=== PATIENT | female | born 1955 | race Caucasian/White ===

== ENCOUNTER → 2020-04-24 11:39 | Outpatient (BNVA) | payer OTHER, SELFPAY | PROVIDERS: PCP Internal Medicine; Referring Provider Internal Medicine; Visit Provider Nurse Practitioner Family | DX: I25.84 Coronary atherosclerosis due to calcified coronary lesion (principal); I73.9 Peripheral vascular disease, unspecified; I10 Essential (primary) hypertension; F17.210 Nicotine dependence, cigarettes, uncomplicated; Z79.899 Other long term (current) drug therapy | CPT/HCPCS: 99213 ==

== ENCOUNTER → 2020-10-09 13:04 | Outpatient (BNVA) | payer OTHER, SELFPAY | PROVIDERS: PCP Internal Medicine; Visit Provider Internal Medicine Cardiovascular Disease | DX: I20.8 Other forms of angina pectoris (principal); I10 Essential (primary) hypertension; Z79.899 Other long term (current) drug therapy | CPT/HCPCS: 93005; 99212 ==

== ENCOUNTER 2020-12-05 10:35 | Outpatient (REF) | payer OTHER, SELFPAY ==
[2020-12-05 11:24] LABS: Glucose Urine UA NEG (NEG); Leukocyte Esterase Urine NEG (NEG); Nitrite Urine NEG (NEG); PH 5.5 (5.0-8.0); Specific Gravity - Urine 1.025 (1.005-1.025); Urine Blood 1+ (NEG); Urine Ketones NEG (NEG); Urine Protein NEG (NEG-TRACE)
[2020-12-05 11:29] LABS: Appearance Urine CLEAR; Color Urine YELLOW
[2020-12-05 11:50] LABS: MANUAL DIFF FLAG NO
[2020-12-05 12:06] LABS: Basophils Absolute Auto 0.1 X10*3/uL (0.0-0.2); Basophils Percent Auto 1.2 % (0-2); Eosinophils Absolute Auto 0.1 X10*3/uL (0.0-0.4); Eosinophils Percent Auto 2.2 % (0-4); Hematocrit 47.3 % (37-47); Hemoglobin 15.6 g/dl (12.0-16.0); Imm Gran Abs Auto 0.03 X10*3/uL (0.00-0.03); Imm Gran Pct Auto 0.5 % (0.0-0.4); Lymphocytes Absolute Auto 1.3 X10*3/uL (1.2-4.9); Lymphocytes Percent Auto 21.6 % (20-40); Mean Corpuscular Hemoglobin 29.7 pg (27.0-33.0); Mean Corpuscular Volume 90.1 fL (80-98); Mean Platelet Volume 9.8 fL (9.4-12.3); Monocytes Absolute Auto 0.4 X10*3/uL (0.1-1.2); Monocytes Percent Auto 6.7 % (2-11); Neutrophils Absolute Auto 3.9 X10*3/uL (2.0-8.3); Neutrophils Percent Auto 67.8 % (45-73); Platelet Count 213 X10*3/uL (160-400); Red Blood Count 5.25 X10*6/uL (4.20-5.50); Red Cell Distribution Width 14.9 % (11.0-16.0); White Blood Count 5.8 X10*3/uL (4.8-10.8)
[2020-12-05 12:10] LABS: C Reactive Protein 0.82 mg/dL (< or = 0.50)
[2020-12-05 12:21] LABS: Estimated Average Glucose 114 mg/dL; Hemoglobin A1C 153.1221 umol/L; Hemoglobin A1c % 5.6 %
[2020-12-05 12:36] LABS: Bacteria Urine 3+ /LPF; Squamous Epithelial Cell Urine 4+ /LPF
[2020-12-05 12:40] LABS: Free T4 (Free Thyroxine) 0.96 ng/dL (0.71-1.85); Thyroid Stimulating Hormone 1.66 uIU/mL (0.32-4.0); Vitamin D 25-OH Total 13.5 ng/mL (>30)
[2020-12-05 12:42] LABS: B Type Natriuretic Peptide 12 pg/mL (<100); Folate 11.6 ng/mL (> or = 4.0); Vitamin B12 291 pg/mL (200-900)
[2020-12-05 12:45] LABS: Rheumatoid Factor < 15.0 IU/mL (<15.0)
[2020-12-05 12:49] LABS: Alanine Aminotransferase 64 U/L (0-31); Albumin Level 4.2 g/dL (3.5-5.0); Alkaline Phosphatase 77 U/L (39-117); Anion Gap 13 (12-20); Aspartate Amino Transferase 46 U/L (5-31); Bilirubin Total 0.6 mg/dL (0.0-1.0); Blood Urea Nitrogen 10 mg/dL (9-16); Calcium 9.3 mg/dL (8.4-10.2); Carbon Dioxide 26 mmol/L (22-29); Chloride 106 mmol/L (96-108); Cholesterol 198 mg/dL; Estimated Glomerular Filt Rate > 60; Glucose Random 98 mg/dL (60-115); HDL Cholesterol 48 mg/dL; LDL Cholesterol Calculated 91 mg/dl; Potassium 3.9 mmol/L (3.3-5.1); Sodium 141 mmol/L (135-145); Total Protein 6.6 g/dL (6.5-8.0); Triglycerides 296 mg/dL
[2020-12-05 13:32] LABS: Erythrocyte Sedimentation Rate 14 MM/HR (0-20)
[2020-12-06 06:47] LABS: Lyme Abs Screen <0.90 index
[2020-12-10 11:57] LABS: Cyclic Citrullinated Peptide <16 UNITS
== END 2020-12-05 10:36 | disposition home or self-care (01) ==
LOC: HO.LAB 10:35
PROVIDERS: Absent Provider Student in an Organized Health Care Education/Training Program; PCP Internal Medicine; Visit Provider Internal Medicine
DX: M25.50 Pain in unspecified joint (principal); I25.10 Atherosclerotic heart disease of native coronary artery without angina pectoris; I25.84 Coronary atherosclerosis due to calcified coronary lesion; E78.00 Pure hypercholesterolemia, unspecified
CPT/HCPCS: 36415; 80053; 80061; 81001; 82306; 82607; 82746; 83036; 83880; 84439; 84443; 85025; 85652; 86140; 86200; 86431; 86617; 86618

== ENCOUNTER 2020-12-30 08:16 | Outpatient (REF) | payer OTHER, SELFPAY ==
--- NOTE | ~2020-12-30 | US_ITS ---
EXAMINATION: US ABDOMEN COMPLETE CLINICAL INFORMATION: Elevated LFTs. COMPARISON: X-ray abdomen KUB 08/24/2016. Ultrasound abdomen 02/03/2016. CT abdomen and pelvis 07/05/2009. TECHNIQUE: Real-time imaging of the abdominal viscera. FINDINGS: PANCREAS: Normal. ABDOMINAL AORTA: The proximal, mid, and distal segments are normal in caliber. INFERIOR VENA CAVA: Visualized portions are normal. LIVER: The liver is normal in size. The liver contour is normal. Liver echotexture is increased. No focal hepatic lesion. There is no intrahepatic biliary duct dilatation seen. GALLBLADDER: Normal. The gallbladder is physiologically distended without evidence of stones, sludge, polyps, wall thickening or pericholecystic fluid. COMMON BILE DUCT: Normal in caliber measuring 0.5 cm in diameter. RIGHT KIDNEY: Normal. No hydronephrosis. No renal calculi or focal parenchymal lesions. The kidney measures 11.4 cm in maximum dimension. LEFT KIDNEY: There is a 1 x 0.7 x 0.7 cm cyst No hydronephrosis or renal calculi. The kidney measures 11.0 cm in maximum dimension. SPLEEN: Normal. The spleen measures 9.1 cm in maximum dimension. FREE FLUID: None. US/US abdomen complete IMPRESSION: Echogenic liver probably probably representing fatty infiltration. Small left renal cyst.
== END 2020-12-30 08:17 | disposition home or self-care (01) ==
LOC: HO.US 08:16
PROVIDERS: Visit Provider Internal Medicine
DX: R79.89 Other specified abnormal findings of blood chemistry (principal)
CPT/HCPCS: 76700

== ENCOUNTER 2021-01-03 12:30 | Outpatient (REF) | payer OTHER, SELFPAY ==
--- NOTE | ~2021-01-03 | MM_ITS ---
EXAMINATION: BONE DENSITOMETRY CLINICAL INDICATION: Other specified disorders of bone density and structure. COMPARISON: Baseline BD dated 02/18/2016. TECHNIQUE: Using a Estimize DXA System (software version: 13.1) manufactured by [employer], dual-energy x-ray absorptiometry was performed of the lumbar spine and left hip. The images are of good technical quality. Summary results are attached. FINDINGS: AP SPINE L1-L4: Current: BMD 1.394 g/cm2, Z-score 2.2, T-score 1.8, normal, 0.6% increase from baseline (<5% change is not significant). Baseline: BMD 1.385 g/cm2. LEFT FEMUR, NECK: Current: BMD 0.728 g/cm2, Z-score -1.5, T-score -2.2, osteopenia. Baseline: BMD 0.954 g/cm2. LEFT FEMUR, TOTAL: Current: BMD 0.949 g/cm2, Z-score -0.1, T-score -0.5, normal, 12.1% decrease from baseline (<5% change is not significant). Baseline: BMD 1.080 g/cm2. IDENTIFIED RISK FACTORS: Osteoporosis, tobacco use (current smoker), low calcium intake, history of fracture (adult), menopause. HISTORY OF FRACTURE: Other. Pelvis. MEDICATIONS: None listed. MM/XR DEXA axial skeleton IMPRESSION: 1. DIAGNOSIS: Osteopenia based on the lowest T-score value of -2.2 in the femoral neck applying World Health Organization criteria. 2. 10-YEAR FRACTURE RISK PREDICTION, FRAX: Major osteoporotic fracture (clinical spine, forearm, hip or shoulder) 17.3%. Hip fracture 4.4%. 3. Treatment Recommendations: NOF guidelines recommend consideration for treatment in postmenopausal women and men age 50 and older presenting with the following: -A hip or vertebral (clinical or morphometric) fracture. -T-score less than or equal to -2.5 at the femoral neck or spine after appropriate evaluation to exclude secondary causes. -Low bone mass at the hip or spine and a 10-year fracture probability by FRAX of greater than or equal to 3% for hip fracture or greater than or equal to 20% for major osteoporotic fracture based on the [place] adapted WHO algorithm. 4. Other Recommendations: All treatment decisions require clinical judgment and consideration of individual patient factors, including patient preferences, comorbidities, previous drug use, risk factors not captured in the FRAX model (e.g. frailty, falls, vitamin D deficiency, increased bone turnover, interval significant decline in bone density) and possible under or overestimation of fracture risk by FRAX. Additional medical evaluation for secondary cause of low bone mineral density may be appropriate. FUTURE SCAN RECOMMENDATION: People with diagnosed cases of osteoporosis or at high risk for fracture should have regular bone mineral density tests. For patients eligible for Medicare, routine testing is allowed once every 2 years. The testing frequency can be increased to one year for patients who have rapidly progressing disease, those who are receiving or discontinuing medical therapy to restore bone mass, or have additional risk factors.
--- NOTE | ~2021-01-03 | MM_ITS ---
EXAMINATION: MM SCREENING DIGITAL BREAST TOMOSYNTHESIS, BILATERAL CLINICAL INFORMATION: Screening. Asymptomatic. History LCIS left breast, stereotactic biopsy 2010. No additional LCIS at excision. The lifetime risk of breast cancer based on the Tyrer-Cuzick Model is 43%. COMPARISON: Mammography: 04/19/2019, and prior exams dating back to 11/11/2009. TECHNIQUE: Digital breast tomosynthesis is performed in both the craniocaudal and mediolateral oblique views along with computer-aided detection (CAD). Synthesized 2D images are generated from the tomosynthesis. Additional left CC and bilateral MLO views are provided. FINDINGS: There are scattered areas of fibroglandular density (ACR BI-RADS breast composition Category b). Right breast parenchymal pattern is similar to prior studies. There is no interval mass or developing density or architectural abnormality. No abnormal calcifications. The bilateral axilla and skin contours are unremarkable. Left breast has some minor scarring upper outer quadrant similar to prior exams consistent with prior excisional biopsy. There is new left high attenuation smooth tubular mass mid central upper outer quadrant near area of scarring measuring 2 cm in length and under 0.3 cm thickness. This may represent focal duct ectasia. The high attenuation may suggest milk of calcium. No architectural abnormality. Patient will be recalled for additional imaging. MM/MM tomosynthesis screening BI IMPRESSION: 1. Left: New focal high attenuation tubular mass possibly duct ectasia mid upper outer quadrant. 2. Right: No mammographic evidence of malignancy. ASSESSMENT: BI-RADS 0: Incomplete - Need Additional Imaging Evaluation RECOMMENDATION: 1. Additional views of the left breast (magnification CC, magnification ML) 2. Targeted ultrasound left breast. 3. Radiology department staff will contact the patient for additional imaging. This patient's information was entered into a reminder system with a target due date for their next mammogram.
== END 2021-01-03 12:31 | disposition home or self-care (01) ==
LOC: HO.MAMMO 12:30
PROVIDERS: Visit Provider Internal Medicine
DX: Z12.31 Encounter for screening mammogram for malignant neoplasm of breast (principal); M81.0 Age-related osteoporosis without current pathological fracture; M85.80 Other specified disorders of bone density and structure, unspecified site; Z72.0 Tobacco use; Z78.0 Asymptomatic menopausal state
CPT/HCPCS: 77063; 77067; 77080

== ENCOUNTER 2021-01-17 12:07 | Outpatient (REF) | payer OTHER, SELFPAY ==
--- NOTE | ~2021-01-17 | US_ITS ---
EXAMINATION: MM DIAGNOSTIC DIGITAL MAMMOGRAPHY, LEFT US DIAGNOSTIC ULTRASOUND BREAST, LEFT CLINICAL INFORMATION: Recall from screening for new smooth high attenuation tubular mass mid central upper outer left breast near area of old scarring. Prior history left LCIS status post excision 12/30/2010. TC score 43%. COMPARISON: Mammography: 01/03/2021, 04/19/2019 TECHNIQUE: Digital mammography is performed in the following views: Magnification CC, magnification ML Ultrasound left breast is targeted to the outer quadrant. Grayscale imaging is performed without and with harmonics. FINDINGS: There are scattered areas of fibroglandular density (ACR BI-RADS breast composition Category b). The additional views show similar findings to the screening exam 01/03/2021. There is a tubular macrolobulated high attenuation mass upper outer quadrant near prior area of excisional biopsy measuring approximately 2.2 cm in length and up to 0.3 cm thickness. There are no individual calcification particles or layering milk of calcium. No spiculation. Margins are smooth. Targeted ultrasound demonstrates no cystic or solid mass or architectural abnormality. There is no ultrasound correlate for finding on mammography. Results are discussed with the patient at time of visit. Findings left breast may represent focal duct ectasia possibly with uniform cast calcification. This could be sequela from prior mastitis although no history of mastitis is known. Given the past history left breast LCIS, stereotactic sampling is recommended for further assessment. At this time, patient has declined stereotactic sampling. US/US breast LT limited IMPRESSION: Probable focal duct ectasia mid left breast possibly with benign cast calcification. ASSESSMENT: BI-RADS 4: Suspicious (subcategory 4A: Low suspicion for malignancy) RECOMMENDATION: Stereotactic biopsy is recommended (currently declined by patient). If not performed, then follow-up left diagnostic mammography is recommended in 6 months. This patient's information was entered into a reminder system with a target due date for their next mammogram.
== END 2021-01-17 12:08 | disposition home or self-care (01) ==
LOC: HO.MAMMO 12:07
PROVIDERS: Visit Provider Internal Medicine
DX: N63.21 Unspecified lump in the left breast, upper outer quadrant (principal)
CPT/HCPCS: 76642; 77065

== ENCOUNTER 2021-02-11 12:48 | Outpatient (REF) | payer OTHER, SELFPAY ==
[2021-02-11 14:11] LABS: Alanine Aminotransferase 33 U/L (0-31); Albumin Level 4.1 g/dL (3.5-5.0); Alkaline Phosphatase 72 U/L (39-117); Aspartate Amino Transferase 26 U/L (5-31); Bilirubin Direct 0.2 mg/dL (0.0-0.5); Bilirubin Total 0.3 mg/dL (0.0-1.0); Total Protein 6.5 g/dL (6.5-8.0)
[2021-02-11 14:30] LABS: Glucose Urine UA NEG (NEG); Leukocyte Esterase Urine NEG (NEG); Nitrite Urine NEG (NEG); Specific Gravity - Urine 1.025 (1.005-1.025); Urine Blood TRACE (NEG); Urine Ketones NEG (NEG); Urine Protein NEG (NEG-TRACE)
[2021-02-11 14:36] LABS: Appearance Urine HAZY; Color Urine YELLOW
[2021-02-11 14:42] LABS: Squamous Epithelial Cell Urine 2+ /LPF; WBC Urine 0-2 /HPF (0-4)
[2021-02-12 08:13] LABS: HBc Num1 0.09 S/CO (0.00-0.79); Hepatitis B Core Antibody Nonreactive (Nonreactive); Hepatitis B Surface Antigen Negative (Negative); ~HepC Num1 0.24 S/CO (0.00-0.79); ~Hepatitis C Antibody Nonreactive (Nonreactive)
[2021-02-12 08:29] LABS: HBS Num1 0.28 mIU/mL (0-7.99); ~Hepatitis B Surface Antibody NONREACTIVE (Nonreactive)
== END 2021-02-11 12:49 | disposition home or self-care (01) ==
LOC: HO.LAB 12:48
PROVIDERS: PCP Internal Medicine; Visit Provider Internal Medicine
DX: R94.5 Abnormal results of liver function studies (principal)
CPT/HCPCS: 36415; 80076; 81001; 86704; 86706; 86803; 87340

== ENCOUNTER 2021-09-26 08:52 | Outpatient (REF) | payer OTHER, SELFPAY ==
[2021-09-26 09:55] LABS: Alanine Aminotransferase 79 U/L (0-31); Albumin Level 3.9 g/dL (3.5-5.0); Alkaline Phosphatase 111 U/L (39-117); Anion Gap 12 (12-20); Aspartate Amino Transferase 60 U/L (5-31); Bilirubin Total 0.6 mg/dL (0.0-1.0); Blood Urea Nitrogen 11 mg/dL (9-16); Calcium 9.8 mg/dL (8.4-10.2); Carbon Dioxide 30 mmol/L (22-29); Chloride 105 mmol/L (96-108); Cholesterol 129 mg/dL; Estimated Glomerular Filt Rate > 60; Glucose Random 103 mg/dL (60-115); HDL Cholesterol 57 mg/dL; LDL Cholesterol Calculated 47 mg/dl; Sodium 142 mmol/L (135-145); Total Protein 6.5 g/dL (6.5-8.0); Triglycerides 128 mg/dL
== END 2021-09-26 08:53 | disposition home or self-care (01) ==
LOC: HO.LAB 08:52
PROVIDERS: PCP Internal Medicine; Visit Provider Internal Medicine
DX: E78.00 Pure hypercholesterolemia, unspecified (principal)
CPT/HCPCS: 36415; 80053; 80061

== ENCOUNTER 2022-04-22 10:41 | Emergency (ER) | payer OTHER, SELFPAY | END 2022-04-22 11:51 | disposition left against medical advice (07) | PROVIDERS: Emergency Provider Emergency Medicine; PCP Internal Medicine | DX: R22.2 Localized swelling, mass and lump, trunk (principal) ==

== ENCOUNTER 2022-04-26 13:45 | Emergency (ER) | payer OTHER, SELFPAY ==
[2022-04-26 14:24] VITALS: BP 194/82; PULSE 85; RESP 19; TEMP 36.6; O2SAT 98; BMI 39.6
== END 2022-04-26 16:05 | disposition left against medical advice (07) ==
PROVIDERS: Emergency Provider Emergency Medicine; PCP Internal Medicine
DX: N64.4 Mastodynia (principal)
CPT/HCPCS: 99281

== ENCOUNTER 2022-04-30 10:57 | Outpatient (REF) | payer OTHER, SELFPAY ==
--- NOTE | ~2022-04-30 | MM_ITS ---
EXAMINATION: MM DIAGNOSTIC DIGITAL BREAST TOMOSYNTHESIS, BILATERAL CLINICAL INFORMATION: Due for yearly. History left LCIS 2010. Follow-up calcified duct ectasia mid upper outer left breast noted on prior imaging 01/03/2021 COMPARISON: Mammography: 01/17/2021, 01/03/2021, 04/19/2019, 04/13/2018; targeted left breast ultrasound 01/17/2021. TECHNIQUE: Digital breast tomosynthesis is performed in both the craniocaudal and mediolateral oblique views along with computer-aided detection (CAD). Synthesized 2D images are generated from the tomosynthesis. FINDINGS: The breasts are almost entirely fatty (ACR BI-RADS breast composition Category a). Background stromal markings are stable. Neither breast shows interval mass or architectural abnormality or abnormal calcifications. The 2 cm long calcified duct ectasia central mid outer left breast is similar to prior exam. Left breast will be reassessed again in 6 months. The axilla and skin contours are unremarkable. Results are provided to the patient at time of visit by the technologist. MM/MM tomosynthesis diagnostic BI IMPRESSION: Left: -Calcified duct ectasia central mid left breast stable from prior exam. Right: -No mammographic evidence of malignancy. ASSESSMENT: BI-RADS 3: Probably Benign RECOMMENDATION: Diagnostic left mammography in 6 months. This patient's information was entered into a reminder system with a target due date for their next mammogram.
== END 2022-04-30 10:58 | disposition home or self-care (01) ==
LOC: HO.MAMMO 10:57
PROVIDERS: PCP Internal Medicine; Visit Provider Internal Medicine
DX: R92.1 Mammographic calcification found on diagnostic imaging of breast (principal)
CPT/HCPCS: 77062; 77066

== ENCOUNTER 2023-05-11 14:11 | Outpatient (AMB) | payer MEDICARE, SELFPAY ==
[2023-05-11 14:25] VITALS: BP 162/98; PULSE 81; O2SAT 95
--- NOTE | 2023-05-11 14:25 | MHC.PC.OV ---
Vital Signs 05/11/23 14:25 Height 5 ft 1 in BMI Reason not done Patient refused/unable BP 162/98 H Blood Pressure Location Lt brachial Position Sitting Pulse 81 Pulse Source Pulse Oximeter Pulse Oximetry (%) 95 Oxygen Delivery Method Room Air Intake Visit Reasons: f/u appt Allergies codeine [Codeine] Allergy (Intermediate, Verified 05/11/23 14:26) VOMITING/RASH ibuprofen [IBUPROFEN] Allergy (Intermediate, Verified 05/11/23 14:26) TACHYCARDIA acetaminophen [From Vicodin] Allergy (Unknown, Verified 05/11/23 14:26) Unknown aspirin Allergy (Unknown, Verified 05/11/23 14:26) Unconscious fenofibrate Allergy (Unknown, Verified 05/11/23 14:26) Unknown hydrocodone [From Vicodin] Allergy (Unknown, Verified 05/11/23 14:26) Unknown Tobacco use date assessed: 05/11/23 Fall risk assessment: No Falls in past year Last assessed Fall Risk: 05/11/23 Dental Screening Dental Screen Date: 05/11/23 Did you have a dental visit in the last 12 months?: No Did you have a dental problem in the last 6 months where you did not have access to dental care?: No Was dental information given to patient?: Patient has dentist HPI f/u appt HPI Details 67-year-old obese female smoker with coronary artery disease, hypertension hypercholesterolemia, GERD and generalized anxiety disorder last seen in July 2022 having left breast calcification and advised to get the mammogram patient is here for follow-up. PAteint sees Dr. Jet kim has cataract. PAteint was seen by the eye doctor and was told poor vision - awaiting notes. [facility] Medical History (Updated 04/01/22 @ 13:43 by Katlin Otero MD) Insomnia Carpal tunnel syndrome Anxiety and depression Osteoarthritis Tobacco abuse Hypercholesterolemia Peripheral arterial disease Obesity (BMI 30-39.9) Gastroesophageal reflux disease Coronary artery disease Hypertension Obstructive sleep apnea Surgical History Status post insertion of drug-eluting stent into right coronary artery for coronary artery disease S/P breast biopsy, left History of knee replacement procedure of left knee History of tubal ligation Family History (Updated 05/11/23 @ 14:27 by Daysi Swain CMA) Father Cancer Mother Stroke Diabetes mellitus HTN (hypertension) Brother No problems noted. Brother No problems noted. Brother No problems noted. Brother No problems noted. Brother No problems noted. Brother No problems noted. Sister No problems noted. Sister No problems noted. Daughter No problems noted. Daughter No problems noted. Daughter No problems noted. Social History (Updated 12/05/20 @ 09:44 by Daysi Swain [facility]) Housing: Apartment Alcohol intake: current Alcohol intake frequency: a few times a month Patient Tobacco Use Status: Current everyday Tobacco user Tobacco use type: Cigarette Cigarettes Per Day: 5 e-Cigarette/Vaping Use: Never Used Second Hand Smoke Exposure: Yes service: No Current occupational status: unemployed Cognitive needs: No Hearing needs: No Vision needs: No Questionnaire PHQ-9 Over the last 2 weeks, how often have you been bothered by any of the following problems? 1. Little interest or pleasure in doing things: several days 2. Feeling down, depressed, or hopeless: several days 3. Trouble falling or staying asleep, or sleeping too much: several days 4. Feeling tired or having little energy: several days 5. Poor appetite or overeating: not at all 6. Feeling bad about yourself - or that you are a failure or have let yourself or your family down: not at all 7. Trouble concentrating on things, such as reading the newspaper or watching television: not at all 8. Moving or speaking so slowly that other people could have noticed. Or the opposite - being so fidgety or restless that you have been moving around a lot more than usual: not at all 9. Thoughts that you would be better off or of hurting yourself in some way: not at all Total score: 4 Depression Screening Interpretation: Positive Depression Screening Done: Yes Source: Developed by Drs. Jesús Smallwood, Pallavi Garcia, Maurice Farrell and colleagues, with an educational sofia from [employer]. Thrive Questionnaire Date Thrive assessed: 07/30/22 AUDIT C Alcohol Use Questionnaire (AUDIT-C) 1. How often do you have a drink containing alcohol?: 2-4 times a month 2. How many drinks containing alcohol do you have on a typical day when you are drinking?: 3 or 4 3. How often do you have six or more drinks on one occasion?: Never Total Score: 3 AJ-7 AMB Questionnaire AJ-7 Date AJ - 7 assessed: 07/30/22 Source: Developed by Drs. Jesús Smallwood, Pallavi Garcia, Maurice Farrell and colleagues, with an educational sofia from [employer]. Physical exam (Primary Care) Vital Signs: Last Vital Signs Pulse 81 05/11/23 14:25 BP 162/98 H 05/11/23 14:25 Pulse Ox 95 05/11/23 14:25 Oxygen Delivery Method Room Air 05/11/23 14:25 Tobacco/Smoking Status: Tobacco use Status Tobacco use date assessed 05/11/23 05/11/23 14:34 Patient Tobacco Use Status Current everyday Tobacco 05/11/23 14:34 Tobacco use type Cigarette 05/11/23 14:28 e-Cigarette/Vaping Use Never Used 05/11/23 14:28 PHQ-9: PHQ-9 Score PHQ-9: Total score 4 05/11/23 14:42 Depression Screening Interpretation: Positive Thrive Assessment: Date of Thrive Assessment Date Thrive assessed 07/30/22 05/11/23 14:28 Const General: alert; No acute distress Eyes Conjunctivae: conjunctivae normal Resp Auscultation: clear to auscultation bilaterally Cardio Rate: regular rate Rhythm: regular rhythm GI Inspection: Yes normal to inspection Extrem General: Yes normal to inspection and No edema Immunizations pneumoc 20-kristi conj-dip cr(PF) 0.5 mL IM syringe Performing Provider: Katlin Otero MD Performing Location: [facility] Administered by: Daysi Swain CMA on 05/11/23 14:56 Dose Route Admin Location Dispensed Lot Number Expiration Date NDC Family Practice Doctor 0.5 mL IM Left Deltoid 0.5 mL [id number] 04/04/24 7045-2978-76 [employer] VIS Given Date VIS Provided VIS Publication Date 05/11/23 Single Vaccine 21 Eligibility Eligibility Date Funding Source Not [facility] Eligible 05/11/23 Private Assessment and Plan Assessment & Plan (1) Colonoscopy refused: Code(s): Z53.20 - Procedure and treatment not carried out because of patient's decision for unspecified reasons (2) Hypertension: Comment: Mildly elevated Code(s): I10 - Essential (primary) hypertension Qualifiers: Hypertension type: essential hypertension Qualified Code(s): I10 - Essential (primary) hypertension Plan: Continue with blood pressure medication. Decrease salt intake and exercise patient is on amlodipine 5 mg once a day lisinopril 20 mg once a day and metoprolol 25 mg once a day (3) Obstructive sleep apnea: Comment: decline CPAP 09/2021 Code(s): G47.33 - Obstructive sleep apnea (adult) (pediatric) Plan: Discussed importance of treating sleep apnea (4) Coronary artery disease: Comment: ZACARIAS to mid RCA, OM 65-70% stenosis 2014. nuclear stress -01/2019 NML Code(s): I25.10 - Atherosclerotic heart disease of [place] coronary artery without angina pectoris Qualifiers: Coronary Disease-Associated Artery/Lesion type: due to calcified coronary lesion Qualified Code(s): I25.10 - Atherosclerotic heart disease of [place] coronary artery without angina pectoris; I25.84 - Coronary atherosclerosis due to calcified coronary lesion Plan: Control the cholesterol, weight, blood pressure, patient was advised to get the blood work not (5) Obesity (BMI 30-39.9): Code(s): E66.9 - Obesity, unspecified Plan: Diet and exercise (6) Gastroesophageal reflux disease: Code(s): K21.9 - Gastro-esophageal reflux disease without esophagitis Qualifiers: Esophagitis presence: esophagitis presence not specified Qualified Code(s): K21.9 - Gastro-esophageal reflux disease without esophagitis Plan: Avoid the foods that causes that usually spicy foods, tomato products, juices, coffee, soda and foods that your sensitive to. After eating do not lie down, allow 3-4 hours before in lie down. And keep the head of bed above 30 degrees to avoid the acid from going up. (7) Hypercholesterolemia: Comment: Discussed about the blood work. She does have the form and has been advised to do the blood work Code(s): E78.00 - Pure hypercholesterolemia, unspecified Plan: Avoid fried foods, chicken skin, eggs, butter margarine, pastries and meat. Be it pork or beef they have a lot of cholesterol LDL goal of less than 70 and triglyceride of less than 150. Patient on rosuvastatin 20 mg once a day reminded about blood work (8) Tobacco abuse: Comment: patient is not ready to stop yet Code(s): Z72.0 - Tobacco use Plan: Patient advised to stop! (9) Breast calcification, left: Code(s): R92.1 - Mammographic calcification found on diagnostic imaging of breast Plan: Patient is reminded about the mammogram Orders: Orders MM tomosynthesis diagnostic BI Today R92.1 - Mammographic calcification found on diagnostic imaging of breast Pneumococcal 20 Immunization Today Z23 - Encounter for immunization Coding Level of Care Code Est Pt Level 4 (87377) Diagnoses Colonoscopy refused Z53.20 Essential hypertension I10 Hypertension type: essential hypertension Obstructive sleep apnea G47.33 Coronary artery disease due to calcified coronary lesion I25.10; I25.84 Coronary Disease-Associated Artery/Lesion type: due to calcified coronary lesion Obesity (BMI 30-39.9) E66.9 Gastroesophageal reflux disease, unspecified whether esophagitis present K21.9 Esophagitis presence: esophagitis presence not specified Hypercholesterolemia E78.00 Tobacco abuse Z72.0 Breast calcification, left R92.1
== END 2023-05-11 15:03 | disposition home or self-care (01) ==
PROVIDERS: PCP Internal Medicine; Visit Provider Internal Medicine
DX: Z23 Encounter for immunization (principal); I10 Essential (primary) hypertension; G47.33 Obstructive sleep apnea (adult) (pediatric); I25.84 Coronary atherosclerosis due to calcified coronary lesion; E78.00 Pure hypercholesterolemia, unspecified; R92.1 Mammographic calcification found on diagnostic imaging of breast
CPT/HCPCS: 90471; 90677; 99214

== ENCOUNTER 2023-07-06 14:10 | Outpatient (REF) | payer MEDICARE, SELFPAY ==
--- NOTE | ~2023-07-06 | MM_ITS ---
EXAMINATION: MM DIAGNOSTIC DIGITAL BREAST TOMOSYNTHESIS, BILATERAL CLINICAL INFORMATION: Due for yearly. History of LCIS 2010. Follow-up calcified duct mid upper outer left breast noted on prior imaging. COMPARISON: Mammography: 04/30/2022, 01/17/2021, 01/03/2021, 04/19/2019, 04/13/2018; targeted left breast ultrasound 01/17/2021. TECHNIQUE: Digital breast tomosynthesis is performed in both the craniocaudal and mediolateral oblique views along with computer-aided detection (CAD). Synthesized 2D images are generated from the tomosynthesis. In addition, 2-D spot magnification CC and ML views were obtained of the left breast. FINDINGS: There are scattered areas of fibroglandular density (ACR BI-RADS breast composition Category b). Stable dystrophic linear calcification in the left breast upper slightly outer quadrant, middle one third. This is benign. Otherwise, there are no suspicious masses, suspicious grouped calcifications, or areas of architectural distortion in either breast. The parenchymal pattern is stable from prior exams. MM/MM tomosynthesis diagnostic BI IMPRESSION: No mammographic evidence of malignancy. Stable benign findings including linear calcification in the left breast. No need for further follow-up as this is benign. ASSESSMENT: BI-RADS BI-RADS 2 - Benign Findings RECOMMENDATION: 1 year F/U Results were provided to the patient at time of visit by the technologist. This patient's information was entered into a reminder system with a target due date for their next mammogram.
== END 2023-07-06 14:11 | disposition home or self-care (01) ==
LOC: HO.MAMMO 14:10
PROVIDERS: PCP Internal Medicine; Visit Provider Internal Medicine
DX: R92.1 Mammographic calcification found on diagnostic imaging of breast (principal)
CPT/HCPCS: 77062; 77066

== ENCOUNTER → 2023-07-06 14:30 | Outpatient (BNV) | payer MEDICARE, SELFPAY | PROVIDERS: PCP Internal Medicine; Visit Provider Radiology Diagnostic Radiology | DX: Z85.3 Personal history of malignant neoplasm of breast (principal) | CPT/HCPCS: 77066; G0279 ==

== ENCOUNTER 2024-04-14 11:18 | Outpatient (REF) | payer MEDICARE, SELFPAY ==
[2024-04-14 11:49] LABS: MANUAL DIFF FLAG NO
[2024-04-14 12:10] LABS: Basophils Absolute Auto 0.1 X10*3/uL (0.0-0.2); Basophils Percent Auto 1.1 % (0-2); Eosinophils Absolute Auto 0.1 X10*3/uL (0.0-0.4); Eosinophils Percent Auto 1.7 % (0-4); Hematocrit 46.3 % (37.0-47.0); Hemoglobin 16.5 g/dl (12.0-16.0); Imm Gran Abs Auto 0.04 X10*3/uL (0.00-0.03); Imm Gran Pct Auto 0.6 % (0.0-0.4); Lymphocytes Absolute Auto 1.2 X10*3/uL (1.2-4.9); Mean Corpuscular HGB Conc 35.6 g/dl (31.0-35.0); Mean Corpuscular Hemoglobin 31.5 pg (27.0-33.0); Mean Corpuscular Volume 88.5 fL (80.0-98.0); Mean Platelet Volume 9.5 fL (9.4-12.3); Monocytes Absolute Auto 0.6 X10*3/uL (0.1-1.2); Neutrophils Percent Auto 71.6 % (45-73); Platelet Count 203 X10*3/uL (160-400); Red Blood Count 5.23 X10*6/uL (4.20-5.50); Red Cell Distribution Width 13.6 % (11.0-16.0)
[2024-04-14 12:59] LABS: Alanine Aminotransferase 121 U/L (0-31); Albumin Level 4.2 g/dL (3.5-5.0); Alkaline Phosphatase 202 U/L (39-117); Anion Gap 15 (12-20); Aspartate Amino Transferase 154 U/L (5-31); Bilirubin Total 0.7 mg/dL (0.0-1.0); Blood Urea Nitrogen 6 mg/dL (9-16); Calcium 9.6 mg/dL (8.4-10.2); Carbon Dioxide 26 mmol/L (22-29); Chloride 97 mmol/L (96-108); Cholesterol 155 mg/dL (<200); Estimated Glomerular Filt Rate > 60; Glucose Random 104 mg/dL (60-115); HDL Cholesterol 71 mg/dL (>40); LDL Cholesterol Calculated 35 mg/dL (<100); Potassium 4.6 mmol/L (3.3-5.1); Sodium 133 mmol/L (135-145); Total Protein 7.3 g/dL (6.5-8.0); Triglycerides 247 mg/dL (<150)
[2024-04-14 13:15] LABS: Thyroid Stimulating Hormone 1.86 uIU/mL (0.32-4.0); Vitamin D 25-OH Total 11.2 ng/mL (>30)
[2024-04-14 13:32] LABS: Folate 5.9 ng/mL (> or = 4.0); Vitamin B12 361 pg/mL (200-900)
== END 2024-04-14 11:19 | disposition home or self-care (01) ==
LOC: HO.LAB 11:18
PROVIDERS: PCP Internal Medicine; Visit Provider Internal Medicine
DX: E78.00 Pure hypercholesterolemia, unspecified (principal)
CPT/HCPCS: 36415; 80053; 80061; 82306; 82607; 82746; 84439; 84443; 85025; 99387

== ENCOUNTER 2024-04-14 12:39 | Outpatient (AMB) | payer MEDICARE, SELFPAY ==
--- NOTE | 2024-04-14 12:50 | A.OFFPC_ITS ---
Vital Signs 04/14/24 12:51 Height 5 ft 1 in Weight 201 lb 2 oz BMI 38.0 BP 142/72 H Blood Pressure Location Lt brachial Position Sitting Pulse 108 H Pulse Source Pulse Oximeter Pulse Oximetry (%) 95 Oxygen Delivery Method Room Air Intake Visit Reasons: Annual Physical Intake Note: Patient is here today for a physical. Pt decline flu shot today. Orthopedics Teacher Required: No Fitness Assistant: Not Required per policy Accompanied by: Self / Same As Patient Allergies codeine [Codeine] Allergy (Intermediate, Verified 04/14/24 12:51) VOMITING/RASH ibuprofen [IBUPROFEN] Allergy (Intermediate, Verified 04/14/24 12:51) TACHYCARDIA fenofibrate Allergy (Unknown, Verified 04/14/24 12:51) Unknown hydrocodone [From Vicodin] Allergy (Unknown, Verified 04/14/24 12:51) Unknown Medication List - Last Reconciled 04/14/24 by Katlin Otero MD alprazolam 0.25 mg PO BID-TID PRN 30 days amlodipine 5 mg PO DAILY 90 days aspirin 81 mg PO DAILY 90 days ezetimibe 10 mg PO DAILY 90 days ibuprofen 600 mg PO TID lisinopril 20 mg PO DAILY 90 days metoprolol succinate ER 25 mg PO DAILY omeprazole 20 mg PO DAILY 90 days rosuvastatin 20 mg PO DAILY zolpidem 5 mg PO BEDTIME PRN 30 days Tobacco use date assessed: 04/14/24 Fall risk assessment: No Falls in past year Last assessed Fall Risk: 04/14/24 Dental Screening Dental Screen Date: 04/14/24 Did you have a dental visit in the last 12 months?: No Did you have a dental problem in the last 6 months where you did not have access to dental care?: No Was dental information given to patient?: No HPI Annual Physical HPI Details 68-year-old obese female smoker with mul tiple medical problems hypertension obstructive sleep apnea coronary artery disease GERD hypercholesterolemia coming in for physical. Last seen in 05/24/2023. Patient's mammogram is up-to-date bone density is due declined colonoscopy. ran out of med for 2 months already. decline lung cancer screening, dizzy , nausea admits to run out of med [facility] Medical History (Updated 04/14/24 @ 13:39 by Katlin Otero MD) Breast cancer screening by mammogram Insomnia Carpal tunnel syndrome Anxiety and depression Osteoarthritis Tobacco abuse Hypercholesterolemia Peripheral arterial disease Obesity (BMI 30-39.9) Gastroesophageal reflux disease Coronary artery disease Hypertension Obstructive sleep apnea Surgical History Status post insertion of drug-eluting stent into right coronary artery for coronary artery disease S/P breast biopsy, left History of knee replacement procedure of left knee History of tubal ligation Family History Father Cancer Mother Stroke Diabetes mellitus HTN (hypertension) Brother No problems noted. Brother No problems noted. Brother No problems noted. Brother No problems noted. Brother No problems noted. Brother No problems noted. Sister No problems noted. Sister No problems noted. Daughter No problems noted. Daughter No problems noted. Daughter No problems noted. Social History (Updated 04/14/24 @ 13:27 by Katlin Otero MD) Housing: Apartment Alcohol intake: current Alcohol intake frequency: a few times a month Comment: QOD 5 drinks Patient Tobacco Use Status: Current everyday Tobacco user Tobacco use type: Cigarette Cigarette Packs Per Day: 0.5 Cigarettes Per Day: 4 Years Smoked: started 20 years old e-Cigarette/Vaping Use: Never Used Second Hand Smoke Exposure: Yes service: No Current occupational status: unemployed Cognitive needs: Yes (walker) Hearing needs: No Vision needs: No Questionnaire PHQ-9 Over the last 2 weeks, how often have you been bothered by any of the following problems? 1. Little interest or pleasure in doing things: nearly every day 2. Feeling down, depressed, or hopeless: several days 3. Trouble falling or staying asleep, or sleeping too much: several days 4. Feeling tired or having little energy: several days 5. Poor appetite or overeating: nearly every day 6. Feeling bad about yourself - or that you are a failure or have let yourself or your family down: not at all 7. Trouble concentrating on things, such as reading the newspaper or watching television: several days 8. Moving or speaking so slowly that other people could have noticed. Or the opposite - being so fidgety or restless that you have been moving around a lot more than usual: not at all 9. Thoughts that you would be better off or of hurting yourself in some way: not at all Total score: 10 Depression Screening Interpretation: Positive Depression Screening Done: Yes Source: Developed by Drs. Jesús Smallwood, Pallavi Garcia, Maurice Farrell and colleagues, with an educational sofia from [employer]. Thrive Questionnaire Date Thrive assessed: 04/14/24 I am a: Patient What is your living situation today?: I have a steady place to live Within the past 12 months, did the food you bought not last and you didn't have the money to get more?: Often true Within the past 12 months, did you worry whether your food would run out before you got money to buy more?: Often true Do you have trouble paying for medicines?: I choose not to answer this question Do you have trouble getting transportation to medical appointments?: I choose not to answer this question Do you have trouble paying your heating and electricity bill?: I choose not to answer this question Do you have trouble taking care of your child, family member or friend?: No Do you have trouble with day-to-day activities such as bathing, preparing meals, shopping, managing finances, etc.?: I choose not to answer this question Are you currently unemployed and looking for a job?: I choose not to answer this question Are you interested in more education?: I choose not to answer this question Please select the resources that you would like help with: Daily support Currently or been in a relationship where the following occur: No concerns reported THRIVE Score: 2 AUDIT C Alcohol Use Questionnaire (AUDIT-C) 1. How often do you have a drink containing alcohol?: 2-3 times a week 2. How many drinks containing alcohol do you have on a typical day when you are drinking?: 3 or 4 3. How often do you have six or more drinks on one occasion?: Weekly Total Score: 7 AJ-7 AMB Questionnaire AJ-7 Date JA - 7 assessed: 04/14/24 Feeling nervous, anxious, or on edge: 3 = Nearly every day Not being able to stop or control worryin = Nearly every day Worrying too much about different things: 3 = Nearly every day Trouble relaxin = More than half the days Being so restless that it is hard to sit still: 0 = Not at all Becoming easily annoyed or irritable: 2 = More than half the days Feeling afraid as if something awful might happen: 2 = More than half the days Total AJ-7 score (0-4 normal; 5-9 mild; 10-14 moderate; 15-21 severe): 15 Source: Developed by Drs. Jesús Smallwood, Pallavi Garcia, Maurice Farrell and colleagues, with an educational sofia from [employer]. Review of Systems Const Denies poor appetite and Denies weakness Eyes Denies no additional complaints ENT Reports Normal hearing present, Denies dizziness, Denies nasal congestion, Denies tinnitus and Denies sore throat Card Denies chest pain, Denies syncope, Denies rapid heart rate and Denies dyspnea Resp Denies cough and Denies dyspnea GI Denies change in stool character, Reports constipation, Denies diarrhea, Denies nausea and Denies vomiting Denies urinary frequency, Denies difficulty voiding and Denies dysuria Neuro Reports Normal hearing present, Denies confusion, Denies dizziness, Denies syncope and Denies weakness Psych Denies confusion Physical exam (Primary Care) Vital Signs: Last Vital Signs Pulse 108 H 04/14/24 12:51 BP 142/72 H 04/14/24 12:51 Pulse Ox 95 04/14/24 12:51 Oxygen Delivery Method Room Air 04/14/24 12:51 BMI result Body Mass Index 38.0 Tobacco/Smoking Status: Tobacco use Status Tobacco use date assessed 04/14/24 04/14/24 12:54 Patient Tobacco Use Status Current everyday Tobacco 04/14/24 12:54 Tobacco use type Cigarette 04/14/24 12:54 e-Cigarette/Vaping Use Never Used 04/14/24 12:54 PHQ-9: PHQ-9 Score PHQ-9: Total score 04/14/24 12:54 Depression Screening Interpretation: Positive Thrive Assessment: Date of Thrive Assessment Date Thrive assessed 04/14/24 04/14/24 12:54 Currently or been in a relationship where the following occur: No concerns reported Const General: No confusion Orientation/consciousness: No confusion HENMT Head: Yes normocephalic Ears: external ears normal and TM's normal bilaterally Face and sinus: Yes normal facial exam Mouth: moist mucous membranes Throat: Yes tonsils normal Eyes Conjunctivae: conjunctivae normal Pupils: Equal, round and reactive pupils present and Pupil accommodation reflex normal Direct Ophthalmoscopy: normal light reflex Neck Neck: No lymphadenopathy Thyroid: Thyroid normal Chest Chest palpation & inspection: normal inspection of the chest Resp Effort & Inspection: normal respiratory effort and no audible wheezes Auscultation: clear to auscultation bilaterally, no crackles, no wheezes and lung sounds not diminished Cardio Rate: regular rate Rhythm: regular rhythm Peripheral pulses: radial pulses present and dorsalis pedis present GI Palpation (GI): no masses Auscultation: normal bowel sounds and normoactive bowel sounds Rectal Exam - Female: deferred Skin General skin exam: no rashes or lesions noted Rashes: no rashes Neuro General: No confusion Cranial nerves: Yes Equal, round and reactive pupils present and Yes Normal hearing present Cognition (Neuro): normal cognition Gait exam (Neuro): Normal gait present Motor exam (neuro): 5/5 motor strength present throughout Deep tendon reflexes (DTR's): Right brachioradialis reflex intensity grade: 2+, Left brachioradialis reflex intensity grade: 2+, Right patellar reflex intensity grade: 2+ and Left patellar reflex intensity grade: 2+ Extrem General: No edema Coding Level of Care Code New Pt Prev Care 12-17y(24195) Diagnoses Annual physical exam Z00.00 Fatty liver K76.0 Tobacco abuse Z72.0 Coronary artery disease due to calcified coronary lesion I25.10; I25.84 Coronary Disease-Associated Artery/Lesion type: due to calcified coronary lesion Essential hypertension I10 Hypertension type: essential hypertension Gastroesophageal reflux disease, unspecified whether esophagitis present K21.9 Esophagitis presence: esophagitis presence not specified Obesity (BMI 30-39.9) E66.9 Peripheral arterial disease I73.9 Hypercholesterolemia E78.00 Generalized anxiety disorder F41.1 Assessment & Plan Assessment & Plan (1) Annual physical exam: Code(s): Z00.00 - Encounter for general adult medical examination without abnormal findings Category: Medical Plan: Patient is advised to eat healthy, keep well hydrated, keep active and have adequate sleep. (2) Fatty liver: Code(s): K76.0 - Fatty (change of) liver, not elsewhere classified Category: Medical Plan: Low-fat diet (3) Tobacco abuse: Comment: patient is not ready to stop yet Code(s): Z72.0 - Tobacco use Category: Medical Plan: Patient is strongly advised to stop smoking (4) Coronary artery disease: Comment: ZACARIAS to mid RCA, OM 65-70% stenosis 2015. nuclear stress -01/2019 NML Code(s): I25.10 - Atherosclerotic heart disease of [place] coronary artery without angina pectoris Category: Medical Qualifiers: Coronary Disease-Associated Artery/Lesion type: due to calcified coronary lesion Qualified Code(s): I25.10 - Atherosclerotic heart disease of [place] coronary artery without angina pectoris; I25.84 - Coronary atherosclerosis due to calcified coronary lesion Plan: Control the cholesterol, weight, blood pressure, stop smoking (5) Hypertension: Comment: Mildly elevated Code(s): I10 - Essential (primary) hypertension Category: Medical Qualifiers: Hypertension type: essential hypertension Qualified Code(s): I10 - Essential (primary) hypertension Plan: Continue with blood pressure medication. Decrease salt intake and exercise on lisinopril 20 mg once a day metoprolol 25 mg once a day (6) Gastroesophageal reflux disease: Code(s): K21.9 - Gastro-esophageal reflux disease without esophagitis Category: Medical Qualifiers: Esophagitis presence: esophagitis presence not specified Qualified Code(s): K21.9 - Gastro-esophageal reflux disease without esophagitis Plan: Avoid the foods that causes that usually spicy foods, tomato products, juices, coffee, soda and foods that your sensitive to. After eating do not lie down, allow 3-4 hours before in lie down. And keep the head of bed above 30 degrees to avoid the acid from going up. (7) Obesity (BMI 30-39.9): Code(s): E66.9 - Obesity, unspecified Category: Medical Plan: Diet and exercise (8) Peripheral arterial disease: Comment: Follows with Dr. Weiss Ultrasound July 2019 right moderate external iliac occluded SFA left occluded external iliac and SFA Code(s): I73.9 - Peripheral vascular disease, unspecified Category: Medical Plan: When sitting down elevate the legs, exercise, and support stockings (9) Hypercholesterolemia: Comment: Discussed about the blood work. She does have the form and has been advised to do the blood work Code(s): E78.00 - Pure hypercholesterolemia, unspecified Category: Medical Plan: Avoid fried foods, chicken skin, eggs, butter margarine, pastries and meat. Be it pork or beef they have a lot of cholesterol LDL goal of less than 70 and triglyceride of less than 150 on Zetia and rosuvastatin (10) Generalized anxiety disorder: Comment: Declined referral for counseling September 2021 Code(s): F41.1 - Generalized anxiety disorder Category: Medical Plan: Continue with present medication Medications: Refilled zolpidem 5 mg PO BEDTIME 30 days PRN 30 tabs 0RF insomnia G47.00 - Insomnia, unspecified metoprolol succinate ER 25 mg PO DAILY 90 tabs 3RF I10 - Essential (primary) hypertension alprazolam 0.25 mg PO BID-TID 30 days PRN 75 tabs 0RF sleep
[2024-04-14 12:51] VITALS: BP 142/72; PULSE 108; O2SAT 95; BMI 38.0
== END 2024-04-14 13:42 | disposition home or self-care (01) ==
PROVIDERS: PCP Internal Medicine; Visit Provider Internal Medicine
DX: Z00.00 Encounter for general adult medical examination without abnormal findings (principal); K76.0 Fatty (change of) liver, not elsewhere classified; Z72.0 Tobacco use; I73.9 Peripheral vascular disease, unspecified; Z68.38 Body mass index [BMI] 38.0-38.9, adult; E66.9 Obesity, unspecified; I25.10 Atherosclerotic heart disease of native coronary artery without angina pectoris; I25.84 Coronary atherosclerosis due to calcified coronary lesion; I10 Essential (primary) hypertension; K21.9 Gastro-esophageal reflux disease without esophagitis; E78.00 Pure hypercholesterolemia, unspecified; F41.1 Generalized anxiety disorder

== ENCOUNTER 2024-07-21 10:07 | Outpatient (AMB) | payer MEDICARE, SELFPAY ==
--- NOTE | 2024-07-21 10:20 | A.OFFPC_ITS ---
Vital Signs 07/21/24 10:21 Height 5 ft 1 in BMI Reason not done Patient refused/unable BP 130/64 Blood Pressure Location Lt brachial Position Sitting Pulse 77 Pulse Source Pulse Oximeter Temp 97.1 F Temp Source Skin Pulse Oximetry (%) 97 Oxygen Delivery Method Room Air Intake Visit Reasons: Requesting PIERCING MILL OPERATOR services Intake Note: Patient is here to follow up on Requesting PIERCING MILL OPERATOR service. Pt decline flu shot today. Poultry Trimmer Required: No Hide Cooking Operator: Present Allergies codeine [Codeine] Allergy (Intermediate, Verified 07/21/24 10:21) VOMITING/RASH ibuprofen [IBUPROFEN] Allergy (Intermediate, Verified 07/21/24 10:21) TACHYCARDIA fenofibrate Allergy (Unknown, Verified 07/21/24 10:21) Unknown hydrocodone [From Vicodin] Allergy (Unknown, Verified 07/21/24 10:21) Unknown Medication List - Last Reconciled 07/21/24 by Katlin Otero MD alprazolam 0.25 mg PO BID-TID PRN 30 days amlodipine 5 mg PO DAILY 90 days aspirin 81 mg PO DAILY 90 days ezetimibe 10 mg PO DAILY 90 days ibuprofen 600 mg PO TID lisinopril 20 mg PO DAILY 90 days metoprolol succinate ER 25 mg PO DAILY omeprazole 20 mg PO DAILY 90 days rosuvastatin 20 mg PO DAILY zolpidem 5 mg PO BEDTIME PRN 30 days Tobacco use date assessed: 07/21/24 Fall risk assessment: 2 + Falls in past year Last assessed Fall Risk: 07/21/24 Dental Screening Dental Screen Date: 07/21/24 Did you have a dental visit in the last 12 months?: No Did you have a dental problem in the last 6 months where you did not have access to dental care?: No Was dental information given to patient?: Patient has dentist HPI Requesting PIERCING MILL OPERATOR services HPI Details smoking 3-4 cigarettes per week stopped alcohol. asking help at home states vision problem and problem with mobility asking for help with washing and drying of clothes, help with getting upstairs, has no car, help with food shopping, getting in andout of the bath tub, , cannot lift due to mobility issues 68-year-old obese smoker female with multiple medical problems coronary artery disease hypertension obstructive sleep apnea but declined CPAP GERD peripheral arterial disease hypercholesterolemia fatty liver generalized anxiety disorder coming in for follow-up. Patient was last seen in April. Patient is asking for some help at home as she has mobility issues with her peripheral arterial disease as well as osteoarthritis. Patient has been seen by the vascular before but has not followed up as the patient has been noncompliant. [facility] Medical History (Updated 07/21/24 @ 11:18 by Katlin Otero MD) Breast cancer screening by mammogram Insomnia Carpal tunnel syndrome Anxiety and depression Osteoarthritis Tobacco abuse Hypercholesterolemia Peripheral arterial disease Obesity (BMI 30-39.9) Gastroesophageal reflux disease Coronary artery disease Hypertension Obstructive sleep apnea Surgical History Status post insertion of drug-eluting stent into right coronary artery for coronary artery disease S/P breast biopsy, left History of knee replacement procedure of left knee History of tubal ligation Family History Father Cancer Mother Stroke Diabetes mellitus HTN (hypertension) Brother No problems noted. Brother No problems noted. Brother No problems noted. Brother No problems noted. Brother No problems noted. Brother No problems noted. Sister No problems noted. Sister No problems noted. Daughter No problems noted. Daughter No problems noted. Daughter No problems noted. Social History (Updated 07/21/24 @ 10:26 by ANNE Cole) Housing: Apartment Alcohol intake: current Alcohol intake frequency: holidays/special occasions only Comment: QOD 5 drinks Patient Tobacco Use Status: Current everyday Tobacco user Tobacco use type: Cigarette Cigarette Packs Per Day: 0.5 Cigarettes Per Day: 1 (3 a week) Years Smoked: started 20 years old Packs Per Year: 0 Packs per year/per ci.00 e-Cigarette/Vaping Use: Never Used Second Hand Smoke Exposure: Yes service: No Current occupational status: unemployed Cognitive needs: Yes (walker) Hearing needs: No Vision needs: No Questionnaire PHQ-9 Over the last 2 weeks, how often have you been bothered by any of the following problems? 1. Little interest or pleasure in doing things: more than half the days 2. Feeling down, depressed, or hopeless: more than half the days 3. Trouble falling or staying asleep, or sleeping too much: several days 4. Feeling tired or having little energy: nearly every day 5. Poor appetite or overeating: not at all 6. Feeling bad about yourself - or that you are a failure or have let yourself or your family down: more than half the days 7. Trouble concentrating on things, such as reading the newspaper or watching television: not at all 8. Moving or speaking so slowly that other people could have noticed. Or the opposite - being so fidgety or restless that you have been moving around a lot more than usual: several days 9. Thoughts that you would be better off or of hurting yourself in some way: not at all Total score: 11 Depression Screening Interpretation: Positive Depression Screening Done: Yes Source: Developed by Drs. Jesús Smallwood, Pallavi Garcia, Maurice Farrell and colleagues, with an educational sofia from [employer] Thrive Questionnaire Date Thrive assessed: 07/21/24 AUDIT C Alcohol Use Questionnaire (AUDIT-C) 1. How often do you have a drink containing alcohol?: Monthly or less 2. How many drinks containing alcohol do you have on a typical day when you are drinking?: 1 or 2 Total Score: 1 AJ-7 AMB Questionnaire AJ-7 Date AJ - 7 assessed: 07/21/24 Feeling nervous, anxious, or on edge: 2 = More than half the days (on medication) Not being able to stop or control worryin = Several days Worrying too much about different things: 1 = Several days Trouble relaxin = Not at all Being so restless that it is hard to sit still: 0 = Not at all Becoming easily annoyed or irritable: 0 = Not at all Feeling afraid as if something awful might happen: 0 = Not at all Total AJ-7 score (0-4 normal; 5-9 mild; 10-14 moderate; 15-21 severe): 4 Source: Developed by Drs. Jesús Smallwood, Pallavi Garcia, Maurice Farrell and colleagues, with an educational sofia from [employer] Physical exam (Primary Care) Vital Signs: Last Vital Signs Temp 97.1 F 07/21/24 10:21 Pulse 77 07/21/24 10:21 BP 130/64 07/21/24 10:21 Pulse Ox 97 07/21/24 10:21 Oxygen Delivery Method Room Air 07/21/24 10:21 Tobacco/Smoking Status: Tobacco use Status Tobacco use date assessed 07/21/24 07/21/24 10:24 Patient Tobacco Use Status Current everyday Tobacco 07/21/24 10:26 Tobacco use type Cigarette 07/21/24 10:26 e-Cigarette/Vaping Use Never Used 07/21/24 10:26 PHQ-9: PHQ-9 Score PHQ-9: Total score 11 07/21/24 11:02 Depression Screening Interpretation: Positive Thrive Assessment: Date of Thrive Assessment Date Thrive assessed 07/21/24 07/21/24 10:24 Const General: alert; No acute distress Eyes Conjunctivae: conjunctivae normal Resp Auscultation: clear to auscultation bilaterally Cardio Rate: regular rate Rhythm: regular rhythm GI Inspection: Yes normal to inspection Extrem General: Yes normal to inspection and No edema Coding Level of Care Code Est Pt Level 4 (36874) Complex EM visit Add On G2211 Diagnoses Fatty liver K76.0 Impaired fasting blood sugar R73.01 Tobacco abuse Z72.0 Hypercholesterolemia E78.00 Peripheral arterial disease I73.9 Obesity (BMI 30-39.9) E66.9 Gastroesophageal reflux disease, unspecified whether esophagitis present K21.9 Esophagitis presence: esophagitis presence not specified Coronary artery disease due to calcified coronary lesion I25.10; I25.84 Coronary Disease-Associated Artery/Lesion type: due to calcified coronary lesion Essential hypertension I10 Hypertension type: essential hypertension Obstructive sleep apnea G47.33 Mammogram declined Z53.20 Assessment & Plan Assessment & Plan (1) Fatty liver: Code(s): K76.0 - Fatty (change of) liver, not elsewhere classified Category: Medical Plan: low fat diet and move /activity (2) Impaired fasting blood sugar: Code(s): R73.01 - Impaired fasting glucose Category: Medical Plan: Decrease the amount of carbohydrate intake, pasta, bread, rice and potatoes are all sugar and that is aside from all the sweet stuff, remember that fruits are good but they are Sweet also. Will do retesting (3) Tobacco abuse: Comment: patient is not ready to stop yet 07/2024 states has decreased to 4 a day Code(s): Z72.0 - Tobacco use Category: Medical Plan: Patient is strongly advised to stop smoking! (4) Hypercholesterolemia: Comment: Discussed about the blood work. She does have the form and has been advised to do the blood work Code(s): E78.00 - Pure hypercholesterolemia, unspecified Category: Medical Plan: Avoid fried foods, chicken skin, eggs, butter margarine, pastries and meat. Be it pork or beef they have a lot of cholesterol on rosuvastatin 20 mg once a day (5) Peripheral arterial disease: Comment: Follows with Dr. Weiss Ultrasound July 2019 right moderate external iliac occluded SFA left occluded external iliac and SFA Code(s): I73.9 - Peripheral vascular disease, unspecified Category: Medical Plan: will follow up on the peripheral vascular disease with US. Patient is strongly advised to stop smoking (6) Obesity (BMI 30-39.9): Code(s): E66.9 - Obesity, unspecified Category: Medical Plan: Diet and exercise (7) Gastroesophageal reflux disease: Code(s): K21.9 - Gastro-esophageal reflux disease without esophagitis Category: Medical Qualifiers: Esophagitis presence: esophagitis presence not specified Qualified Code(s): K21.9 - Gastro-esophageal reflux disease without esophagitis Plan: Avoid the foods that causes that usually spicy foods, tomato products, juices, coffee, soda and foods that your sensitive to. After eating do not lie down, allow 3-4 hours before in lie down. And keep the head of bed above 30 degrees to avoid the acid from going up. Stop smoking! (8) Coronary artery disease: Comment: ZACARIAS to mid RCA, OM 65-70% stenosis 2015. nuclear stress -01/2019 NML Code(s): I25.10 - Atherosclerotic heart disease of [place] coronary artery without angina pectoris Category: Medical Qualifiers: Coronary Disease-Associated Artery/Lesion type: due to calcified coronary lesion Qualified Code(s): I25.10 - Atherosclerotic heart disease of [place] coronary artery without angina pectoris; I25.84 - Coronary atherosclerosis due to calcified coronary lesion Plan: Control the cholesterol, weight, blood pressure, on aspirin 81 mg once a day (9) Hypertension: Comment: Mildly elevated Code(s): I10 - Essential (primary) hypertension Category: Medical Qualifiers: Hypertension type: essential hypertension Qualified Code(s): I10 - Essential (primary) hypertension Plan: Continue with blood pressure medication. Decrease salt intake and exercise on metoprolol 25 mg once a day lisinopril 20 mg once a day amlodipine 5 mg once a day (10) Obstructive sleep apnea: Comment: decline CPAP 09/2021 Code(s): G47.33 - Obstructive sleep apnea (adult) (pediatric) Category: Medical Plan: Patient can not tolerate the CPAP (11) Mammogram declined: Code(s): Z53.20 - Procedure and treatment not carried out because of patient's decision for unspecified reasons Category: Medical Plan: Declined mammogram Orders: Orders US arterial duplex LE BI Today I73.9 - Peripheral vascular disease, unspecified XR knee standing BI Today M19.90 - Unspecified osteoarthritis, unspecified site Referrals Vascular Surgery Referral I73.9 - Peripheral vascular disease, unspecified
[2024-07-21 10:21] VITALS: BP 130/64; PULSE 77; TEMP 36.2; O2SAT 97
== END 2024-07-21 11:21 | disposition home or self-care (01) ==
PROVIDERS: PCP Internal Medicine; Visit Provider Internal Medicine
DX: K76.0 Fatty (change of) liver, not elsewhere classified (principal); R73.01 Impaired fasting glucose; Z72.0 Tobacco use; E78.00 Pure hypercholesterolemia, unspecified; I73.9 Peripheral vascular disease, unspecified; E66.9 Obesity, unspecified; K21.9 Gastro-esophageal reflux disease without esophagitis; I25.10 Atherosclerotic heart disease of native coronary artery without angina pectoris; I25.84 Coronary atherosclerosis due to calcified coronary lesion; I10 Essential (primary) hypertension; G47.33 Obstructive sleep apnea (adult) (pediatric); Z53.20 Procedure and treatment not carried out because of patient's decision for unspecified reasons

== ENCOUNTER → 2024-07-21 10:07 | Outpatient (BNVA) | payer MEDICARE, SELFPAY | PROVIDERS: PCP Internal Medicine; Visit Provider Internal Medicine | DX: K86.0 Alcohol-induced chronic pancreatitis (principal); R73.01 Impaired fasting glucose; E78.00 Pure hypercholesterolemia, unspecified; I73.9 Peripheral vascular disease, unspecified; E66.9 Obesity, unspecified; K21.9 Gastro-esophageal reflux disease without esophagitis; I25.10 Atherosclerotic heart disease of native coronary artery without angina pectoris; I25.84 Coronary atherosclerosis due to calcified coronary lesion; I10 Essential (primary) hypertension; G47.33 Obstructive sleep apnea (adult) (pediatric); Z72.0 Tobacco use | CPT/HCPCS: 99212 ==

== ENCOUNTER 2024-09-21 12:33 | Outpatient (REF) | payer MEDICARE, SELFPAY ==
--- NOTE | ~2024-09-21 | US_ITS ---
EXAMINATION: Noninvasive assessment of the bilateral lower extremities with ARTERIAL DUPLEX. CLINICAL INFORMATION: Peripheral vascular disease, unspecified. TECHNIQUE: Duplex Doppler techniques with waveform analysis and measurement of velocities in the bilateral common femoral, profunda femoris, superficial femoral, popliteal and tibial arteries were performed. Additionally, ankle pulse volume recordings, ankle pressure measurements and ankle brachial indices were obtained of the lower extremity arterial system bilaterally. The study was performed only at rest. COMPARISON: May 25, 2019 demonstrated occluded superficial femoral arteries bilaterally. FINDINGS: DIRECT DUPLEX DOPPLER FINDINGS: RIGHT LEG: Common femoral artery: 185 cm/s, phasicity: Monophasic. Spectral broadening. Profunda femoris artery: 93 cm/s, phasicity: Monophasic waveform. Spectral broadening. Superficial femoral artery (proximal): No flow. Superficial femoral artery (mid): No flow. Superficial femoral artery (distal): 106 cm/s, phasicity: Monophasic. Spectral broadening. Popliteal artery: 62 cm/s, phasicity: Monophasic. Spectral broadening. Posterior tibial artery: 9 cm/s, phasicity: Monophasic. Spectral broadening. Trickling flow. Peroneal artery: No flow.. Anterior tibial artery: 35 cm/s, phasicity: Monophasic. Spectral broadening. Dorsalis pedis artery: 20 cm/s, phasicity:Reversal monophasic. LEFT LEG: Common femoral artery: 90 cm/s, phasicity: Monophasic. Spectral broadening. Profunda femoris artery: 36 cm/s, phasicity: Monophasic. Spectral broadening. Superficial femoral artery (proximal): No flow. Superficial femoral artery (mid): No flow. Superficial femoral artery (distal): 30 cm/s, phasicity: Monophasic. Spectral broadening. Popliteal artery: 32 cm/s, phasicity: Monophasic. Spectral broadening. Posterior tibial artery: 25 cm/s, phasicity: Monophasic. Spectral broadening. Peroneal artery: 16 cm/s, phasicity: Monophasic. Spectral broadening. Anterior tibial artery: No flow. Dorsalis pedis artery: 35 cm/s, phasicity: Monophasic. Spectral broadening. 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 Severe inflow disease throughout the interrogated vessels. 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 Severe inflow disease throughout the lower extremity. Electronically signed by: Salvatore Lucero MD 09/22/2024 07:40 AM EDT RP
== END 2024-09-21 12:34 | disposition home or self-care (01) ==
LOC: HO.US 12:33
PROVIDERS: PCP Internal Medicine; Visit Provider Internal Medicine
DX: I73.9 Peripheral vascular disease, unspecified (principal)
CPT/HCPCS: 93925

== ENCOUNTER → 2024-09-21 12:36 | Outpatient (BNV) | payer MEDICARE, SELFPAY | PROVIDERS: PCP Internal Medicine; Visit Provider Radiology Diagnostic Radiology | DX: I70.203 Unspecified atherosclerosis of native arteries of extremities, bilateral legs (principal) | CPT/HCPCS: 93925 ==

== ENCOUNTER 2024-09-26 13:21 | Outpatient (REF) | payer MEDICARE, SELFPAY ==
[2024-09-26 16:46] LABS: Blood Urea Nitrogen 13 mg/dL (9-16); Estimated Glomerular Filt Rate > 60
== END 2024-09-26 13:22 | disposition home or self-care (01) ==
LOC: HO.LAB 13:21
PROVIDERS: PCP Internal Medicine; Visit Provider Surgery Vascular Surgery
DX: I73.9 Peripheral vascular disease, unspecified (principal)
CPT/HCPCS: 36415; 82565; 84520; 99212

== ENCOUNTER 2024-09-26 13:21 | Outpatient (AMB) | payer MEDICARE, SELFPAY ==
--- NOTE | 2024-09-26 13:29 | MHC.OFFVIS ---
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 Left LE worse than Right LE for numbness and increasing pain on the right LE recently. Was seen previously in 2018/2019 Rn Acute Dialysis Required: No Accompanied by: Self / Same As Patient Allergies codeine [Codeine] Allergy (Intermediate, Verified 09/26/24 13:40) VOMITING/RASH ibuprofen [IBUPROFEN] Allergy (Intermediate, Verified 09/26/24 13:40) TACHYCARDIA fenofibrate Allergy (Unknown, Verified 09/26/24 13:40) Unknown hydrocodone [From Vicodin] Allergy (Unknown, Verified 09/26/24 13:40) Unknown HPI HPI STOCK CRANE OPERATOR/[facility] referral s/p Arterial US 09/21/24: Details: The patient is a 68-year-old female presenting with peripheral vascular disease. She previously sought care in 2019, where significant arterial blockages were identified and similar symptoms noted. The patient's walking distance is limited by severe osteoarthritis in her knee and hip. On good days, she can manage short walks but must stop fci through the parking lot for rest due to discomfort and left leg weakness. She reports her left leg dragging and feeling dense, complicating activities like entering the bath. The patient stopped smoking in August 2024. She drinks minimally and denies having diabetes. Arterial blockages remain a concern, necessitating improved imaging for current status assessment. She is reluctant to undergo more surgeries due to her surgical history. Additionally, her eyesight is impaired severely, anticipated to require surgical attention given non-responsiveness to glasses. She now presents for vascular evaluation [facility] Medical History (Updated 09/26/24 @ 13:56 by Blas Weiss MD) Breast cancer screening by mammogram Insomnia Carpal tunnel syndrome Anxiety and depression Osteoarthritis Tobacco abuse Hypercholesterolemia Peripheral arterial disease Obesity (BMI 30-39.9) Gastroesophageal reflux disease Coronary artery disease Hypertension Obstructive sleep apnea Surgical History Status post insertion of drug-eluting stent into right coronary artery for coronary artery disease S/P breast biopsy, left History of knee replacement procedure of left knee History of tubal ligation Family History Father Cancer Mother Stroke Diabetes mellitus HTN (hypertension) Brother No problems noted. Brother No problems noted. Brother No problems noted. Brother No problems noted. Brother No problems noted. Brother No problems noted. Sister No problems noted. Sister No problems noted. Daughter No problems noted. Daughter No problems noted. Daughter No problems noted. Social History (Updated 09/26/24 @ 13:41 by ANNE Us) Housing: Apartment Alcohol intake: current Alcohol intake frequency: holidays/special occasions only Comment: QOD 5 drinks Patient Tobacco Use Status: Former Tobacco user Tobacco use type: Cigarette Years Smoked: started 20 years old e-Cigarette/Vaping Use: Never Used Second Hand Smoke Exposure: Yes service: No Current occupational status: unemployed Cognitive needs: Yes (walker) Hearing needs: No Vision needs: No Review of Systems Const All systems reviewed & are unremarkable except as noted in HPI and below Reports no additional complaints ENT Reports Normal hearing present Card Denies chest pain, Denies chest pain at rest, Denies chest pain with activity and Denies pedal edema Resp Denies cough GI Denies abdominal pain Musc Denies abnormal gait, Denies muscle cramps and Denies radiating pain into limb Skin/Breast Denies skin ulcer and Denies wounds Neuro Reports Normal hearing present and Denies abnormal gait Psych Reports no additional complaints Physical Exam Const General: cooperative, healthy appearing and comfortable Orientation/consciousness: oriented to person, oriented to place and oriented to time HEENT Head: Yes normal to inspection Neck Neck: Yes normal visual inspection Carotids: no bruits Chest Chest palpation & inspection: normal inspection of the chest Resp Effort & Inspection: normal respiratory effort and able to speak in complete sentences Auscultation: clear to auscultation bilaterally, no crackles, no rales, no rhonchi and no wheezes Cardio Other: Bilateral DP signals Rate: regular rate Rhythm: regular rhythm Heart sounds: S1 normal heart sound present and S2 normal heart sound present Bruits: no carotid bruits GI Inspection: Yes normal to inspection Skin Wounds: no wounds Hair: normal Neuro General: oriented to person, oriented to place and oriented to time Cranial nerves: Yes CN's II-XII intact bilaterally and Yes Normal hearing present Cognition (Neuro): normal cognition Motor exam (neuro): 5/5 motor strength present throughout Extrem Other: venous exam: No significant superficial varicosities or spider telangiectasias, minimal edema General: No clubbing, No cyanosis and No edema Psych Appearance: grossly normal Mental Status: mental status grossly normal Speech and movement: Normal speech and movement present Results Reviewed Results Reviewed: Carotid ultrasound dated 11/23/2018 demonstrates bilateral 0-49% stenosis Arterial duplex dated 05/25/2019 demonstrates bilateral SFA occlusions with concerns of inflow disease. Arterial duplex dated 09/21/2024 demonstrates bilateral SFA occlusions with concerns of inflow disease. Concerns of severe peripheral vascular disease. Assessment & Plan Assessment & Plan (1) Peripheral arterial disease: Comment: Code(s): I73.9 - Peripheral vascular disease, unspecified Category: Medical Plan: In short patient has activity limiting claudication. I discussed conducting CT angiography with the patient to ascertain the extent of vascular issues and provide a visual assessment of arterial health via special contrast dye. The patient was informed that this approach would help identify treatment pathways without immediate resort to surgical options. Risk factor modification was discussed. Patient will follow up with testing. Thank you for allowing us to assist in her care. If there are any questions or concerns please do not hesitate to contact us. Orders: Orders Blood Urea Nitrogen Today I73.9 - Peripheral vascular disease, unspecified Creatinine Today I73.9 - Peripheral vascular disease, unspecified CT angio abd aorta runoff 1 Week I73.9 - Peripheral vascular disease, unspecified Coding Level of Care Code Est Pt Level 4 (37332) Diagnoses Peripheral arterial disease I73.9
== END 2024-09-26 14:41 | disposition home or self-care (01) ==
LOC: HO.HVS 13:22
PROVIDERS: PCP Internal Medicine; Visit Provider Surgery Vascular Surgery
DX: I73.9 Peripheral vascular disease, unspecified (principal)
CPT/HCPCS: 99214

== ENCOUNTER 2024-11-21 10:49 | Outpatient (REF) | payer MEDICARE, SELFPAY ==
--- NOTE | ~2024-11-21 | CT_ITS ---
CLINICAL HISTORY: I73.9 - Peripheral vascular disease, unspecified --- Additional Notes or Special In structions: Known bilateral SFA occlusions concerns of inflow disease. CT angiogram abdominal aorta with iliofemoral runoff Study performed with contrast, multiplanar and 3D reconstructions Comparison: No prior studies of any type Findings: Abdominal aorta normal caliber without dissection. Celiac and mesenteric origins patent without stenosis. Bilateral renal artery origins patent without stenosis. Bilateral severe common iliac artery stenosis. Bilateral iliac bifurcation occlusions noted. Dense calcification limits luminal assessment in the pelvis. There is reconstitution of external iliac arteries in the pelvis. Distal external iliac arteries very small caliber. Severe bilateral common femoral artery stenosis. Occluded proximal bilateral superficial femoral arteries. Reconstitution noted in the distal aspect of left SFA. Right SFA is occluded to the popliteal artery. There is flow within bilateral popliteal arteries. There are very small in caliber and not well assessed. Trifurcation vessels patent proximally bilaterally. They are very small in caliber and not well assessed. Trifurcation vessels taper distally and are unopacified. This may be due to contrast bolus timing. Delayed series does not show additional finding. Lung bases clear. No acute bony abnormalities. Hepatomegaly with fatty infiltration of the liver. No significant focal abnormality in the liver. Heterogeneous low-density noted in spleen. Study is obtained in early arterial phase contrast. Findings are not well assessed on this study. Pancreas and adrenal glands unremarkable. Cholelithiasis without gallbladder distention. No significant focal renal abnormalities. No renal stones or hydronephrosis. No free fluid or adenopathy in the pelvis. No diverticulitis. Appendix unremarkable. Impression: Heterogeneous low-density areas throughout the spleen Findings not well assessed on this arterial phase study Bilateral severe common iliac artery stenosis Bilateral external iliac artery occlusions Bilateral proximal SFA occlusions Patent small caliber bilateral popliteal arteries Diffuse disease below the knees This document has been electronically signed by: Nabil Rolon MD on 11/21/2024 22:35:18
[2024-11-21] MEDS: iohexoL 350 MG/ML 75 ML INFUS..BTL 100 ML IV (12:27)
[2024-11-21 12:52] LABS: Creatinine POC 0.9 mg/dL (0.5-1.4); GFR POC > 60
== END 2024-11-21 10:50 | disposition home or self-care (01) ==
LOC: HO.CT 10:49
PROVIDERS: PCP Internal Medicine; Visit Provider Surgery Vascular Surgery
DX: I73.9 Peripheral vascular disease, unspecified (principal)
CPT/HCPCS: 75635; 82565; Q9967

== ENCOUNTER → 2024-11-21 10:51 | Outpatient (BNV) | payer MEDICARE, SELFPAY | PROVIDERS: PCP Internal Medicine; Visit Provider Radiology Diagnostic Radiology | DX: I74.09 Other arterial embolism and thrombosis of abdominal aorta (principal) | CPT/HCPCS: 75635 ==

== ENCOUNTER 2024-12-11 11:15 | Outpatient (AMB) | payer MEDICARE, SELFPAY ==
[2024-12-11 11:17] VITALS: BP 142/60; PULSE 94; TEMP 36.2; O2SAT 96
--- NOTE | 2024-12-11 11:17 | MHC.PC.OV ---
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 Operator Required: No Automation Lead: Present Allergies codeine [Codeine] Allergy (Intermediate, Verified 12/11/24 11:17) VOMITING/RASH ibuprofen [IBUPROFEN] Allergy (Intermediate, Verified 12/11/24 11:17) TACHYCARDIA fenofibrate Allergy (Unknown, Verified 12/11/24 11:17) Unknown hydrocodone [From Vicodin] Allergy (Unknown, Verified 12/11/24 11:17) Unknown tramadol Adverse Reaction (Intermediate, Unverified 12/11/24 12:09) palpitations Tobacco use date assessed: 12/11/24 Fall risk assessment: 2 + Falls in past year Last assessed Fall Risk: 07/21/24 Dental Screening Dental Screen Date: 07/21/24 Did you have a dental visit in the last 12 months?: No Did you have a dental problem in the last 6 months where you did not have access to dental care?: No Was dental information given to patient?: Patient has dentist HPI Hemorrhoids HPI Details 08/2024 no nergy and sick, stopped smoking 08/06/2024 since coughing developed hemorrhoids andwants surgeon , occ bleeding PFSH Medical History Breast cancer screening by mammogram Insomnia Carpal tunnel syndrome Anxiety and depression Osteoarthritis Tobacco abuse Hypercholesterolemia Peripheral arterial disease Obesity (BMI 30-39.9) Gastroesophageal reflux disease Coronary artery disease Hypertension Obstructive sleep apnea Surgical History Status post insertion of drug-eluting stent into right coronary artery for coronary artery disease S/P breast biopsy, left History of knee replacement procedure of left knee History of tubal ligation Family History Father Cancer Mother Stroke Diabetes mellitus HTN (hypertension) Brother No problems noted. Brother No problems noted. Brother No problems noted. Brother No problems noted. Brother No problems noted. Brother No problems noted. Sister No problems noted. Sister No problems noted. Daughter No problems noted. Daughter No problems noted. Daughter No problems noted. Social History (Reviewed 12/11/24 @ 11:34 by Britni Dietz [facility]) Housing: Apartment Alcohol intake: current Alcohol intake frequency: holidays/special occasions only Comment: QOD 5 drinks Patient Tobacco Use Status: Former Tobacco user Tobacco use type: Cigarette Cigarette Packs Per Day: 0.5 Cigarettes Per Day: 1 (3 a week) Years Smoked: started 20 years old e-Cigarette/Vaping Use: Never Used Second Hand Smoke Exposure: Yes service: No Current occupational status: unemployed Cognitive needs: Yes (walker) Hearing needs: No Vision needs: No Questionnaire PHQ-9 Over the last 2 weeks, how often have you been bothered by any of the following problems? 1. Little interest or pleasure in doing things: nearly every day 2. Feeling down, depressed, or hopeless: nearly every day 3. Trouble falling or staying asleep, or sleeping too much: more than half the days 4. Feeling tired or having little energy: more than half the days 5. Poor appetite or overeating: more than half the days 6. Feeling bad about yourself - or that you are a failure or have let yourself or your family down: more than half the days 7. Trouble concentrating on things, such as reading the newspaper or watching television: more than half the days 8. Moving or speaking so slowly that other people could have noticed. Or the opposite - being so fidgety or restless that you have been moving around a lot more than usual: more than half the days 9. Thoughts that you would be better off or of hurting yourself in some way: more than half the days Total score: 20 Source: Developed by Drs. Jesús Smallwood, Pallavi Garcia, Maurice Farrell and colleagues, with an educational sofia from [employer]. Thrive Questionnaire Date Thrive assessed: 07/21/24 I am a: Patient What is your living situation today?: I choose not to answer this question Within the past 12 months, did the food you bought not last and you didn't have the money to get more?: I choose not to answer this question Within the past 12 months, did you worry whether your food would run out before you got money to buy more?: I choose not to answer this question Do you have trouble paying for medicines?: I choose not to answer this question Do you have trouble getting transportation to medical appointments?: I choose not to answer this question Do you have trouble paying your heating and electricity bill?: I choose not to answer this question Do you have trouble taking care of your child, family member or friend?: I choose not to answer this question Do you have trouble with day-to-day activities such as bathing, preparing meals, shopping, managing finances, etc.?: I choose not to answer this question Are you currently unemployed and looking for a job?: I choose not to answer this question Are you interested in more education?: I choose not to answer this question Please select the resources that you would like help with: Housing/Assisted Currently or been in a relationship where the following occur: No concerns reported THRIVE Score: 0 AUDIT C Alcohol Use Questionnaire (AUDIT-C) 1. How often do you have a drink containing alcohol?: 2-3 times a week 2. How many drinks containing alcohol do you have on a typical day when you are drinking?: 5 or 6 3. How often do you have six or more drinks on one occasion?: Weekly Total Score: 8 AJ-7 AMB Questionnaire AJ-7 Date AJ - 7 assessed: 07/21/24 Feeling nervous, anxious, or on edge: 2 = More than half the days Not being able to stop or control worryin = More than half the days Worrying too much about different things: 2 = More than half the days Trouble relaxin = More than half the days Being so restless that it is hard to sit still: 2 = More than half the days Becoming easily annoyed or irritable: 2 = More than half the days Feeling afraid as if something awful might happen: 2 = More than half the days Total AJ-7 score (0-4 normal; 5-9 mild; 10-14 moderate; 15-21 severe): 14 Source: Developed by Drs. Jesús Smallwood, Pallavi Garcia, Maurice Farrell and colleagues, with an educational sofia from [employer]. Physical exam (Primary Care) Vital Signs: Last Vital Signs Temp 97.1 F 12/11/24 11:17 Pulse 94 12/11/24 11:17 BP 142/60 H 12/11/24 11:17 Pulse Ox 96 12/11/24 11:17 Oxygen Delivery Method Room Air 12/11/24 11:17 Tobacco/Smoking Status: Tobacco use Status Tobacco use date assessed 12/11/24 12/11/24 11:19 Patient Tobacco Use Status Former Tobacco user 12/11/24 11:19 Tobacco use type Cigarette 12/11/24 11:19 e-Cigarette/Vaping Use Never Used 12/11/24 11:19 PHQ-9: PHQ-9 Score PHQ-9: Total score 20 12/11/24 12:01 Thrive Assessment: Date of Thrive Assessment Date Thrive assessed 07/21/24 12/11/24 11:19 Currently or been in a relationship where the following occur: No concerns reported Const General: alert; No acute distress Eyes Conjunctivae: conjunctivae normal Resp Auscultation: clear to auscultation bilaterally Cardio Rate: regular rate Rhythm: regular rhythm GI Other: rectal mass noted 5 by 3 inches Inspection: Yes normal to inspection Extrem General: Yes normal to inspection and No edema Coding Level of Care Code Est Pt Level 4 (14520) Complex EM visit Add On G2211 Diagnoses Alcohol abuse F10.10 Impaired fasting blood sugar R73.01 Fatty liver K76.0 Generalized anxiety disorder F41.1 Peripheral arterial disease I73.9 Coronary artery disease due to calcified coronary lesion I25.10; I25.84 Coronary Disease-Associated Artery/Lesion type: due to calcified coronary lesion Gastroesophageal reflux disease, unspecified whether esophagitis present K21.9 Esophagitis presence: esophagitis presence not specified Essential hypertension I10 Hypertension type: essential hypertension Obstructive sleep apnea G47.33 Hypercholesterolemia E78.00 Tobacco abuse Z72.0 Rectal mass K62.89 Assessment & Plan Assessment & Plan (1) Alcohol abuse: Code(s): F10.10 - Alcohol abuse, uncomplicated Category: Social Hx Plan: Patient is strongly advised to abstain from alcohol (2) Impaired fasting blood sugar: Code(s): R73.01 - Impaired fasting glucose Category: Medical Plan: Decrease the amount of carbohydrate intake, pasta, bread, rice and potatoes are all sugar and that is aside from all the sweet stuff, remember that fruits are good but they are Sweet also. (3) Fatty liver: Code(s): K76.0 - Fatty (change of) liver, not elsewhere classified Category: Medical Plan: Low-fat diet and exercise (4) Generalized anxiety disorder: Comment: Declined referral for counseling September 2021 Code(s): F41.1 - Generalized anxiety disorder Category: Medical Plan: Patient on alprazolam as needed (5) Peripheral arterial disease: Comment: Code(s): I73.9 - Peripheral vascular disease, unspecified Category: Medical Plan: Patient follows up with vascular surgeon and last CT scan showing multiple occlusions and stenosis of the lower extremity November 2024 CT scan (6) Coronary artery disease: Comment: ZACARIAS to mid RCA, OM 65-70% stenosis 2014. nuclear stress -01/2019 NML Code(s): I25.10 - Atherosclerotic heart disease of [place] coronary artery without angina pectoris Category: Medical Qualifiers: Coronary Disease-Associated Artery/Lesion type: due to calcified coronary lesion Qualified Code(s): I25.10 - Atherosclerotic heart disease of [place] coronary artery without angina pectoris; I25.84 - Coronary atherosclerosis due to calcified coronary lesion Plan: Control the cholesterol, weight, blood pressure, patient is on aspirin 81 mg once a day (7) Gastroesophageal reflux disease: Code(s): K21.9 - Gastro-esophageal reflux disease without esophagitis Category: Medical Qualifiers: Esophagitis presence: esophagitis presence not specified Qualified Code(s): K21.9 - Gastro-esophageal reflux disease without esophagitis Plan: Avoid the foods that causes that usually spicy foods, tomato products, juices, coffee, soda and foods that your sensitive to. After eating do not lie down, allow 3-4 hours before in lie down. And keep the head of bed above 30 degrees to avoid the acid from going up. Stop smoking summation (8) Hypertension: Comment: Mildly elevated Code(s): I10 - Essential (primary) hypertension Category: Medical Qualifiers: Hypertension type: essential hypertension Qualified Code(s): I10 - Essential (primary) hypertension Plan: Continue with blood pressure medication. Decrease salt intake and exercise patient is on amlodipine 5 mg once a day lisinopril 20 mg once a day and metoprolol 25 mg once a day (9) Obstructive sleep apnea: Comment: decline CPAP 09/2021 Code(s): G47.33 - Obstructive sleep apnea (adult) (pediatric) Category: Medical Plan: Discussed about the importance of treatment of LOLIS (10) Hypercholesterolemia: Comment: Discussed about the blood work. She does have the form and has been advised to do the blood work Code(s): E78.00 - Pure hypercholesterolemia, unspecified Category: Medical Plan: Avoid fried foods, chicken skin, eggs, butter margarine, pastries and meat. Be it pork or beef they have a lot of cholesterol LDL goal of less than 70 and triglyceride of less than 150 on rosuvastatin 20 mg once a day (11) Tobacco abuse: Comment: patient is not ready to stop yet 07/2024 states has decreased to 4 a day, Stopped 08/2024 Code(s): Z72.0 - Tobacco use Category: Medical Plan: Patient is strongly advised to stop smoking! Discussed about lung cancer screening (12) Rectal mass: Code(s): K62.89 - Other specified diseases of anus and rectum Category: Medical Plan History of Present Illness The patient is a 68-year-old female who presents with severe hemorrhoids. The hemorrhoids developed following a period of intense coughing during acute illness approximately four months ago. The hemorrhoidal symptoms include significant visible protrusion and associated bleeding, which is intermittent but is notably painful, impacting her sleep and nutrition consumption over the past several months. Despite trialing self-administered interventions such as [id number] creams and sitz baths, she remains symptomatic. The patient has a complex medical history that includes obstructive sleep apnea, hypertension, coronary artery disease, and hepatic steatosis, among others, noting management with multiple medications. She also has a history of alcohol use and, notably, longstanding anxiety disorder treated with alprazolam. Recent laboratory data indicated liver dysfunction, dyslipidemia, and low sodium, warranting continued monitoring and management. The patient's smoking cessation efforts are notable, aligning with recent changes due to the impact of her illness earlier this year. Health Maintenance - Patient is overdue for a mammogram and bone density but has declined these screenings. - Due for a colonoscopy, however, the patient has also declined. - Strongly advised to abstain from alcohol and follow a low-fat diet and exercise routine; patient reports drinking four to six beers twice a week. - Patient advised on the importance of treatment compliance for obstructive sleep apnea. - Discussed smoking cessation, with positive progress as patient has refrained from smoking. - LDL cholesterol level to be kept below 70 mg/dL, and triglycerides less than 150 mg/dL. - Discussed lung cancer screening due to smoking history. - Encouragement of adherence to prescribed medications for comorbidities and lifestyle modifications to improve health outcomes. Social History - Former smoker, cessation of smoking since August 2024. - Reports alcohol usage: four to six beers, twice a week. - Reports living situation or specific family support status was not discussed. - Physical activity and employment status were not explicitly discussed in the conversation. Review of Systems - Gastrointestinal: Reports severe hemorrhoids, pain, and occasional bleeding with bowel movements. - Cardiovascular: Denies new or worsening symptoms. - Neurological: Denies changes in mental status. - Musculoskeletal: Reports ability limited by leg pain due to peripheral arterial disease. - Psychological: Reports anxiety symptoms managed with alprazolam. - Psychiatric: Denies current depressive symptoms, although reports history of crying spells related to hemorrhoidal issues. - Respiratory: Denies current cough, reports resolution since illness four months ago. Physical Exam - Gastrointestinal- Notable for severe external hemorrhoidal changes with visible external mass. Results - Last blood work (April 14, 2025): Mild elevation in liver enzymes (AST 154, ALT 121), low sodium, normal renal function, blood glucose 104, LDL 35, triglycerides 247, vitamin D low. - Computed Tomography (CT) Scan (November 21, 2024): Bilateral severe iliac artery stenosis, bilateral external iliac artery occlusions, bilateral proximal superficial femoral artery occlusions, patent bilateral popliteal arteries, diffuse disease below knees. Plan The visit primarily addressed the severe hemorrhoidal symptoms, warranting an urgent referral to a general surgeon for potential surgical intervention. Blood pressure management adjustments were made by reducing lisinopril to 10 mg daily based on her reported side effects. The continuation of rosuvastatin is crucial for maintaining target lipid levels, and adherence is strongly encouraged. Her consideration to resume CPAP despite initial decline remains critical for comprehensive obstructive sleep apnea management. Other chronic conditions and lifestyle modifications were reinforced, including alcohol intake reduction and the benefits of smoking cessation. Reevaluation of colorectal cancer screening plans was initiated despite current patient declination, with intentions addressed for following through at a subsequent time. A refill prescription of zopiclone was provided to aid with sleep disturbances. Patient was informed and verbally consented to the use of an ambient scribe for clinic note documentation during this visit. Discussion Notes I discussed with the patient the urgent need for a surgical evaluation of her severe hemorrhoidal condition due to its persistence and impact on her quality of life. We weighed the surgical risks against potential symptom resolution, leading to the patient's consent for a surgical referral. I outlined the importance of managing her hypertension and dyslipidemia using medications and lifestyle interventions, reinforcing instructions regarding dietary changes and alcohol reduction. I educated the patient on the vital role of CPAP therapy for her obstructive sleep apnea, despite her past declination, noting potential health risks without its use. Smoking cessation was a significant discussion point, with acknowledgment of her recent achievement and encouragement to maintain abstinence. The conversation included health maintenance and the importance of preventing disease progression associated with her multiple chronic conditions, especially underscoring colorectal cancer screening options. I addressed the patient's concerns about medication side effects and adjusted her antihypertensive regimen accordingly, also ensuring sleep support through medication management. Patient Instructions - Follow up with the surgeon as soon as possible regarding hemorrhoidal assessment and potential surgery. - Continue current medications, and reduce lisinopril to half dose (10 mg daily). - Abstain from alcohol; reduce intake if complete abstinence not possible. - Follow a low-fat diet and incorporate regular exercise into routine. - Continue rosuvastatin and aspirin as prescribed. - Refrain from smoking and continue to avoid tobacco. - Consider using alternate methods to manage obstructive sleep apnea if CPAP is not tolerated. - Complete any future recommended screenings for cancer on schedule. - Be keenly aware of symptom changes and seek care immediately if new concerns arise. Orders: Referrals General Surgery Referral K62.89 - Other specified diseases of anus and rectum Medications: New lidocaine HCl-hydrocortison ac 2 %-2 % (7 gram) 1 appl OK BID 1 ea 0RF K62.89 - Other specified diseases of anus and rectum
== END 2024-12-11 12:12 | disposition home or self-care (01) ==
LOC: HO.HMCH 11:16
PROVIDERS: PCP Internal Medicine; Visit Provider Internal Medicine
DX: F10.10 Alcohol abuse, uncomplicated (principal); R73.01 Impaired fasting glucose; K76.0 Fatty (change of) liver, not elsewhere classified; F41.1 Generalized anxiety disorder; I73.9 Peripheral vascular disease, unspecified; I25.10 Atherosclerotic heart disease of native coronary artery without angina pectoris; I25.84 Coronary atherosclerosis due to calcified coronary lesion; K21.9 Gastro-esophageal reflux disease without esophagitis; I10 Essential (primary) hypertension; G47.33 Obstructive sleep apnea (adult) (pediatric); E78.00 Pure hypercholesterolemia, unspecified; Z72.0 Tobacco use; K62.89 Other specified diseases of anus and rectum

== ENCOUNTER → 2024-12-11 11:15 | Outpatient (BNVA) | payer MEDICARE, SELFPAY | PROVIDERS: PCP Internal Medicine; Visit Provider Internal Medicine | DX: R73.01 Impaired fasting glucose (principal); K76.0 Fatty (change of) liver, not elsewhere classified; F41.1 Generalized anxiety disorder; I73.9 Peripheral vascular disease, unspecified; I25.10 Atherosclerotic heart disease of native coronary artery without angina pectoris; I25.84 Coronary atherosclerosis due to calcified coronary lesion; K21.9 Gastro-esophageal reflux disease without esophagitis; I10 Essential (primary) hypertension; G47.33 Obstructive sleep apnea (adult) (pediatric); E78.00 Pure hypercholesterolemia, unspecified; K62.89 Other specified diseases of anus and rectum; F10.10 Alcohol abuse, uncomplicated; Z72.0 Tobacco use | CPT/HCPCS: 99212 ==

== ENCOUNTER 2025-01-09 10:45 | Outpatient (AMB) | payer MEDICARE, SELFPAY ==
--- NOTE | 2025-01-09 10:47 | A.OFFVIS_ITS ---
Vital Signs 01/09/25 10:47 Height 5 ft 1 in Intake Visit Reasons: follow up s/p CTA Abd Aorta 11/21/24 Intake Note: follow up CTA w/ runoff 11/21/24. Pt states bilateral LE numbness, pain and cramping. Left LE worse than the Right LE. STates she has to physicially lift her left leg sometimes becasue it drags due to heaviness. Registered Dental Assistant Required: No Accompanied by: Self / Same As Patient Allergies codeine (Codeine) Allergy (Intermediate, Verified 01/09/25 10:51) VOMITING/RASH ibuprofen (IBUPROFEN) Allergy (Intermediate, Verified 01/09/25 10:51) TACHYCARDIA fenofibrate Allergy (Unknown, Verified 01/09/25 10:51) Unknown hydrocodone (From Vicodin) Allergy (Unknown, Verified 01/09/25 10:51) Unknown tramadol Adverse Reaction (Intermediate, Unverified 01/09/25 10:51) palpitations HPI HPI follow up s/p CTA Abd Aorta 11/21/24: Details: The patient is a 69-year-old female presenting for follow-up of peripheral vascular disease with a CT angiogram. The patient reports difficulty walking due to leg pain, which becomes severe enough to require sitting after walking approximately 50 feet. The left leg is reported to be worse than the right. A CT angiogram performed on 11/21/2024 revealed multiple arterial blockages. The patient has been advised that these blockages could lead to significant complications, including the risk of losing her legs if not addressed. The patient has multiple upcoming surgeries, including cataract surgery, which are currently prioritized over vascular intervention. FORMERLY [facility] Medical History Breast cancer screening by mammogram Insomnia Carpal tunnel syndrome Anxiety and depression Osteoarthritis Tobacco abuse Hypercholesterolemia Peripheral arterial disease Obesity (BMI 30-39.9) Gastroesophageal reflux disease Coronary artery disease Hypertension Obstructive sleep apnea Surgical History Status post insertion of drug-eluting stent into right coronary artery for coronary artery disease S/P breast biopsy, left History of knee replacement procedure of left knee History of tubal ligation Family History Father Cancer Mother Stroke Diabetes mellitus HTN (hypertension) Brother No problems noted. Brother No problems noted. Brother No problems noted. Brother No problems noted. Brother No problems noted. Brother No problems noted. Sister No problems noted. Sister No problems noted. Daughter No problems noted. Daughter No problems noted. Daughter No problems noted. Social History Housing: Apartment Alcohol intake: current Alcohol intake frequency: holidays/special occasions only Comment: QOD 5 drinks Patient Tobacco Use Status: Former Tobacco user Tobacco use type: Cigarette Cigarette Packs Per Day: 0.5 Cigarettes Per Day: 1 (3 a week) Years Smoked: started 20 years old e-Cigarette/Vaping Use: Never Used Second Hand Smoke Exposure: Yes service: No Current occupational status: unemployed Cognitive needs: Yes (walker) Hearing needs: No Vision needs: No Review of Systems Const All systems reviewed & are unremarkable except as noted in HPI and below Reports no additional complaints ENT Reports Normal hearing present Card Denies chest pain, Denies chest pain at rest, Denies chest pain with activity and Denies pedal edema Resp Denies cough GI Denies abdominal pain Musc Denies abnormal gait, Denies muscle cramps and Denies radiating pain into limb Skin/Breast Denies skin ulcer and Denies wounds Neuro Reports Normal hearing present and Denies abnormal gait Psych Reports no additional complaints Physical Exam Const General: cooperative, healthy appearing and comfortable Orientation/consciousness: oriented to person, oriented to place and oriented to time HEENT Head: Yes normal to inspection Neck Neck: Yes normal visual inspection Carotids: no bruits Chest Chest palpation & inspection: normal inspection of the chest Resp Effort & Inspection: normal respiratory effort and able to speak in complete sentences Auscultation: clear to auscultation bilaterally, no crackles, no rales, no rhonchi and no wheezes Cardio Other: Bilateral DP signals Rate: regular rate Rhythm: regular rhythm Heart sounds: S1 normal heart sound present and S2 normal heart sound present Bruits: no carotid bruits GI Inspection: Yes normal to inspection Skin Wounds: no wounds Hair: normal Neuro General: oriented to person, oriented to place and oriented to time Cranial nerves: Yes CN's II-XII intact bilaterally and Yes Normal hearing present Cognition (Neuro): normal cognition Motor exam (neuro): 5/5 motor strength present throughout Extrem Other: venous exam: No significant superficial varicosities or spider telangiectasias, minimal edema General: No clubbing, No cyanosis and No edema Psych Appearance: grossly normal Mental Status: mental status grossly normal Speech and movement: Normal speech and movement present Results Reviewed Results Reviewed: CT angiogram dated 11/21/2024 demonstrates severe common iliac disease along with external iliac disease and bilateral SFA occlusions. Assessment & Plan Assessment & Plan (1) Peripheral arterial disease: Comment: Code(s): I73.9 - Peripheral vascular disease, unspecified Category: Medical Plan: I discussed with the patient the findings of the CT angiogram, which showed multiple arterial blockages. I explained the potential risks of not addressing these blockages, including the possibility of losing her legs. The patient expressed concerns about her upcoming surgeries, including cataract surgery, and decided to delay vascular intervention. I advised her to follow up in six months to reassess her condition and plan further management. Plan Patient was informed and verbally consented to the use of an ambient scribe for clinic note documentation during this visit. Patient Instructions: - Follow up in six months for reassessment of vascular condition. - Monitor for any worsening symptoms and seek medical attention if necessary. Coding Level of Care Code Est Pt Level 4 (34212) Diagnoses Peripheral arterial disease I73.9
== END 2025-01-09 11:15 | disposition home or self-care (01) ==
LOC: HO.HVS 10:46
PROVIDERS: PCP Internal Medicine; Visit Provider Surgery Vascular Surgery
DX: I73.9 Peripheral vascular disease, unspecified (principal)
CPT/HCPCS: 99214

== ENCOUNTER → 2025-01-09 10:45 | Outpatient (BNVA) | payer MEDICARE, SELFPAY | PROVIDERS: PCP Internal Medicine; Visit Provider Surgery Vascular Surgery | DX: I73.9 Peripheral vascular disease, unspecified (principal) | CPT/HCPCS: 99212 ==

== ENCOUNTER 2025-01-11 14:00 | Outpatient (REF) | payer MEDICARE, SELFPAY ==
[2025-01-11 16:50] LABS: Blood Urea Nitrogen 11 mg/dL (9-16); Estimated Glomerular Filt Rate > 60
== END 2025-01-11 14:01 | disposition home or self-care (01) ==
LOC: HO.LAB 14:00
PROVIDERS: PCP Internal Medicine; Visit Provider Surgery
DX: K62.89 Other specified diseases of anus and rectum (principal)
CPT/HCPCS: 36415; 82565; 84520; 88304; 88305; 99202

== ENCOUNTER 2025-01-11 14:00 | Outpatient (AMB) | payer MEDICARE, SELFPAY ==
--- NOTE | 2025-01-11 14:07 | A.OFFVIS_ITS ---
Vital Signs 01/11/25 14:09 Height 5 ft 1 in Weight 204 lb BMI 38.5 BP 146/65 H Blood Pressure Location Rt brachial Position Sitting Pulse 94 Intake Visit Reasons: Other specified diseases of anus and rectum Intake Note: Patient referred by pcp Dr. Otero for hemorrhoids. Patient c/o: on and off bleeding. Severe pain from external hemorrhoids. Constipation. Taking otc stool softner (but recently noticed bottle ). Ibuprofen helps with pain for a few hours. Supervisor Photocomposition Required: No Accompanied by: Self / Same As Patient Allergies codeine (Codeine) Allergy (Intermediate, Verified 01/11/25 14:23) VOMITING/RASH ibuprofen (IBUPROFEN) Allergy (Intermediate, Verified 01/11/25 14:23) TACHYCARDIA fenofibrate Allergy (Unknown, Verified 01/11/25 14:23) Unknown hydrocodone (From Vicodin) Allergy (Unknown, Verified 01/11/25 14:23) Unknown tramadol Adverse Reaction (Intermediate, Unverified 01/11/25 14:23) palpitations Medication List - Last Reconciled 01/11/25 by Eligio Bloom MD alprazolam 0.25 mg PO BID-TID PRN 30 days amlodipine 5 mg PO DAILY 90 days aspirin 81 mg PO DAILY 90 days ezetimibe 10 mg PO DAILY 90 days ibuprofen 600 mg PO TID lisinopril 10 mg PO DAILY 90 days metoprolol succinate ER 25 mg PO DAILY omeprazole 20 mg PO DAILY 90 days rosuvastatin 20 mg PO DAILY zolpidem 5 mg PO BEDTIME PRN 30 days HPI HPI Other specified diseases of anus and rectum: Details: [age] year old female referred for a question of hemorrhoids. She says she has a this lump outside her anus for about 6 months now. She says that this has been increasing in size and is tender and painful. She noticed a small amounts of blood periodically with bowel movements. She feels that the mass is ?bigger? when she has a bowel movement. She says that the area is increasingly becoming more painful and tender. She has other medical problems including peripheral vascular disease and has difficulty with ambulation in view of pain. She uses a walker. She smokes heavily. She has coronary artery disease, obesity and hypertension. She also has obstructive sleep apnea. [facility] Medical History Mass of anus Breast cancer screening by mammogram Insomnia Carpal tunnel syndrome Anxiety and depression Osteoarthritis Tobacco abuse Hypercholesterolemia Peripheral arterial disease Obesity (BMI 30-39.9) Gastroesophageal reflux disease Coronary artery disease Hypertension Obstructive sleep apnea Surgical History Status post insertion of drug-eluting stent into right coronary artery for coronary artery disease S/P breast biopsy, left History of knee replacement procedure of left knee History of tubal ligation Family History Father Cancer Mother Stroke Diabetes mellitus HTN (hypertension) Brother No problems noted. Brother No problems noted. Brother No problems noted. Brother No problems noted. Brother No problems noted. Brother No problems noted. Sister No problems noted. Sister No problems noted. Daughter No problems noted. Daughter No problems noted. Daughter No problems noted. Social History Housing: Apartment Alcohol intake: current Alcohol intake frequency: holidays/special occasions only Comment: QOD 5 drinks Patient Tobacco Use Status: Former Tobacco user Tobacco use type: Cigarette Cigarette Packs Per Day: 0.5 Cigarettes Per Day: 1 (3 a week) Years Smoked: started 20 years old e-Cigarette/Vaping Use: Never Used Second Hand Smoke Exposure: Yes service: No Current occupational status: unemployed Cognitive needs: Yes (walker) Hearing needs: No Vision needs: No Review of Systems Const Denies chills, Denies fever(s) and Reports snoring Card Denies chest pain and Reports dyspnea on exertion Resp Reports dyspnea on exertion and Reports snoring GI Denies abdominal pain Denies difficulty voiding Musc Reports abnormal gait, Reports back pain and Reports arthralgias Neuro Reports abnormal gait Physical Exam Vital Signs: Last Vital Signs Pulse 94 01/11/25 14:09 BP 146/65 H 01/11/25 14:09 BMI result Body Mass Index 38.5 Const Other: Using a walker, walks slowly General: no acute distress Resp Effort & Inspection: normal respiratory effort Cardio Rate: regular rate GI Other: Rectal exam shows a large anal mass, on the right side at the anal verge, probably about at least 5 cm, with areas of friability, skin breakdown and oozing Palpation (GI): Soft to palpation, not firm and nontender Assessment & Plan Assessment & Plan (1) Mass of anus: Code(s): K62.89 - Other specified diseases of anus and rectum Category: Medical Plan: She has a large anal mass on the anal verge as described above. This is suspicious for an anal squamous cell carcinoma. I was able to do biopsies by doing wedge sampling of ideas of friability of the mass. I will order for a CAT scan of the abdomen pelvis with IV contrast. I will discuss the findings with her along with the path report She is asking for pain medications so I will prescribe her Percocet. She will need to see me in the office for follow-up. She also has multiple medical problems and appears frail. I told her that the mass did not appear to be a hemorrhoid. Orders: Orders Blood Urea Nitrogen Today K62.89 - Other specified diseases of anus and rectum CT abdomen pelvis w IV con Today K62.89 - Other specified diseases of anus and rectum Surgical Today K62.89 - Other specified diseases of anus and rectum Creatinine Today K62.89 - Other specified diseases of anus and rectum Coding Level of Care Code New Pt Level 4 (83844) Diagnoses Mass of anus K62.89
[2025-01-11 14:09] VITALS: BP 146/65; PULSE 94; BMI 38.5
== END 2025-01-11 15:09 | disposition home or self-care (01) ==
LOC: HO.HGS 14:01
PROVIDERS: PCP Internal Medicine; Visit Provider Surgery
DX: K62.89 Other specified diseases of anus and rectum (principal)
CPT/HCPCS: 99204

== ENCOUNTER 2025-01-24 11:04 | Outpatient (AMB) | payer MEDICARE, SELFPAY ==
--- NOTE | 2025-01-24 11:05 | A.OFFVIS_ITS ---
Vital Signs 01/24/25 11:10 Height 5 ft 1 in Weight 204 lb BMI 38.5 BP 141/63 H Blood Pressure Location Lt brachial Position Sitting Pulse 95 Intake Visit Reasons: anal neoplasm Intake Note: Patient here for for follow up biopsy of anal mass. Oncology consult w/Dr. Dodson 01-25-[address]: 02-12-2025 Exhibit Specialist Required: No Accompanied by: Self / Same As Patient Allergies codeine (Codeine) Allergy (Intermediate, Verified 01/24/25 11:09) VOMITING/RASH ibuprofen (IBUPROFEN) Allergy (Intermediate, Verified 01/24/25 11:09) TACHYCARDIA fenofibrate Allergy (Unknown, Verified 01/24/25 11:09) Unknown hydrocodone (From Vicodin) Allergy (Unknown, Verified 01/24/25 11:09) Unknown tramadol Adverse Reaction (Intermediate, Unverified 01/24/25 11:09) palpitations Medication List - Last Reconciled 01/24/25 by Eligio Bloom MD alprazolam 0.25 mg PO BID-TID PRN 30 days amlodipine 5 mg PO DAILY 90 days aspirin 81 mg PO DAILY 90 days ezetimibe 10 mg PO DAILY 90 days ibuprofen 600 mg PO TID lisinopril 10 mg PO DAILY 90 days metoprolol succinate ER 25 mg PO DAILY omeprazole 20 mg PO DAILY 90 days oxycodone-acetaminophen 5-325 mg (Percocet) 1 tab PO TID PRN rosuvastatin 20 mg PO DAILY zolpidem 5 mg PO BEDTIME PRN 30 days HPI HPI anal neoplasm: Details: She is here for follow-up after biopsy of a large anal mass in the office last 01/11/2025. She says she continues to have pain in the anus and needs pain medications with narcotics. She has difficulty staying seated for long periods of time. Occasionally sees small amounts of blood as well. FORMERLY [facility] Medical History Mass of anus Breast cancer screening by mammogram Insomnia Carpal tunnel syndrome Anxiety and depression Osteoarthritis Tobacco abuse Hypercholesterolemia Peripheral arterial disease Obesity (BMI 30-39.9) Gastroesophageal reflux disease Coronary artery disease Hypertension Obstructive sleep apnea Surgical History Status post insertion of drug-eluting stent into right coronary artery for coronary artery disease S/P breast biopsy, left History of knee replacement procedure of left knee History of tubal ligation Family History Father Cancer Mother Stroke Diabetes mellitus HTN (hypertension) Brother No problems noted. Brother No problems noted. Brother No problems noted. Brother No problems noted. Brother No problems noted. Brother No problems noted. Sister No problems noted. Sister No problems noted. Daughter No problems noted. Daughter No problems noted. Daughter No problems noted. Social History Housing: Apartment Alcohol intake: current Alcohol intake frequency: holidays/special occasions only Comment: QOD 5 drinks Patient Tobacco Use Status: Former Tobacco user Tobacco use type: Cigarette Cigarette Packs Per Day: 0.5 Cigarettes Per Day: 1 (3 a week) Years Smoked: started 20 years old e-Cigarette/Vaping Use: Never Used Second Hand Smoke Exposure: Yes service: No Current occupational status: unemployed Cognitive needs: Yes (walker) Hearing needs: No Vision needs: No Review of Systems Const Denies chills and Denies fever(s) Card Denies chest pain at rest and Reports dyspnea on exertion Resp Reports dyspnea on exertion GI Denies abdominal pain and Reports hematochezia Musc Reports abnormal gait, Reports back pain and Reports arthralgias Neuro Reports abnormal gait Physical Exam Vital Signs: Last Vital Signs Pulse 95 01/24/25 11:10 BP 141/63 H 01/24/25 11:10 BMI result Body Mass Index 38.5 Const Other: Using a walker because of peripheral neuropathy General: comfortable and no acute distress Resp Effort & Inspection: normal respiratory effort Cardio Rate: regular rate Assessment & Plan Assessment & Plan (1) Anal squamous cell carcinoma: Comment: January 2025Squamous cell carcinoma, at least in-situ. Code(s): C21.0 - Malignant neoplasm of anus, unspecified Category: Medical Plan: She has this large anal mass at the verge with biopsies done in the office showing squamous cell carcinoma. We will need to undergo chemotherapy and radiation for this. I have made a referral to the oncologist and she will be seen tomorrow She does have significant pain so I have been prescribed him her narcotics for this. I explained to her the above and she seems to understand the plan well. I told her that she should call the office if she needs any guidance down the line and I can always see her on a p.r.n. basis. Coding Level of Care Code Est Pt Level 3 (20210) Diagnoses Anal squamous cell carcinoma C21.0
[2025-01-24 11:10] VITALS: BP 141/63; PULSE 95; BMI 38.5
== END 2025-01-24 11:21 | disposition home or self-care (01) ==
LOC: HO.HGS 11:04
PROVIDERS: PCP Internal Medicine; Visit Provider Surgery
DX: C21.0 Malignant neoplasm of anus, unspecified (principal)
CPT/HCPCS: 99213

== ENCOUNTER → 2025-01-24 11:04 | Outpatient (BNVA) | payer MEDICARE, SELFPAY | PROVIDERS: PCP Internal Medicine; Visit Provider Surgery | DX: C21.0 Malignant neoplasm of anus, unspecified (principal) | CPT/HCPCS: 99212 ==

== ENCOUNTER → 2025-01-25 11:30 | Outpatient (BNV) | payer MEDICARE, SELFPAY | PROVIDERS: PCP Internal Medicine; Referring Provider Surgery; Visit Provider Internal Medicine | DX: C44.520 Squamous cell carcinoma of anal skin (principal) | CPT/HCPCS: 99205; G2211 ==

== ENCOUNTER 2025-02-12 13:39 | Outpatient (REF) | payer MEDICARE, SELFPAY ==
--- NOTE | ~2025-02-12 | CT_ITS ---
EXAMINATION: CT ABDOMEN PELVIS WITH IV CONTRAST HISTORY: K62.89 - Other specified diseases of anus and rectum COMPARISON: Comparison is made with the prior examination dated 11/21/2024. TECHNIQUE: CT scan of the abdomen and pelvis was performed following administration of 85 mL Omnipaque 350 using standard departmental protocol. Coronal and sagittal reformatted images were generated and reviewed. The patient received oral contrast material. This CT exam was performed with one or more of the following dose reduction techniques: automated exposure control, adjustment of the mA and/or kV according to patient size, use of iterative reconstruction technique. DLP: 615 mGy-cm FINDINGS: LOWER CHEST: The visualized lung bases are clear. There is no pleural effusion. CARDIOVASCULATURE: The heart is normal in size. There is no pericardial effusion. LIVER: The liver is normal in size and contour. No liver mass is identified. The hepatic and portal veins are patent. GALLBLADDER / BILE DUCTS: There is cholelithiasis. There is no intra or extrahepatic biliary ductal dilatation. SPLEEN: The spleen is enlarged. No focal splenic lesion is identified. PANCREAS: The pancreas is unremarkable in appearance. ADRENAL GLANDS: Within normal limits. KIDNEYS/RETROPERITONEUM: No renal calculi are identified. There is no hydronephrosis. There are subcentimeter hypodensities in both kidneys which likely represent cysts but are too small to accurately characterize. LYMPH NODES: No abdominal or pelvic lymphadenopathy. VASCULATURE: The abdominal aorta demonstrates atherosclerotic calcification, but is normal in caliber. MESENTERY/PERITONEUM: No free fluid. No masses. There is no free intraperitoneal gas. STOMACH: The stomach is collapsed, limiting evaluation. SMALL BOWEL: The small bowel is normal in caliber. COLON: There is a soft tissue mass involving the posterior aspect of the lower rectum/anus. The mass extends posteriorly to the gluteal skin to the right of midline. The mass is incompletely imaged, but measures at least 6.6 x 2.9 x 4.4 cm. APPENDIX: Normal. URINARY BLADDER/PELVIC ORGANS: The urinary bladder is unremarkable. The uterus and ovaries are unremarkable. BONES / SOFT TISSUES: There is degenerative disc disease of the spine. CT/CT abdomen pelvis w IV con IMPRESSION: Soft tissue mass involving the posterior aspect of the lower rectum/anus extending to the gluteal skin. The mass measures at least 6.6 x 2.9 x 4.4 cm, but is incompletely imaged. Electronically signed by: Jesús Meyer MD 02/12/2025 03:34 PM EDT RP
[2025-02-12] MEDS: iohexoL 350 MG/ML 100 ML INFUS..BTL 85 ML IV (15:17)
== END 2025-02-12 13:40 | disposition home or self-care (01) ==
LOC: HO.CT 13:39
PROVIDERS: PCP Internal Medicine; Visit Provider Surgery
DX: K62.89 Other specified diseases of anus and rectum (principal)
CPT/HCPCS: 74177; Q9967

== ENCOUNTER → 2025-02-12 13:43 | Outpatient (BNV) | payer MEDICARE, SELFPAY | PROVIDERS: PCP Internal Medicine; Visit Provider Radiology Diagnostic Radiology | DX: K62.89 Other specified diseases of anus and rectum (principal) | CPT/HCPCS: 74177 ==

== ENCOUNTER 2025-04-16 13:00 | Outpatient (AMB) | payer MEDICARE, SELFPAY ==
--- OUTSIDE RECORDS SUMMARY | 2025-04-16 13:03 | XMS_ITS | Clinical Summary ---
Author Organization 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 Hematology Oncology [address] [place] [address] Nikos Keane MD from Last 3 Months Social History Tobacco Use Types Packs/Day Years Used Date Smoking Tobacco: Never Assessed Comments Unknown Sex and Gender Information Value Date Recorded Sex Assigned at Not on file Legal Sex Female 10:58 AM EDT Gender Identity Not on file Sexual Orientation Not on file Plan of Treatment Health Maintenance Due Date Last Done Comments Breast Cancer Screening 1955 Colorectal Cancer Screening: Colonoscopy 1955 Zoster Vaccines (1 of 2) 12/23/2007 Depression Screening 07/05/2024 DTaP,Tdap,and Td Vaccines (2 - Td or Tdap) 11/21/2024 11/21/2014 Falls Risk Assessment 02/05/2025 Hepatitis C Screening 02/05/2025 Medicare Annual Wellness Visit 02/05/2025 Osteoporosis Screening (Bone Density Screening) 02/05/2025 Social Influencers of Health Screening 02/05/2025 COVID-19 Vaccine ( - 2023-2 5 season) 2025 Influenza Vaccine (#1) 2025 04/28/2015 RSV Immunization Adult Patients (1 - 1-dose 75+ series) 2032 Pneumococcal Vaccine: 50+ Years Completed 05/11/2023, 08/31/2017 HIB Vaccines Aged Out No longer eligi ble based on patient's age to complete this topic HPV Vaccines Aged Out No longer eligi ble based on patient's age to complete this topic Hepatitis A Vaccines Aged Out No long er eligible based on patient's age to complete this topic Hepatitis B Vaccines Aged Out No long er eligible based on patient's age to complete this topic IPV Vaccines Aged Out No longer eligi ble based on patient's age to complete this topic MMR Vaccines Aged Out No longer eligi ble based on patient's age to complete this topic Meningococcal ACWY Vaccine Aged Out N o longer eligible based on patient's age to complete this topic Meningococcal B Vaccine Aged Out No l onger eligible based on patient's age to complete this topic RSV Immunization Patients Under 20 months Aged Out No longer eligible b ased on patient's age to complete this topic Varicella Vaccines Aged Out No longer eligible based on patient's age to complete this topic Procedures Procedure Name Priority Date/Time Associated Diagnosis Comments PET CT SKULL TO MID THIGH INITIAL Routine 02/06/2025 1:16 PM EDT Squamous cell carcinoma of anus ([facility] V24, [facility] V28) from Last 3 Months Results * PET CT Skull to Mid Thigh Initial (02/06/2025 1:16 PM EDT) Anatomical Region Laterality Modality Body Radiographic Gisela ging 02/12/2025 5:26 AM EDT Impressions 02/12/2025 6:00 AM EDT 1. FDG avid anal mass in keeping with primary malignancy 2. FDG avid left-sided mesorectal lymph node suspicious for metastatic disease 3. Nonspecific FDG activity within the cecum and ascending colon and nonspecific gastric wall thickening. Correlation with direct visualization is suggested. 4. Bilateral FDG avid inguinal lymph nodes either metastatic or reactive in etiology. Please note: The CT was acquired at a low radiation dose settings. The images are of nondiagnostic quality and used solely for purposes of attenuation correction and slice localization for the PET scan. If a diagnostic CT study is desired it must be ordered separately. -------- FINAL REPORT -------- Dictated By: Paige Soto Dictated Date: 02/12/2025 05:26 ET Assigned Physician: Paige Soto Reviewed and Electronically Signed By: Paige Soto Signed Date: 02/12/2025 06:00 ET Workstation ID: [id number] Transcribed By: Self Edit Transcribed Date: 02/12/2025 05:26 ET Narrative 02/12/2025 6:00 AM EDT INDICATION: ANAL CANCER TECHNIQUE: FDG PET-CT imaging was performed from the skull bases through the thighs in a single acquisition with data set reconstructed in axial, coronal, and sagittal planes at the computer workstation with fused data from both the PET imaging study and attenuation correction CT. The CT portion of the examination was done strictly for attenuation correction and is not a true diagnostic CT examination. Enteric contrast was administered. DLP: 1279 mGy-cm Radiopharmaceutical: 11.5 mCi of F-18 FDG IV. Blood glucose: 119 mg/dl. COMPARISON: None. FINDINGS: HEAD AND NECK: No abnormal FDG activity. Nodule in the right thyroid lobe without significant FDG activity. THORAX: No abnormal FDG activity. Thoracic aortic and coronary artery calcifications. Contrast within the esophagus which may represent an element of reflux. Emphysematous changes within the lungs. Tiny sub-5 mm pulmonary nodules without significant FDG activity due to small size. ABDOMEN/PELVIS: FDG avid anal mass SUV max 23.7. FDG avid mesorectal lymph node on the left measuring approximately 7 mm in short axis diameter SUV max 3. Nonenlarged bilateral inguinal lymph nodes SUV max 3.0 on the left and 4.6 on the right. Nonspecific asymmetric activity involving the cecum and ascending colon extending to the hepatic flexure SUV max 12.5. Nonspecific thickening of the gastric fundal and body wall SUV max 4.5. No significant FDG avid abdominal lymphadenopathy. Gastrohepatic lymph node SUV max 1.8. Portacaval lymph nodes SUV max 2.8. Retroperitoneal lymph nodes measuring up to SUV Max 2.1. Cholelithiasis. Diverticulosis. MUSCULOSKELETAL: Asymmetric activity in the left adductor compartment of the proximal thigh SUV Max 8.6 which may correspond to muscle strain and/or tear. Nonspecific muscle uptake as well as uptake along the paraspinal musculature. Procedure Note Paige Soto MD - 02/12/2025 INDICATION: ANAL CANCER TECHNIQUE: FDG PET-CT imaging was performed from the skull bases throughthe thighs in a single acquisition with data set reconstructed in axial,coronal, and sagittal planes at the computer workstation with fused datafrom both the PET imaging study and attenuation correction CT. The CTportion of the examination was done strictly for attenuation correctionand is not a true diagnostic CT examination. Enteric contrast wasadministered. DLP: 1279 mGy-cm Radiopharmaceutical: 11.5 mCi of F-18 FDG IV. Blood glucose: 119 mg/dl. COMPARISON: None. FINDINGS: HEAD AND NECK: No abnormal FDG activity. Nodule in the right thyroid lobewithout significant FDG activity. THORAX: No abnormal FDG activity. Thoracic aortic and coronary arterycalcifications. Contrast within the esophagus which may represent anelement of reflux. Emphysematous changes within the lungs. Tiny sub-5 mmpulmonary nodules without significant FDG activity due to small size. ABDOMEN/PELVIS: FDG avid anal mass SUV max 23.7. FDG avid mesorectal lymph node on the left measuring approximately 7 mm inshort axis diameter SUV max 3. Nonenlarged bilateral inguinal lymph nodesSUV max 3.0 on the left and 4.6 on the right. Nonspecific asymmetric activity involving the cecum and ascending colonextending to the hepatic flexure SUV max 12.5. Nonspecific thickening ofthe gastric fundal and body wall SUV max 4.5. No significant FDG avid abdominal lymphadenopathy. Gastrohepatic lymphnode SUV max 1.8. Portacaval lymph nodes SUV max 2.8. Retroperitoneallymph nodes measuring up to SUV Max 2.1. Cholelithiasis. Diverticulosis. MUSCULOSKELETAL: Asymmetric activity in the left adductor compartment of the proximal thighSUV Max 8.6 which may correspond to muscle strain and/or tear. Nonspecific muscle uptake as well as uptake along the paraspinalmusculature. IMPRESSION: 1. FDG avid anal mass in keeping with primary malignancy 2. FDG avid left-sided mesorectal lymph node suspicious for metastaticdisease 3. Nonspecific FDG activity within the cecum and ascending colon andnonspecific gastric wall thickening. Correlation with directvisualization is suggested. 4. Bilateral FDG avid inguinal lymph nodes either metastatic or reactivein etiology. Please note: The CT was acquired at a low radiation dose settings. The images are ofnondiagnostic quality and used solely for purposes of attenuationcorrection and slice localization for the PET scan. If a diagnostic CTstudy is desired it must be ordered separately. -------- FINAL REPORT -------- Dictated By: Paige Soto Dictated Date: 02/12/2025 05:26 ET Assigned Physician: Paige Soto Reviewed and Electronically Signed By: Paige Soto Signed Date: 02/12/2025 06:00 ET Workstation ID: [id number] Transcribed By: Self Edit Transcribed Date: 02/12/2025 05:26 ET Amalia Dodson MD IMG NM PROCEDURES Final Result from Last 3 Months Insurance [employer] MEDICARE
--- OUTSIDE RECORDS SUMMARY | 2025-04-16 13:03 | XMS_ITS | Encounter Summary ---
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 Not on shelby e 02/13/2025 Are you concerned about learning? Not on file 02/13/2025 No 02/13/2025 No 02/13/2025 Digital Access Answer Date Recorded No 02/13/2025 No 02/13/2025 Reliable internet access at home? Not on file 02/13/2025 Device with a working camera? Not on file Comments Unknown Sex and Gender Information Value Date Recorded Sex Assigned at Not on file Legal Sex Female 3:19 PM EDT Gender Identity Not on file Sexual Orientation Not on file documented as of this encounter Plan of Treatment Upcoming Encounters Date Type Department Care Team (Late Contact Info) Description 04/17/2025 3:00 PM EDT Treatment [facility] Rad Onc [address] [place] [address] Becky Lisa MD [address] [place] [address] [email or web address] 04/17/2025 3:05 PM EDT Office Visit [facility] Rad Onc [address] [place] [address] Becky Lisa MD [address] [place] [phone] [email or web address] 04/18/2025 3:00 PM EDT Treatment [facility] Rad Onc [address] [place] [address] Becky Lisa MD [address] [place] [phone] [email or web address] 04/19/2025 3:00 PM EDT Treatment [facility] Rad Onc [address] [place] [address] Becky Lisa MD [address] [place] [phone] [email or web address] 04/19/2025 3:20 PM EDT Procedure visit [facility] Rad Onc [address] [place] [address] Becky Lisa MD [address] [place] [phone] [email or web address] 04/20/2025 3:10 PM EDT Treatment [facility] Rad Onc [address] [place] [address] Becky Lisa MD [address] [place] [phone] [email or web address] 04/23/2025 3:00 PM EDT Treatment [facility] Rad Onc [address] [place] [address] Becky Lisa MD [address] [place] [phone] [email or web address] 04/24/2025 3:00 PM EDT Treatment [facility] Rad Onc [address] [place] [address] Becky Lisa MD [address] [place] [phone] [email or web address] 04/25/2025 3:00 PM EDT Treatment [facility] Rad Onc [address] [place] [address] Becky Lisa MD [address] [place] [phone] [email or web address] 04/26/2025 2:50 PM EDT Treatment [facility] Rad Onc [address] [place] [address] Becky Lisa MD [address] [place] [phone] [email or web address] 04/26/2025 3:10 PM EDT Procedure visit [facility] Rad Onc [address] [place] [address] Becky Lisa MD [address] [place] [phone] [email or web address] 04/27/2025 3:00 PM EDT Treatment [facility] Rad Onc [address] [place] [address] Becky Lisa MD [address] [place] [phone] [email or web address] 04/30/2025 3:00 PM EDT Treatment [facility] Rad Onc [address] [place] [address] Becky Lisa MD [address] [place] [phone] [email or web address] 05/01/2025 3:00 PM EDT Treatment [facility] Rad Onc [address] [place] [address] Becky Lisa MD [address] [place] [address] [phone] [email or web address] 05/02/2025 3:00 PM EDT Treatment [facility] Rad Onc [address] [place] [address]24 Becky Lisa MD [address] [place] [address] [phone] [email or web address] 05/03/2025 3:00 PM EDT Treatment [facility] Rad Onc [address] [place] [address] Becky Lisa MD [address] [place] [address] [phone] [email or web address] 05/03/2025 3:20 PM EDT Procedure visit [facility] Rad Onc [address] [place] [address] Becky Lisa MD [address] [place] [address] [phone] [email or web address] 05/04/2025 3:00 PM EDT Treatment [facility] Rad Onc [address] [place] [address] Becky Lisa MD [address] [place] [phone] [email or web address] 05/07/2025 3:00 PM EST Treatment [facility] Rad Onc [address] [place] [address] Becky Lisa MD [address] [place] [address] [phone] [email or web address] 05/08/2025 2:40 PM EST Treatment [facility] Rad Onc [address] [place] [address] Becky Lisa MD [address] [place] [address] [phone] [email or web address] 05/09/2025 2:40 PM EST Treatment [facility] Rad Onc [address] [place] [address] Becky Lisa MD [address] [place] [phone] [email or web address] 05/10/2025 2:40 PM EST Treatment [facility] Rad Onc [address] [place] [address] Becky Lisa MD [address] [place] [phone] [email or web address] 05/10/2025 3:20 PM EST Procedure visit [facility] Rad Onc [address] [place] [address]45 Becky Lisa MD [address] [place] [phone] [email or web address] 05/11/2025 2:40 PM EST Treatment [facility] Rad Onc [address] [place] [address] 30780 Becky Lisa MD [address] [place] [address] [phone] [email or web address] 05/14/2025 2:40 PM EST Treatment [facility] Rad Onc [address] [place] [address] Bekcy Lisa MD [address] [place] [address] [phone] [email or web address] 05/15/2025 2:40 PM EST Treatment [facility] Rad Onc [address] [place] [address] Becky Lisa MD [address] [place] [address] [phone] [email or web address] 05/16/2025 2:50 PM EST Treatment [facility] Rad Onc [address] [place] [address] 49847 Becky Lisa MD [address] [place] [address] [phone] [email or web address] 05/17/2025 2:40 PM EST Treatment [facility] Rad Onc [address] [place] [address] 20943 Becky Lisa MD [address] [place] [address] [phone] [email or web address] 05/17/2025 3:20 PM EST Procedure visit [facility] Rad Onc [address] [place] [address]68 Becky Lisa MD [address] [place] [address] [phone] [email or web address] 05/18/2025 2:40 PM EST Treatment [facility] Rad Onc [address] [place] [address]257 Becky Lisa MD [address] [place] [address] [phone] [email or web address] 05/21/2025 2:40 PM EST Treatment [facility] Rad Onc [address] [place] [address]236 Becky Lisa MD [address] [place] [phone] [email or web address] 05/22/2025 2:40 PM EST Treatment [facility] Rad Onc [address] [place] [address]6426 Becky Lisa MD [address] [place] [address] [phone] [email or web address] 05/23/2025 2:40 PM EST Treatment [facility] Rad Onc [address] [place] [address] 85458 Becky Lisa MD [address] [place] [address] [phone] [email or web address] 05/24/2025 2:40 PM EST Treatment [facility] Rad Onc [address] [place] [address] 95650 Becky Lisa MD [address] [place] [address] [phone] [email or web address] 05/24/2025 3:20 PM EST Procedure visit [facility] Rad Onc [address] [place] [address] 98687 Becky Lisa MD [address] [place] [address] [phone] [email or web address] 05/25/2025 2:40 PM EST Treatment [facility] Rad Onc [address] [place] [address] 07412 Becky Lisa MD [address] [place] [address] [phone] [email or web address] 05/28/2025 2:40 PM EST Treatment [facility] Rad Onc [address] [place] [address] 85398 Becky Lisa MD [address] [place] [address] [phone] [email or web address] documented as of this encounter Visit Diagnoses Not on filedocumented in this encounter 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 It is not the complete legal health record.[facility]
--- OUTSIDE RECORDS SUMMARY | 2025-04-16 13:03 | XMS_ITS | Clinical Summary ---
Author Organization [facility] Address [address] [place] [phone] Phone Care Team Providers Care Rehabilitation Inspector Name Role Phone Katlin Otero MD Primary Care Provider [phone] Allergies Active Allergy Reactions Criticality Noted Date Comments Codeine 03/16/2025 Fenofibrate 03/16/2025 Hydrocodone-Ibuprofen 03/16/2025 Hydrocodone alone Ibuprofen 03/16/2025 Tramadol 03/16/2025 Medications ALPRAZolam (XANAX) 0.25 MG tablet TAKE ONE TABLET (0.25 MG) BY MOUTH 2-3 TIMES DAILY NEEDED FOR SLEEP FOR 30 DAYS 03/03/2025 Active amLODIPine (NORVASC) 5 MG tablet Take 1 tablet by mouth every morning. 02/23/2025 Active aspirin 81 MG EC tablet Take 1 tablet by mouth every morning. 02/23/2025 Active capecitabine (XELODA) 500 MG tablet 02/21/2025 Active ezetimibe (ZETIA) 10 mg tablet Take 1 tablet by mouth every morning. 02/23/2025 Active lisinopril (PRINIVIL,ZESTR IL) 10 MG tablet Take 1 tablet by mouth every morning. 02/23/2025 Active metoprolol succinate (TOPROL-XL) 25 MG 24 hr tablet Take 1 tablet by mouth every morning. 02/23/2025 Active omeprazole (PRILOSEC) 20 MG capsule Take 1 capsule by mouth every morning. 02/23/2025 Active oxyCODONE 5 MG immediate release tablet take 1 tablet orally every 8 hours as needed for pain 02/19/2025 Active rosuvastatin (CRESTOR) 20 MG tablet Take 1 tablet by mouth every morning. 01/24/2025 Active zolpidem (AMBIEN) 5 MG tablet TAKE ONE TABLET (5 MG) BY MOUTH AT BEDTIME NEEDED FOR INSOMNIA FOR 30 DAYS 12/13/2024 Active Active Problems Patient Care Coordination No te Formatting of this note migh t be different from the original. Letha's transportation is through [employer] : ) and Letha's Feedback ID ([id number]). Problem Noted Date Diagnosed Date Anal cancer 03/16/2025 Cancer Staging:Clinical stage from 03/16/2025:Stage IIIA(cT3, cN1a, cM0) - Signed by Becky Lisa MD on 03/16/2025 Encounters Date Type Department Care Team Description 04/10/2025 Procedure Pass [facility] Cardiovascular And Interventional Radiology [address] [place] [id number] 04/09/2025 3:06 PM EDT - 04/09/2025 11:59 PM EDT Hospital Encounter [address] [address] Becky Lisa MD Discharge Disposition: Home or Self Care 04/09/2025 Telephone [facility] Onc [address] [place] [address] Sherri Del Valle RN 04/06/2025 Telephone [facility] Onc [address] [place] [address] Becky iLsa MD 04/06/2025 Telephone [facility] at [address] [address] Angelique Mcneill LICSW 04/06/2025 Telephone [facility] at [address] [address] Carolyn Smith, RONALD 04/05/2025 Telephone [facility] at [address] [address] Angelique Mcneill LICSW 04/04/2025 Telephone [facility] at [address] [address] [employer], RAILROAD CAR CLEANING SUPERVISOR 04/03/2025 Telephone [facility] at [address] [address] Angelique Mcneill, RAILROAD CAR CLEANING SUPERVISOR transportation 04/02/2025 Telephone [facility] At [address] [address] Sherri Del Valle RN 03/29/2025 1:00 PM EDT Office Visit [facility] At [address] [address] Becky Lisa MD Anal cancer (Primary Dx) 03/29/2025 Telephone [facility] At [address] [address] Becky Lisa MD PreAut 03/29/2025 Documentation [facility] At [address] [address] Sherri Del Valle RN 03/27/2025 Telephone [facility] at [address] [address] Summer Mcneille, RAILRO[employer] CAR CLEANING SUPERVISOR confirming ride 03/23/2025 Telephone [facility] at [address] [address] Fanta Mcneillanne, RAILROAD CAR CLEANING SUPERVISOR transportation 03/23/2025 Telephone [facility] At [address] [address] Becky Lisa MD 03/19/2025 Telephone [facility] at [address] [address] Fanta Mcneillanne, RAILROAD CAR CLEANING SUPERVISOR transportation and insurance 03/16/2025 3:00 PM EDT Social Work [facility] at [address] [address] Becky Lisa MD 03/16/2025 1:00 PM EDT Office Visit [facility] At [address] [address] Becky Lisa MD Anal cancer (Primary Dx) 03/16/2025 Procedure Pass [facility] [address] [place] [address] 03/16/2025 Ancillary Orders [facility] [address] [place] [address] Castro Erazo MD 03/01/2025 Ancillary Orders [facility] [address] [place] [address] Unknown, MD Castro 02/12/2025 - 02/12/2025 11:59 PM EDT Hospital Encounter [facility] [address] [place] [address] Unknown, MD Castro Discharge Disposition: Home or Self Care 02/06/2025 - 02/06/2025 11:59 PM EDT Hospital Encounter [facility] [address] [place] [address] Unknown, Castro, MD Discharge Disposition: Home or Self Care from Last 3 Months Family History Medical History Relation Comments Cancer Sister exercise specialist Relation Status Comments Sister Social History Tobacco Use Types Packs/Day Years [...] on file Sexual Orientation Not on file Last Filed Vital Signs Vital Sign Reading Time Taken Comments Blood Pressure 120/71 03/16/2025 1:08 PM EDT Pulse 98 03/16/2025 1:08 PM EDT Temperature 36.9 C (98.4 F) 03/16/2025 1:08 PM EDT Respiratory Rate 18 03/16/2025 1:08 PM EDT Oxygen Saturation 97% 03/16/2025 1:08 PM EDT Inhaled Oxygen Concentration - - Weight 63.5 kg (140 lb) 03/31/2025 10:36 AM EDT Height 152.4 cm (5') 03/31/2025 10:36 AM EDT Body Mass Index 27.34 03/31/2025 10:36 AM EDT Plan of Treatment Upcoming Encounters Date Type Department Care Team (Late st Contact Info) Description 04/17/2025 3:00 PM EDT Treatment [facility] Rad Onc [address] [place] [address] Becky Lisa MD [address] [place] [phone] [email or web address] 04/17/2025 3:05 PM EDT Office Visit [facility] Rad Onc [address] [place] [address] Becky Lisa MD [address] [place] [address] [email or web address] 04/18/2025 3:00 PM EDT Treatment [facility] Rad Onc [address] [place] [address] Becky Lisa MD [address] [place] [address] [email or web address] 04/19/2025 3:00 PM EDT Treatment [facility] Rad Onc [address] [place] [address] Becky Lisa MD [address] [place] [address] [email or web address] 04/19/2025 3:20 PM EDT Procedure visit [facility] Rad Onc [address] [place] [address] Becky Lisa MD [address] [place] [address] [email or web address] 04/20/2025 3:10 PM EDT Treatment [facility] Rad Onc [address] [place] [address] Becky Lisa MD [address] [place] [address] [email or web address] 04/23/2025 3:00 PM EDT Treatment [facility] Rad Onc [address] [place] [address] Becky Lisa MD [address] [place] [address] [email or web address] 04/24/2025 3:00 PM EDT Treatment [facility] Rad Onc [address] [place] [address] Becky Lisa MD [address] [place] [phone] [email or web address] 04/25/2025 3:00 PM EDT Treatment [facility] Rad Onc [address] [place] [address] Becky Lisa MD [address] [place] [address] [email or web address] 04/26/2025 2:50 PM EDT Treatment [facility] Rad Onc [address] [place] [address] Becky Lisa MD [address] [place] [address] [email or web address] 04/26/2025 3:10 PM EDT Procedure visit [facility] Rad Onc [address] [place] [address] Becky Lisa MD [address] [place] [address] [email or web address] 04/27/2025 3:00 PM EDT Treatment [facility] Rad Onc [address] [place] [address] Becky Lisa MD [address] [place] [address] [email or web address] 04/30/2025 3:00 PM EDT Treatment [facility] Rad Onc [address] [place] [address] Becky Lisa MD [address] [place] [address] [email or web address] 05/01/2025 3:00 PM EDT Treatment [facility] Rad Onc [address] [place] [address] Becky Lisa MD [address] [place] [phone] [email or web address] 05/02/2025 3:00 PM EDT Treatment [facility] Rad Onc [address] [place] [address] Becky Lisa MD [address] [place] [phone] [email or web address] 05/03/2025 3:00 PM EDT Treatment [facility] Rad Onc [address] [place] [address] Becky Lisa MD [address] [place] [address] [email or web address] 05/03/2025 3:20 PM EDT Procedure visit [facility] Rad Onc [address] [place] [address] Becky Lisa MD [address] [place] [address] [email or web address] 05/04/2025 3:00 PM EDT Treatment [facility] Rad Onc [address] [place] [address] Becky Lisa MD [address] [place] [address] [email or web address] 05/07/2025 3:00 PM EST Treatment [facility] Rad Onc [address] [place] [address] Becky Lisa MD [address] [place] [address] [email or web address] 05/08/2025 2:40 PM EST Treatment [facility] Rad Onc [address] [place] [address] Becky Lisa MD [address] [place] [address] [email or web address] 05/09/2025 2:40 PM EST Treatment [facility] Rad Onc [address] [place] [address] Becky Lisa MD [address] [place] [address] [email or web address] 05/10/2025 2:40 PM EST Treatment [facility] Rad Onc [address] [place] [address] Becky Lisa MD [address] [place] [address] [email or web address] 05/10/2025 3:20 PM EST Procedure visit [facility] Rad Onc [address] [place] [address] Becky Lisa MD [address] [place] [address] [email or web address] 05/11/2025 2:40 PM EST Treatment [facility] At [facility] Rad Onc [address] [place] [address] Becky Lias MD [address] [place] [address] [email or web address] 05/14/2025 2:40 PM EST Treatment [facility] Rad Onc [address] [place] [address] Becky Lisa MD [address] [place] [phone] [email or web address] 05/15/2025 2:40 PM EST Treatment [facility] Rad Onc [address] [place] [address] Becky Lisa MD [address] [place] [address] [email or web address] 05/16/2025 2:50 PM EST Treatment [facility] Rad Onc [address] [place] [address] Becky Lisa MD [address] [place] [address] [email or web address] 05/17/2025 2:40 PM EST Treatment [facility] Rad Onc [address] [place] [address] Becky Lisa MD [address] [place] [address] [email or web address] 05/17/2025 3:20 PM EST Procedure visit [facility] Rad Onc [address] [place] [address] Becky Lisa MD [address] [place] [address] [email or web address] 05/18/2025 2:40 PM EST Treatment [facility] Rad Onc [address] [place] [address] Becky Lisa MD [address] [place] [address] [email or web address] 05/21/2025 2:40 PM EST Treatment [facility] Rad Onc [address] [place] [address] Becky Lisa MD [address] [place] [address] [email or web address] 05/22/2025 2:40 PM EST Treatment [facility] Rad Onc [address] [place] [address] Becky Lisa MD [address] [place] [address] [email or web address] 05/23/2025 2:40 PM EST Treatment [facility] Rad Onc [address] [place] [address] Becky Lisa MD [address] [place] [address] [email or web address] 05/24/2025 2:40 PM EST Treatment [facility] Rad Onc [address] [place] [address] Becky Lisa MD [address] [place] [address] [email or web address] 05/24/2025 3:20 PM EST Procedure visit [facility] Rad Onc [address] [place] [address] Becky Lisa MD [address] [place] [address] [email or web address] 05/25/2025 2:40 PM EST Treatment [facility] Rad Onc [address] [place] [address] Becky Lisa MD [address] [place] [address] [email or web address] 05/28/2025 2:40 PM EST Treatment [facility] Rad Onc [address] [place] [address] Becky Lisa MD [address] [place] [address] [email or web address] Health Maintenance Due Date Last Done Comments CREATININE LEVEL 1957 LIPID PANEL 1957 POTASSIUM LEVEL 1957 DEPRESSION SCREENING 1969 SMOKING Hx and SMOKELESS TOBACCO SCREENING 1970 HEPATITIS C SCREENING 12/23/1975 ZOSTER VACCINES (1 of 2) 1976 SCREENING FOR DIABETES 1992 MAMMOGRAM 1997 COLOGUARD 2002 COLONOSCOPY 2002 COLORECTAL CANCER SCREENING 2002 FIT TEST 2002 FOBT 2002 SIGMOIDOSCOPY 2002 VIRTUAL COLONOSCOPY 2002 OSTEOPOROSIS SCREENING INITI AL (ONE-TIME) 2022 Adult Td,Tdap Booster 11/21/2024 11/21/2014 INFLUENZA VACCINE (#1) 2025 04/28/2015 COVID-19 VACCINE ( - 2024-2 6 season) 2025 RSV VACCINE (1 - 1-dose 75+ series) 2032 PNEUMOCOCCAL VACCINES (50+ years) Completed 05/11/2023, 08/31/2017 HEPATITIS A VACCINES Aged Out No long er eligible based on patient's age to complete this topic HIB VACCINES Aged Out No longer eligi ble based on patient's age to complete this topic MENINGOCOCCAL VACCINES (ACWY) Aged Out No longer eligible based on patient's age to complete this topic MENINGOCOCCAL VACCINES (B) Aged Out N o longer eligible based on patient's age to complete this topic Medical Devices Not on file Procedures Procedure Name Priority Date/Time Associated Diagnosis Comments MRI PELVIS WITHOUT CONTRAST Routine 04/09/2025 5:02 PM EDT Anal cancer CT ABDOMEN/PELVIS OUTSIDE (NO INTERPRETATION) Routine 02/12/2025 12:00 AM EDT NM PET WHOLE BODY OUTSIDE (NO INTERPRETATION) Routine 02/06/2025 12:00 AM EDT from Last 3 Months Results * MRI PELVIS WITHOUT CONTRAST (04/09/2025 5:02 PM EDT) Anatomical Region Laterality Modality Pelvis Magnetic Resonan ce 04/12/2025 12:4 0 PM EDT Impressions 04/12/2025 12:49 PM EDT Incomplete study; as the patient was unable to tolerate the examination due to severe pain. 1. 6.5 cm anal mass, extending into the gluteal cleft. Narrative 04/12/2025 12:49 PM EDT MRI PELVIS WITHOUT CONTRAST Referring clinician's provided indication for this examination in Epic: * Anal carcinoma, initial workup; PET CT done at [facility] with large anal mass, mesorectal LN and indeterminate bilateral inguinal LNs; Anticipate tx with chemoRT TECHNIQUE: Multiplanar MR imaging of the pelvis was performed without contrast. Unfortunately, due to severe pain, patient was unable to tolerate the study due to severe pain. Only localizer sequence and a single large sagittal T2-weighted sequence were able to be obtained. COMPARISON: None ABSENCE OF INTRAVENOUS CONTRAST DECREASES SENSITIVITY FOR DETECTION OF FOCAL LESIONS AND VASCULAR PATHOLOGY. FINDINGS: As noted above, the patient was unable to complete the study. Only a single sagittal T2-weighted sequence was acquired. 6.5 x 4.7 cm (oblique craniocaudal by oblique AP dimensions) renal mass, involving the right paramidline anal canal into the gluteal cleft. On this single limited sequence, the urinary bladder, urethra, uterus and vagina appear uninvolved. These images are insufficient to evaluate adenopathy. 11 mm intramural uterine fibroid. No large adnexal mass. Unremarkable bladder. Colonic diverticulosis. No intrapelvic fluid. Procedure Note Rupesh Gonzalez MD - 04/12/2025 MRI PELVIS WITHOUT CONTRAST Referring clinician's provided indication for this examination in Epic: *Anal carcinoma, initial workup; PET CT done at [facility] with large anal mass,mesorectal LN and indeterminate bilateral inguinal LNs; Anticipate tx withchemoRT TECHNIQUE: Multiplanar MR imaging of the pelvis was performed withoutcontrast. Unfortunately, due to severe pain, patient was unable to tolerate thestudy due to severe pain. Only localizer sequence and a single largesagittal T2-weighted sequence were able to be obtained. COMPARISON: None ABSENCE OF INTRAVENOUS CONTRAST DECREASES SENSITIVITY FOR DETECTION OFFOCAL LESIONS AND VASCULAR PATHOLOGY. FINDINGS: As noted above, the patient was unable to complete the study. Only asingle sagittal T2-weighted sequence was acquired. 6.5 x 4.7 cm (oblique craniocaudal by oblique AP dimensions) renal mass,involving the right paramidline anal canal into the gluteal cleft. On thissingle limited sequence, the urinary bladder, urethra, uterus and vaginaappear uninvolved. These images are insufficient to evaluate adenopathy. 11 mm intramural uterine fibroid. No large adnexal mass. Unremarkable bladder. Colonic diverticulosis. No intrapelvic fluid. IMPRESSION: Incomplete study; as the patient was unable to tolerate the examinationdue to severe pain. 1. 6.5 cm anal mass, extending into the gluteal cleft. us Becky Lisa MD IMG MR PELVIS F inal Result * CT Abdomen/Pelvis Outside (No Interpretation) (02/12/2025 12:00 AM EDT) Narrative Record, 03/16/2025 11:34 AM EDT This study is for PACS storage only and not for interpretation. Procedure Note Record, 03/16/2025 This study is for PACS storage only and not for interpretation. us Unknown Unknown MD IMG OUTSIDE IMAGING W/OUT INT ERPRETATION Final Result * NM PET Whole Body Outside (No Interpretation) (02/06/2025 12:00 AM EDT) Narrative Record, 03/01/2025 4:23 PM EDT This study is for PACS storage only and not for interpretation. Procedure Note Record, 03/01/2025 This study is for PACS storage only and not for interpretation. us Unknown Unknown MD IMG OUTSIDE IMAGING W/OUT INT ERPRETATION Final Result from Last 3 Months Insurance [facility] MEDICARE REPLACEMENT [facility] MEDICARE PART A & B [facility] REPLACEMENT [facility] MEDICARE PART A & B [facility] B [facility] MED[facility]PLACEMENT [place] MEDICARE PART A & [place] [address] [address] [address] MEDICARE REPLACEMENT [place] MEDICARE PART A & B [facility] MEDICARE REPLACEMENT [facility] MEDICARE PART A & B Care Teams Rehabilitation Inspector Relationship Specialty Start Date End Date Katlin Otero MD [address] [place] [address] PCP - General Internal Medicine 02/13/25 Additional Source Comments The information contained in this document represents components of the legal health record. It is not the complete legal health record.[facility]
--- OUTSIDE RECORDS SUMMARY | 2025-04-16 13:03 | XMS_ITS | Encounter Summary ---
Author Organization [facility] Address [address] [place] [phone] Phone Care Team Providers Care Warehouse Shipping Clerk Name Role Phone Katlin Otero MD Primary Care Provider [phone] Encounter Details Date Type Department Care Team (Late Contact Info) Description 03/16/2025 Procedure Pass [facility], [address] [address] Social History Tobacco Use Types Packs/Day Years [...] Info) Description 04/17/2025 3:00 PM EDT Treatment [facility] [address] [place] [address] [phone] Becky Lisa MD [address] [place] [address] [email or web address] 04/17/2025 3:05 PM EDT Office Visit [facility] [address] [place] [address] 15065 Becky Lisa MD [address] [place] [address] [phone] [email or web address] 04/18/2025 3:00 PM EDT Treatment [facility] [address] [place] [address] 15579 Becky Lisa MD [address] [place] [address] 46570 [email or web address] 04/19/2025 3:00 PM EDT Treatment [facility] [address] [place] [address] 67914 Becky Lisa MD [address] [place] [address] [phone] [email or web address] 04/19/2025 3:20 PM EDT Procedure visit [facility] [address] [place] [address] 61548 Becky Lisa MD [address] [place] [address] 9[address] [email or web address] 04/20/2025 3:10 PM EDT Treatment [facility] Onc [address] [place] [address] 34304 Becky Lisa MD [address] [place] [address] [phone] [email or web address] 04/23/2025 3:00 PM EDT Treatment [facility] Onc [address] [place] [address] Becky Lisa MD [address] [place] [address] [phone] [email or web address] 04/24/2025 3:00 PM EDT Treatment [facility] Onc [address] [place] [address] 68210 Becky Lisa MD [address] [place] [address] 60090 [email or web address] 04/25/2025 3:00 PM EDT Treatment [facility] Onc [address] [place] [address] 26654 Becky Lisa MD [address] [place] [address] 61638 [email or web address] 04/26/2025 2:50 PM EDT Treatment [facility] Onc [address] [place] [address] 31916 Becky Lisa MD [address] [place] [address] [phone] [email or web address] 04/26/2025 3:10 PM EDT Procedure visit [facility] Onc [address] [place] [address] 11845 Becky Lisa MD [address] [place] [address] [phone] [email or web address] 04/27/2025 3:00 PM EDT Treatment [facility] Onc [address] [place] [address] Becky Lisa MD [address] [place] [address] 916[address] [email or web address] 04/30/2025 3:00 PM EDT Treatment [facility] Onc [address] [place] [address] Becky Lisa MD [address] [place] [address] 70719 [email or web address] 05/01/2025 3:00 PM EDT Treatment [facility] Onc [address] [place] [address] 24106 Becky Lisa MD [address] [place] [address] 55072 [email or web address] 05/02/2025 3:00 PM EDT Treatment [facility] Onc [address] [place] [address] 91179 Becky Lisa MD [address] [place] [address] 18417 [email or web address] 05/03/2025 3:00 PM EDT Treatment [facility] Onc [address] [place] [address] 96214 Becky Lisa MD [address] [place] [address] [phone] [email or web address] 05/03/2025 3:20 PM EDT Procedure visit [facility] Onc [address] [place] [address] 82252 Becky Lisa MD [address] [place] [address] [phone] [email or web address] 05/04/2025 3:00 PM EDT Treatment [facility] Onc [address] [place] [address] 01122 Becky Lisa MD [address] [place] [address] 50014 [email or web address] 05/07/2025 3:00 PM EST Treatment [facility] Onc [address] [place] [address] 099[address] Becky Lisa MD [address] [place] [address] 52876 [email or web address] 05/08/2025 2:40 PM EST Treatment [facility] Onc [address] [place] [address] 15105 Becky Lisa MD [address] [place] [address] 47821 [email or web address] 05/09/2025 2:40 PM EST Treatment [facility] Onc [address] [place] [address] 54198 Becky Lisa MD [address] [place] [address] 11190 [email or web address] 05/10/2025 2:40 PM EST Treatment [facility] Onc [address] [place] [address] 70522 Becky Lisa MD [address] [place] [address] 76627 [email or web address] 05/10/2025 3:20 PM EST Procedure visit [facility] Onc [address] [place] [address] 75345 Becky Lisa MD [address] [place] [address] 79520 [email or web address] 05/11/2025 2:40 PM EST Treatment [facility] Onc [address] [place] [address] 56998 Becky Lisa MD [address] [place] [address] 90011 [email or web address] 05/14/2025 2:40 PM EST Treatment [facility] Onc [address] [place] [address] 53435 Becky Lisa MD [address] [place] [address] 06626 [email or web address] 05/15/2025 2:40 PM EST Treatment [facility] Onc [address] [place] [address] 34253 Becky Lisa MD [address] [place] [address] 10429 [email or web address] 05/16/2025 2:50 PM EST Treatment [facility] Rad Onc [address] [place] [address] 37[address] Becky Lisa MD [address] [place] [address] 22161 [email or web address] 05/17/2025 2:40 PM EST Treatment [facility] Rad Onc [address] [place] [address] Becky Lisa MD [address] [place] [address] 85584 [email or web address] 05/17/2025 3:20 PM EST Procedure visit [facility] Onc [address] [place] [address] 86197 Becky Lisa MD [address] [place] [address] 80529 [email or web address] 05/18/2025 2:40 PM EST Treatment [facility] Onc [address] [place] [address] 94033 Becky Lisa MD [address] [place] [address] 10055 [email or web address] 05/21/2025 2:40 PM EST Treatment [facility] Onc [address] [place] [address] 07822 Becky Lisa MD [address] [place] [address] 57627 [email or web address] 05/22/2025 2:40 PM EST Treatment [facility] Onc [address] [place] [address] 79612 Becky Lisa MD [address] [place] [address] 17301 [email or web address] 05/23/2025 2:40 PM EST Treatment [facility] Rad Onc [address] [place] [address] 21369 Becky Lisa MD [address] [place] [address] 84476 [email or web address] 05/24/2025 2:40 PM EST Treatment [facility] Rad Onc [address] [place] [address] 04847 Becky Lisa MD [address] [place] [address] 35137 [email or web address] 05/24/2025 3:20 PM EST Procedure visit [facility] Rad Onc [address] [place] [address] 48124 Becky Lisa MD [address] [place] [address] 52214 [email or web address] 05/25/2025 2:40 PM EST Treatment [facility] Rad Onc [address] [place] [address] 36443 Becky Lisa MD [address] [place] [address] [phone] [email or web address] 05/28/2025 2:40 PM EST Treatment [facility] Rad Onc [address] [place] [address] 22537 Becky Lisa MD [address] [place] [address] [phone] [email or web address] documented as of this encounter Visit Diagnoses Not on filedocumented in this encounter Care Teams Warehouse Shipping Clerk Relationship Specialty Start Date End Date Katlin Otero MD [address] [place] [address] PCP - General Internal Medicine 02/13/25 documented as of this encounter Additional Source Comments The information contained in this document represents components of the legal health record. It is not the complete legal health record.[facility]
[2025-04-16 13:09] VITALS: BP 102/62; PULSE 85; O2SAT 95; BMI 30.5
--- NOTE | 2025-04-16 13:09 | MHC.PC.OV ---
Vital Signs 04/16/25 13:09 Height 5 ft Weight 156 lb 4 oz BMI 30.5 BP 102/62 Blood Pressure Location Lt brachial Position Sitting Pulse 85 Pulse Source Pulse Oximeter Pulse Oximetry (%) 95 Oxygen Delivery Method Room Air Intake Visit Reasons: Annual PE/AJ, HTN - see comments Allergies codeine (Codeine) Allergy (Intermediate, Verified 04/16/25 13:09) VOMITING/RASH ibuprofen (IBUPROFEN) Allergy (Intermediate, Verified 04/16/25 13:09) TACHYCARDIA fenofibrate Allergy (Unknown, Verified 04/16/25 13:09) Unknown hydrocodone (From Vicodin) Allergy (Unknown, Verified 04/16/25 13:09) Unknown tramadol Adverse Reaction (Intermediate, Verified 04/16/25 13:09) palpitations Tobacco use date assessed: 12/11/24 Fall risk assessment: No Falls in past year Last assessed Fall Risk: 04/16/25 Dental Screening Dental Screen Date: 07/21/24 [facility] Medical History Mass of anus Breast cancer screening by mammogram Insomnia Carpal tunnel syndrome Anxiety and depression Osteoarthritis Tobacco abuse Hypercholesterolemia Peripheral arterial disease Obesity (BMI 30-39.9) Gastroesophageal reflux disease Coronary artery disease Hypertension Obstructive sleep apnea Surgical History Status post insertion of drug-eluting stent into right coronary artery for coronary artery disease S/P breast biopsy, left History of knee replacement procedure of left knee History of tubal ligation Family History Father No problems noted. Mother Diabetes mellitus HTN (hypertension) Stroke Brother No problems noted. Brother No problems noted. Brother No problems noted. Brother No problems noted. Brother No problems noted. Brother No problems noted. Sister Cancer Sister No problems noted. Daughter No problems noted. Daughter No problems noted. Daughter No problems noted. Social History Housing: Apartment Alcohol intake: current Alcohol intake frequency: holidays/special occasions only Comment: QOD 5 drinks Patient Tobacco Use Status: Former Tobacco user Tobacco use type: Cigarette Cigarette Packs Per Day: 0.5 Years Smoked: started 20 years old e-Cigarette/Vaping Use: Never Used Second Hand Smoke Exposure: Yes service: No Current occupational status: unemployed Cognitive needs: Yes (walker) Hearing needs: No Vision needs: No Questionnaire Thrive Questionnaire Date Thrive assessed: 12/11/24 I am a: Patient What is your living situation today?: I choose not to answer this question Within the past 12 months, did the food you bought not last and you didn't have the money to get more?: I choose not to answer this question Within the past 12 months, did you worry whether your food would run out before you got money to buy more?: I choose not to answer this question Do you have trouble paying for medicines?: I choose not to answer this question Do you have trouble getting transportation to medical appointments?: I choose not to answer this question Do you have trouble paying your heating and electricity bill?: I choose not to answer this question Do you have trouble taking care of your child, family member or friend?: I choose not to answer this question Do you have trouble with day-to-day activities such as bathing, preparing meals, shopping, managing finances, etc.?: I choose not to answer this question Are you currently unemployed and looking for a job?: I choose not to answer this question Are you interested in more education?: I choose not to answer this question Please select the resources that you would like help with: Housing/[facility] Currently or been in a relationship where the following occur: No concerns reported THRIVE Score: 0 AJ-7 AMB Questionnaire AJ-7 Date AJ - 7 assessed: 07/21/24 Source: Developed by Drs. Jesús Smallwood, Pallavi Garcia, Maurice Farrell and colleagues, with an educational sofia from [employer]. Review of Systems Const Denies poor appetite and Denies weakness Eyes Denies no additional complaints ENT Reports Normal hearing present, Denies dizziness, Denies nasal congestion, Denies tinnitus and Denies sore throat Card Denies chest pain, Denies syncope, Denies rapid heart rate and Denies dyspnea Resp Denies cough and Denies dyspnea GI Denies change in stool character, Reports constipation, Denies diarrhea, Denies nausea and Denies vomiting Denies urinary frequency, Denies difficulty voiding and Denies dysuria Neuro Reports Normal hearing present, Denies confusion, Denies dizziness, Denies syncope and Denies weakness Psych Denies confusion Physical exam (Primary Care) Vital Signs: Last Vital Signs Pulse 85 04/16/25 13:09 BP 102/62 04/16/25 13:09 Pulse Ox 95 04/16/25 13:09 Oxygen Delivery Method Room Air 04/16/25 13:09 BMI result Body Mass Index 30.5 Tobacco/Smoking Status: Tobacco use Status Tobacco use date assessed 12/11/24 04/16/25 13:10 Patient Tobacco Use Status Former Tobacco user 04/16/25 13:10 Tobacco use type Cigarette 04/16/25 13:10 e-Cigarette/Vaping Use Never Used 04/16/25 13:10 Thrive Assessment: Date of Thrive Assessment Date Thrive assessed 12/11/24 04/16/25 13:10 Currently or been in a relationship where the following occur: No concerns reported Const General: No confusion Orientation/consciousness: No confusion HENMT Head: Yes normocephalic Ears: external ears normal and TM's normal bilaterally Face and sinus: Yes normal facial exam Mouth: moist mucous membranes Throat: Yes tonsils normal Eyes Conjunctivae: conjunctivae normal Pupils: Equal, round and reactive pupils present and Pupil accommodation reflex normal Direct Ophthalmoscopy: normal light reflex Neck Neck: No lymphadenopathy Thyroid: Thyroid normal Chest Chest palpation & inspection: normal inspection of the chest Resp Effort & Inspection: normal respiratory effort and no audible wheezes Auscultation: clear to auscultation bilaterally, no crackles, no wheezes and lung sounds not diminished Cardio Rate: regular rate Rhythm: regular rhythm Peripheral pulses: radial pulses present and dorsalis pedis present GI Palpation (GI): no masses Auscultation: normal bowel sounds and normoactive bowel sounds Rectal Exam - Female: deferred Skin General skin exam: no rashes or lesions noted Rashes: no rashes Neuro General: No confusion Cranial nerves: Yes Equal, round and reactive pupils present and Yes Normal hearing present Cognition (Neuro): normal cognition Gait exam (Neuro): Normal gait present Motor exam (neuro): 5/5 motor strength present throughout Deep tendon reflexes (DTR's): Right brachioradialis reflex intensity grade: 2+, Left brachioradialis reflex intensity grade: 2+, Right patellar reflex intensity grade: 2+ and Left patellar reflex intensity grade: 2+ Extrem General: No edema Coding Level of Care Code Est Pt Level 4 (33389) Complex EM visit Add On G2211 Diagnoses Tobacco abuse Z72.0 Anal squamous cell carcinoma 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 Fatty liver K76.0 Gastroesophageal reflux disease, unspecified whether esophagitis present K21.9 Esophagitis presence: esophagitis presence not specified Obesity (BMI 30-39.9) E66.9 Impaired fasting blood sugar R73.01 Hypercholesterolemia E78.00 Peripheral arterial disease I73.9 Coronary artery disease due to calcified coronary lesion I25.10; I25.84 Coronary Disease-Associated Artery/Lesion type: due to calcified coronary lesion Essential hypertension I10 Hypertension type: essential hypertension Generalized anxiety disorder F41.1 Anemia D64.9 Assessment & Plan Assessment & Plan (1) Tobacco abuse: Comment: patient is not ready to stop yet 07/2024 states has decreased to 4 a day, Stopped 08/2024 Code(s): Z72.0 - Tobacco use Category: Medical Plan: Patient states stopped smoking August (2) Anal squamous cell carcinoma: Comment: January 2025Squamous cell carcinoma, at least in-situ. Code(s): C21.0 - Malignant neoplasm of anus, unspecified Category: Medical Plan: Patient is being followed up by hematology oncology (3) Fatty liver: Code(s): K76.0 - Fatty (change of) liver, not elsewhere classified Category: Medical Plan: Low-fat diet (4) Gastroesophageal reflux disease: Code(s): K21.9 - Gastro-esophageal reflux disease without esophagitis Category: Medical Qualifiers: Esophagitis presence: esophagitis presence not specified Qualified Code(s): K21.9 - Gastro-esophageal reflux disease without esophagitis Plan: Avoid the foods that causes that usually spicy foods, tomato products, juices, coffee, soda and foods that your sensitive to. After eating do not lie down, allow 3-4 hours before in lie down. And keep the head of bed above 30 degrees to avoid the acid from going up. (5) Obesity (BMI 30-39.9): Code(s): E66.9 - Obesity, unspecified Category: Medical Plan: Patient noted to have lost weight (6) Impaired fasting blood sugar: Code(s): R73.01 - Impaired fasting glucose Category: Medical Plan: Decrease the amount of carbohydrate intake, pasta, bread, rice and potatoes are all sugar and that is aside from all the sweet stuff, remember that fruits are good but they are Sweet also. (7) Hypercholesterolemia: Comment: Discussed about the blood work. She does have the form and has been advised to do the blood work Code(s): E78.00 - Pure hypercholesterolemia, unspecified Category: Medical Plan: Avoid fried foods, chicken skin, eggs, butter margarine, pastries and meat. Be it pork or beef they have a lot of cholesterol (8) Peripheral arterial disease: Comment: Code(s): I73.9 - Peripheral vascular disease, unspecified Category: Medical Plan: Patient is being followed up at the vascular (9) Coronary artery disease: Comment: ZACARIAS to mid RCA, OM 65-70% stenosis 2014. nuclear stress -01/2019 NML Code(s): I25.10 - Atherosclerotic heart disease of [place] coronary artery without angina pectoris Category: Medical Qualifiers: Coronary Disease-Associated Artery/Lesion type: due to calcified coronary lesion Qualified Code(s): I25.10 - Atherosclerotic heart disease of [place] coronary artery without angina pectoris; I25.84 - Coronary atherosclerosis due to calcified coronary lesion Plan: Control the cholesterol, weight, blood pressure, (10) Hypertension: Comment: Mildly elevated Code(s): I10 - Essential (primary) hypertension Category: Medical Qualifiers: Hypertension type: essential hypertension Qualified Code(s): I10 - Essential (primary) hypertension Plan: Continue with blood pressure medication. Decrease salt intake and exercise (11) Generalized anxiety disorder: Comment: Declined referral for counseling September 2021 Code(s): F41.1 - Generalized anxiety disorder Category: Medical Plan: Continue with present therapy (12) Anemia: Code(s): D64.9 - Anemia, unspecified Category: Medical Plan History of Present Illness The patient is a 69-year-old female presenting for a physical examination and follow-up on multiple chronic conditions, including squamous cell carcinoma of the anus. The patient has a history of obesity, with a significant weight loss of 44 to 45 pounds recently noted. She has coronary artery disease, gastroesophageal reflux disease, hypertension, obstructive sleep apnea, and peripheral arterial disease. The patient is a smoker, although she states she stopped smoking in August. The patient has been diagnosed with squamous cell carcinoma of the anus, confirmed by biopsy revealing an anal mass. A PET scan on February 06 showed an avid anal mass and mesorectal lymph node involvement, with bilateral inguinal lymph nodes noted. Recommendations for treatment include radiation therapy and concurrent chemoradiation therapy if the cancer is localized. The patient has a history of hepatic steatosis and anxiety disorder. She also has a history of alcohol use disorder, which is relevant to her current diagnosis of squamous cell carcinoma. Her last blood work in January showed normal blood count with mild thrombocytosis. Health Maintenance - Mammogram last done in July 2023 - Bone density test last done in January 2021 - Declined colonoscopy - Advised to continue smoking cessation Social History - Smoker, stopped smoking in August - Reports significant weight loss of 44 to 45 pounds Review of Systems - General: Reports significant weight loss of 44 to 45 pounds - Cardiovascular: Denies chest pain - Respiratory: Denies dyspnea - Gastrointestinal: Reports gastroesophageal reflux disease - Neurological: Reports anxiety disorder Physical Exam General: Cooperative, healthy appearing, comfortable, no acute distress and well developed Orientation: Patient oriented x3 Limitations: No limitations Head: Normal to inspection Ears: Hearing grossly normal bilaterally Nose: Normal external nose present Face and sinus: Normal facial exam Eyes: Appearance normal, both eyes and all related structures Neck: Normal visual inspection and Yes full ROM Respiratory: Normal respiratory effort and able to speak in complete sentences. Clear to auscultation bilaterally Cardiovascular: Regular rate and rhythm. Normal S1 and S2 GI: Normal to inspection. Soft to palpation and nontender Skin: No rashes or lesions noted Neuro: Patient oriented x3 Extremities: Normal to inspection Results - Labs: Normal blood count with mild thrombocytosis - Imaging: PET scan on February 06 showed avid anal mass and mesorectal lymph node involvement - Imaging: CT scan showed soft tissue mass involving posterior aspect of the lower rectum and anus extending to the gluteal skin Plan Patient was informed and verbally consented to the use of an ambient scribe for clinic note documentation during this visit. 1. Squamous Cell Carcinoma Of The Anus The patient has been diagnosed with squamous cell carcinoma of the anus, confirmed by biopsy. A PET scan revealed an avid anal mass and mesorectal lymph node involvement, with bilateral inguinal lymph nodes noted. Recommendations include radiation therapy and concurrent chemoradiation therapy if localized. 2. Obesity The patient has a history of obesity with a recent significant weight loss of 44 to 45 pounds. 3. Coronary Artery Disease The patient has a history of coronary artery disease. 4. Hypertension The patient has a history of hypertension. 5. Obstructive Sleep Apnea The patient has a history of obstructive sleep apnea. 6. Peripheral Arterial Disease The patient has a history of peripheral arterial disease. 7. Anxiety Disorder The patient has a history of anxiety disorder. 8. Hepatic Steatosis The patient has a history of hepatic steatosis. 9. Alcohol Use Disorder The patient has a history of alcohol use disorder, which is relevant to her current diagnosis of squamous cell carcinoma. 10. Thrombocytosis The patient's last blood work showed mild thrombocytosis. 11. Gastroesophageal Reflux Disease The patient has a history of gastroesophageal reflux disease. Discussion Notes During the visit, we discussed the patient's diagnosis of squamous cell carcinoma of the anus and the treatment options, including radiation therapy and concurrent chemoradiation therapy if localized. We also reviewed the importance of smoking cessation and the patient's recent efforts to quit smoking. The need for follow-up with hematology oncology and the potential for further imaging studies was emphasized. Patient Instructions - Continue to abstain from smoking and seek support if needed. - Follow up with hematology oncology as scheduled. - Attend all recommended imaging studies and follow-up appointments. - Maintain a healthy diet and monitor weight loss. Orders: Orders T Spot TB Today C21.0 - Malignant neoplasm of anus, unspecified Thyroid Stimulating Hormone Today C21.0 - Malignant neoplasm of anus, unspecified IRON PROFILE Today C21.0 - Malignant neoplasm of anus, unspecified Ferritin Today C21.0 - Malignant neoplasm of anus, unspecified Complete Blood Count Auto Diff Today C21.0 - Malignant neoplasm of anus, unspecified Comprehensive Met. Panel Today C21.0 - Malignant neoplasm of anus, unspecified Free T4 (Free Thyroxine) Today C21.0 - Malignant neoplasm of anus, unspecified Reticulocyte Count Today C21.0 - Malignant neoplasm of anus, unspecified Vitamin D 25-OH Total Today C21.0 - Malignant neoplasm of anus, unspecified Vitamin B12 and Folate Today C21.0 - Malignant neoplasm of anus, unspecified Hemoglobin A1c Today C21.0 - Malignant neoplasm of anus, unspecified Medications: New [SHOWER CHAIR] As directed 1 ea 0RF C21.0 - Malignant neoplasm of anus, unspecified
== END 2025-04-16 14:29 | disposition home or self-care (01) ==
LOC: HO.HMCH 13:01
PROVIDERS: PCP Internal Medicine; Visit Provider Internal Medicine
DX: K21.9 Gastro-esophageal reflux disease without esophagitis (principal); C21.0 Malignant neoplasm of anus, unspecified; E66.9 Obesity, unspecified; Z68.30 Body mass index [BMI] 30.0-30.9, adult; Z72.0 Tobacco use; K76.0 Fatty (change of) liver, not elsewhere classified; R73.01 Impaired fasting glucose; E78.00 Pure hypercholesterolemia, unspecified; I73.9 Peripheral vascular disease, unspecified; I25.10 Atherosclerotic heart disease of native coronary artery without angina pectoris; I25.84 Coronary atherosclerosis due to calcified coronary lesion; I10 Essential (primary) hypertension

== ENCOUNTER 2025-04-16 13:00 | Outpatient (REF) | payer MEDICARE, SELFPAY ==
[2025-04-16 14:52] LABS: MANUAL DIFF FLAG NO
[2025-04-16 15:06] LABS: Hematocrit 28.2 % (37.0-47.0); Hemoglobin 8.5 g/dl (12.0-16.0); Imm Gran Abs Auto 0.11 X10*3/uL (0.00-0.03); Imm Gran Pct Auto 0.6 % (0.0-0.4); Lymphocytes Absolute Auto 1.2 X10*3/uL (1.2-4.9); Mean Corpuscular HGB Conc 30.1 g/dl (31.0-35.0); Mean Corpuscular Hemoglobin 24.2 pg (27.0-33.0); Mean Corpuscular Volume 80.3 fL (80.0-98.0); NRBC Abs Auto 0.000 X10*3/uL (0.0-0.012); NRBC Pct Auto 0.0 /100WBC (0.0-0.2); Platelet Count 480 X10*3/uL (160-400); Red Blood Count 3.51 X10*6/uL (4.20-5.50); Reticulocytes Absolute 0.057 X10*6/uL (0.026-0.095); White Blood Count 17.3 X10*3/uL (4.8-10.8)
[2025-04-16 16:01] LABS: Folate 3.4 ng/mL (> or = 4.0); Vitamin B12 456 pg/mL (200-900)
[2025-04-16 16:49] LABS: Alanine Aminotransferase 13 U/L (0-31); Albumin Level 3.4 g/dL (3.5-5.0); Anion Gap 17 (12-20); Aspartate Amino Transferase 34 U/L (5-31); Blood Urea Nitrogen 57 mg/dL (9-16); Calcium 9.6 mg/dL (8.4-10.2); Carbon Dioxide 16 mmol/L (22-29); Chloride 106 mmol/L (96-108); Estimated Glomerular Filt Rate 13; Iron 11 mcg/dL (30-160); Percent Iron Saturation 6 % (15-50); Potassium 5.2 mmol/L (3.3-5.1); Sodium 134 mmol/L (135-145); Total Iron Binding Capacity 173 mcg/dL (228-428); Total Protein 7.2 g/dL (6.5-8.0); Unsaturated Iron Binding 162 ug/dL
[2025-04-16 16:56] LABS: Alkaline Phosphatase 156 U/L (39-117)
[2025-04-16 17:12] LABS: Ferritin 288 ng/mL (10-250); Free T4 (Free Thyroxine) 1.01 ng/dL (0.71-1.85); Thyroid Stimulating Hormone 1.19 uIU/mL (0.32-4.0)
[2025-04-18 22:33] LABS: TS Negative Control Passed; TS Panel A 0; TS Panel B 2; TS Positive Control Passed; TSpotTB Negative (Negative)
== END 2025-04-16 13:01 | disposition home or self-care (01) ==
LOC: HO.LAB 13:00
PROVIDERS: PCP Internal Medicine; Visit Provider Internal Medicine
DX: K75.0 Abscess of liver (principal); C21.0 Malignant neoplasm of anus, unspecified; F17.210 Nicotine dependence, cigarettes, uncomplicated; K21.9 Gastro-esophageal reflux disease without esophagitis; E66.9 Obesity, unspecified; R73.01 Impaired fasting glucose; E78.00 Pure hypercholesterolemia, unspecified; I73.9 Peripheral vascular disease, unspecified; I25.10 Atherosclerotic heart disease of native coronary artery without angina pectoris; I25.84 Coronary atherosclerosis due to calcified coronary lesion; I10 Essential (primary) hypertension; F41.1 Generalized anxiety disorder; D64.9 Anemia, unspecified; Z68.30 Body mass index [BMI] 30.0-30.9, adult
CPT/HCPCS: 36415; 80053; 82306; 82607; 82728; 82746; 83036; 83540; 84439; 84443; 85025; 85045; 86481; 99212

== ENCOUNTER 2025-04-17 10:17 | Inpatient (IN) | payer MEDICARE, SELFPAY ==
[2025-04-17] VITALS (7 sets, daily range): BP systolic 86–127; BP diastolic 39–55; PULSE 64–87; RESP 14–20; TEMP 36.3–36.6; O2SAT 98–100; BMI 30.3
--- NOTE | ~2025-04-17 | US_ITS ---
EXAMINATION: US RETROPERITONEAL LIMITED (RENAL ONLY) CLINICAL INFORMATION: Hematuria COMPARISON: Previous CT of the abdomen and pelvis most recently April 2025 and abdominal ultrasound December 2020. TECHNIQUE: Real-time imaging of the kidneys. FINDINGS: RIGHT KIDNEY: 10.4 x 5.8 x 5.1 cm (SAG x AP x TRV). The kidney is normal in size, contour, and echogenicity. Renal cortical thickness is normal. 5 x 3 x 5 mm stone in the lower pole. Multiple small 2 to 3 mm echogenic densities in the central right kidney which when compared with prior CT probably represent small stones as well. No focal parenchymal lesions. No hydronephrosis. LEFT KIDNEY: 8.9 x 5.3 x 4.4 cm (SAG x AP x TRV). The kidney is normal in size, contour, and echogenicity. Renal cortical thickness is normal. No calculi. 10 mm simple cyst in the lateral midpole. No hydronephrosis. US/US renal BI IMPRESSION: Small right renal stones. Small left renal cyst. No hydronephrosis. Electronically signed by: Naima Gifford MD 04/20/2025 12:34 PM EDT
--- NOTE | ~2025-04-17 | CT_ITS ---
EXAMINATION: CT ABDOMEN AND PELVIS WITHOUT CONTRAST CLINICAL INFORMATION: Anal squamocellular carcinoma, rectal bleed. COMPARISON: February 12, 2025 TECHNIQUE: Multidetector volumetric imaging was performed from the superior aspect of the liver through the pubic symphysis. Sagittal and coronal reformatted images were obtained on the technologist's workstation. This CT examination was performed using dose optimization techniques as appropriate, variously including the following: *Automated exposure control *Adjustment of mA and/or kV according to patient size (this includes techniques or standardized protocols for targeted exams where dose is matched to indication/reason for exam; i.e. extremities or head) *Use of iterative reconstruction technique. DLP: 589 mGy centimeter. FINDINGS: Inadequate evaluation of the intra-abdominal organs and vascular structures due to lack of IV contrast. LUNG BASES: No acute airspace disease. Nonspecific cluster of 2 mm noncalcified pulmonary nodules, right lower lung lobe. LIVER, GALLBLADDER, AND BILIARY TREE: Liver measures 16 cm. Nodular surface. Multiple layering calcific abnormality is seen in the gallbladder lumen. Trace of pericholecystic fluid. No gallbladder distention. No intrahepatic or extrahepatic biliary ductal dilatation. PANCREAS: No peripancreatic fluid collections. No main pancreatic ductal dilatation. Volume loss. SPLEEN: 10 cm. ADRENAL GLANDS: No nodular lesions. KIDNEYS AND URETERS: Multiple, nonobstructing, 3 mm calculi in the right pelvicalyceal system. Nonspecific perinephric edema pattern, bilaterally. No gross hydronephrosis in either kidney. BLADDER: Fluid-filled. GASTROINTESTINAL TRACT: There is a 68 x 82 x 32 mm slightly dense probably exophytic abnormality extending from the posterior margin of the anal region/perineum measuring 32 Hounsfield units. Numerous diverticula, left hemicolon. Abundant stool. No intestinal obstruction pattern. There is a 2 cm fat density within the lumen of the proximal descending colon/splenic colonic flexure. No gross intestinal wall thickening. Appendix is normal. No ascites. No pneumoperitoneum. No pneumatosis intestinalis.. ABDOMINAL WALL: Small fat-containing inguinal hernias, right greater than the left side. LYMPH NODES: No specific prominent lymph nodes in the retroperitoneum and perirectal. VASCULAR: Mixed plaques throughout the abdominal aorta wall and iliac arteries without gross aneurysm. Calcified plaques in the coronary arteries, descending thoracic aorta, splenic artery, mesenteric arteries, origin of the right main renal artery and femoral arteries. PELVIC VISCERA: Inadequate evaluation. OSSEOUS STRUCTURES: Multilevel thoracolumbar spondylosis. Levoconvex curvature of the lumbar spine. Fransisca type I sacralization. Spondylosis, moderate to severe at L4-5. Degenerative changes, mild to moderate in the coxofemoral joints pronounced on the right hip. CT/CT abdomen pelvis wo IV con IMPRESSION: Diverticular disease, left hemicolon. Fatty density, 2 cm mass, proximal descending colon/splenic colonic flexure. 7 x 8 cm exophytic mass, posterior perianal region. Cholelithiasis and questionable acute calculus cholecystitis. Hepatocellular disease/cirrhosis. Nonobstructing nephrolithiasis, right kidney. Coronary artery disease and atherosclerosis disease. Subcentimeter pulmonary nodules, right lower lung lobe. Fleischner guidelines were followed. Electronically signed by: Salvatore Lucero MD 04/18/2025 10:31 AM EDT
[2025-04-17 11:21] LABS: MANUAL DIFF FLAG NO
[2025-04-17 11:22] LABS: Hematocrit 27.2 % (37.0-47.0); Hemoglobin 8.4 g/dl (12.0-16.0); Imm Gran Abs Auto 0.09 X10*3/uL (0.00-0.03); Imm Gran Pct Auto 0.8 % (0.0-0.4); Lymphocytes Absolute Auto 0.9 X10*3/uL (1.2-4.9); Mean Corpuscular HGB Conc 30.9 g/dl (31.0-35.0); Mean Corpuscular Hemoglobin 24.8 pg (27.0-33.0); Mean Corpuscular Volume 80.2 fL (80.0-98.0); NRBC Abs Auto 0.000 X10*3/uL (0.0-0.012); NRBC Pct Auto 0.0 /100WBC (0.0-0.2); Platelet Count 390 X10*3/uL (160-400); Red Blood Count 3.39 X10*6/uL (4.20-5.50); White Blood Count 11.9 X10*3/uL (4.8-10.8)
[2025-04-17 11:31] LABS: INTERNATIONAL NORM RATIO 1.2 (0.9-1.1); Prothrombin Time 14.0 SEC (10.9-12.4)
[2025-04-17 11:47] LABS: Alanine Aminotransferase 12 U/L (0-31); Albumin Level 3.3 g/dL (3.5-5.0); Alkaline Phosphatase 157 U/L (39-117); Anion Gap 18 (12-20); Aspartate Amino Transferase 34 U/L (5-31); Blood Urea Nitrogen 54 mg/dL (9-16); Calcium 9.4 mg/dL (8.4-10.2); Carbon Dioxide 13 mmol/L (22-29); Chloride 108 mmol/L (96-108); Creatinine Clr Calc Pharmacy 15.9; Estimated Glomerular Filt Rate 16; Magnesium 1.3 mg/dL (1.6-2.6); Potassium 5.2 mmol/L (3.3-5.1); Sodium 134 mmol/L (135-145); Total Protein 6.9 g/dL (6.5-8.0)
--- NOTE | 2025-04-17 12:41 | ED.GENADULT ---
HPI - General Adult General Chief complaint: General Medical Stated complaint: transfusion needed? sent by Time Seen by Provider: 04/17/25 12:41 Source: patient and family (patient's daughter) Mode of arrival: ambulatory Limitations: no limitations History of Present Illness ED Provider: Shari Soriano PA-C HPI narrative: This is a 69 year old person assigned female at with a history of anxiety, HTN, LOLIS, tobacco use, anal squamous cell carcinoma, osteopenia, peripheral artery disease, and GERD that presents for evaluation of diarrhea, dizziness, and abnormal labs. Her daughter Lesly was present and provided history. The patient had abnormal lab results and was referred here by primary care provider including elevated CR, decreased magnesium, and decreased hemoglobin. She reports that she has been having dizziness with standing for the last week. She denies chest pain or shortness of breath. She does state that she can become short of breath with activity. She reports that she fell in the shower three days ago because of her dizziness, she denies headstrike or loss of consciousness. Her primary care provider is trying to arrange a shower chair for her. She reports that she has had diarrhea today and there was bright red blood in the toilet. She reports that she has difficulty urinating but denies pain with urination. She has anal pain when she is sitting due to the cancer. She takes codeine for her anal pain. She has not started cancer treatment yet because she needs imaging of her lymph nodes in her leg before she starts. She was unable to sit still in the MRI machine she will need to return for an MRI after pre-medication. Related Data Previous Rx's ?Medication ?Instructions ?Recorded ibuprofen 600 mg tablet 600 mg PO TID #30 tabs 09/23/22 rosuvastatin 20 mg tablet 20 mg PO DAILY #90 tabs 03/10/24 metoprolol succinate 25 mg 25 mg PO DAILY #90 tabs 05/05/24 tablet,extended release 24 hr ezetimibe 10 mg tablet 10 mg PO DAILY 90 days #90 tabs 09/01/24 aspirin 81 mg tablet,delayed 81 mg PO DAILY 90 days #90 tabs 11/30/24 release lisinopril 10 mg tablet 10 mg PO DAILY 90 days #90 tabs 12/11/24 omeprazole 20 mg capsule,delayed 20 mg PO DAILY 90 days #90 caps 01/11/25 release alprazolam 0.25 mg tablet 0.25 mg PO BID-TID PRN sleep 30 02/14/25 days #75 tabs capecitabine 500 mg tablet 1,500 mg (3 x 500 mg) PO BID #180 02/21/25 tabs oxycodone 5 mg tablet 5 mg PO Q8H PRN Pain (Scale Score 03/19/25 7-10) #30 tabs zolpidem 5 mg tablet 5 mg PO BEDTIME PRN insomnia 30 04/05/25 days #30 tabs amlodipine 5 mg tablet 5 mg PO DAILY 90 days #90 tabs 04/10/25 SHOWER CHAIR #1 ea 04/16/25 Allergies Allergy/AdvReac Type Severity Reaction Status Date / Time codeine (Codeine) Allergy Intermediate VOMITING/RA Verified 04/17/25 10:22 SH fenofibrate Allergy Unknown Unknown Verified 04/17/25 10:22 hydrocodone (From Vicodin) Allergy Unknown Unknown Verified 04/17/25 10:22 tramadol AdvReac Intermediate palpitation Verified 04/17/25 10:22 s Review of Systems Constitutional: Constitutional: Reports as per HPI Eyes: Eyes: Reports as per HPI ENT: Reports as per HPI Cardiovascular: Cardiovascular: Reports as per HPI Respiratory: Respiratory: Reports as per HPI Gastrointestinal: Gastrointestinal: Reports as per HPI Genitourinary: Genitourinary: Reports as per HPI Musculoskeletal: Musculoskeletal: Reports as per HPI Integumentary/Breasts: Skin/Breast: Reports as per HPI Neurologic: Reports as per HPI Psychiatric: Psychiatric: Reports as per HPI Endocrine: Endocrine: Reports as per HPI Hematologic/Lymphatic: Hematologic/Lymphatic: Reports as per HPI Allergic/Immunologic: Allergic/Immunologic: Reports as per HPI [facility] Past Medical History Attestation statement: The following information was validated with the patient. (all information validated with the patient's daughter) Source: old records reviewed, obtained from family (patient's daughter provided additional history and confirmed the history provide by the patient. ) and nursing notes reviewed Medical History Mass of anus Breast cancer screening by mammogram Insomnia Carpal tunnel syndrome Anxiety and depression Osteoarthritis Tobacco abuse Hypercholesterolemia Peripheral arterial disease Obesity (BMI 30-39.9) Gastroesophageal reflux disease Coronary artery disease Hypertension Obstructive sleep apnea Surgical History Status post insertion of drug-eluting stent into right coronary artery for coronary artery disease S/P breast biopsy, left History of knee replacement procedure of left knee History of tubal ligation Family History Family History Father No problems noted. Mother Diabetes mellitus HTN (hypertension) Stroke Brother No problems noted. Brother No problems noted. Brother No problems noted. Brother No problems noted. Brother No problems noted. Brother No problems noted. Sister Cancer Sister No problems noted. Daughter No problems noted. Daughter No problems noted. Daughter No problems noted. Social History Social History Housing: Apartment Alcohol intake: current Alcohol intake frequency: holidays/special occasions only Comment: QOD 5 drinks Patient Tobacco Use Status: Former Tobacco user Tobacco use type: Cigarette Cigarette Packs Per Day: 0.5 Years Smoked: started 20 years old Smoked in Last 30 Days: No e-Cigarette/Vaping Use: Never Used Second Hand Smoke Exposure: Yes Use of substances other than those prescribed or required for medical reasons: No Advance Directives: No Advance Directives Information Provided: Yes Do you have a plan to hurt others: No Plan service: No Current occupational status: unemployed Cognitive needs: Yes (walker) Hearing needs: No Vision needs: No Physical Exam ED Vital Signs: Vital Signs - 24 hr 04/17/25 10:19 04/17/25 12:53 Temperature 98 F 97.8 F Pulse Rate 87 64 Respiratory Rate 18 17 Blood Pressure 86/51 L 103/39 L Pulse Oximetry 98 99 Oxygen Delivery Method Room Air Room Air BMI result Body Mass Index 30.3 Const General: cooperative, alert, awake and other (Pale appearing) Orientation/consciousness: patient oriented x3 HENMT Head: Yes normal to inspection and Yes atraumatic Ears: hearing grossly normal bilaterally and external ears normal General nose exam: Normal external nose present, no nasal discharge noted and no epistaxis Face and sinus: Yes normal facial exam, No abrasion and No laceration Mouth: no drooling and no muffled voice Eyes General: appearance normal, both eyes and all related structures Periorbital: periorbital findings normal Eyelids: Yes eyelids normal Conjunctivae: conjunctivae normal Pupils: Equal, round and reactive pupils present EOM: EOMs intact bilaterally Neck Neck: Yes normal visual inspection and Yes full ROM Resp Effort & Inspection: normal respiratory effort and able to speak in complete sentences Cardio Rate: regular rate GI Inspection: No distended Palpation (GI): Soft to palpation, nontender and no guarding Auscultation: normal bowel sounds Skin General skin exam: no rashes or lesions noted Neuro General: patient oriented x3 and moves all extremities Cranial nerves: Yes Equal, round and reactive pupils present Cognition (Neuro): normal cognition Extrem General: Yes normal to inspection, Yes full ROM and Yes capillary refill normal Psych Appearance: grossly normal Mental Status: mental status grossly normal Affect: normal affect Attitude: cooperative Thought process: Normal thought process present Thought content: Normal thought content present Insight: Good insight present (Psych) Medications Administered Discontinued Medications Generic Name Dose Route Start Last Admin Trade Name Freq PRN Reason Stop Dose Admin Magnesium Sulfate 2 gm in 50 mls @ 150 mls/hr 04/17/25 13:02 04/17/25 13:30 Magnesium Sulfate/H2o IV 04/17/25 13:21 Infused ONCE ONE Infusion Acetaminophen 1,000 mg in 100 mls @ 400 mls/hr 04/17/25 13:24 04/17/25 14:00 Ofirmev IV 04/17/25 13:38 Infused ONCE ONE Infusion Medical Decision Making Medical Decision Making [facility] Narrative: Patient is a 69 year old assigned female at with a history of anxiety, HTN, LOLIS, tobacco use, anal squamous cell carcinoma, osteopenia, peripheral artery disease, and GERD presenting to the emergency department today with dizziness, diarrhea, and abnormal outpatient labs. Patient's physical exam was as noted in the physical exam portion of this note. Patient overall pale. Patient's blood work showed a WBC of 11.9, hgb of 8.4, hct of 27.2, potassium of 5.2, BUN of 54, CR of 2.99, AST of 34, alk phos of 157, albumin of 3.3, magnesium of 1.3, and decreased iron studies. Patient's BUN + CR are both newly elevated since 01/2025. Given patient's clinical presentation, I am concerned for acute anemia. Patient's daughter signed blood consent. 1 unit of PRBCs ordered. Patient was given IV magnesium. I spoke to the hospitalist team who agreed to admission. I explained my physical exam findings as well as all test results to the patient. I answered all questions asked by the patient. Patient and the patient's daughter verbalized agreement and understanding with this treatment plan and admission. Differential Diagnosis Differential Diagnoses: The differential diagnosis associated with the presentation includes Hypomag Anemia NAREN Admission/Observation Consideration of admission/observation: Escalation of care including admission/observation considered Patient admitted as noted in the MDM Rationale portion of this note. Consult Healthcare Provider Management of the patient was discussed with: Hospitalist (agreed to admission as noted in the MDM Rationale portion of this note. ) Lab Data [facility] Lab Attestation statement: I reviewed the patient's lab results. My interpretation of these results are in the MDM Rationale portion of this note. 04/17/25 11:14 04/17/25 11:14 Labs: Lab Results 04/17/25 Range/Units 11:14 WBC 11.9 H (4.8-10.8) X10*3/uL RBC 3.39 L (4.20-5.50) X10*6/uL Hgb 8.4 L (12.0-16.0) g/dl Hct 27.2 L (37.0-47.0) % MCV 80.2 (80.0-98.0) fL MCH 24.8 L (27.0-33.0) pg MCHC 30.9 L (31.0-35.0) g/dl RDW 16.6 H (11.0-16.0) % Plt Count 390 (160-400) X10*3/uL MPV 9.8 (9.4-12.3) fL Immature Gran % (Auto) 0.8 H (0.0-0.4) % Neut % (Auto) 80.3 H (45-73) % Lymph % (Auto) 7.6 L (20-40) % Brown % (Auto) 10.1 (2-11) % Eos % (Auto) 0.7 (0-4) % Baso % (Auto) 0.5 (0-2) % Lymph # (Auto) 0.9 L (1.2-4.9) X10*3/uL Brown # (Auto) 1.2 (0.1-1.2) X10*3/uL Eos # (Auto) 0.1 (0.0-0.4) X10*3/uL Baso # (Auto) 0.1 (0.0-0.2) X10*3/uL Abs Immat Gran (auto) 0.09 H (0.00-0.03) X10*3/uL Absolute Neuts (auto) 9.6 H (2.0-8.3) x10*3/uL Absolute Nucleated RBC 0.000 (0.0-0.012) X10*3/uL Nucleated RBC % (auto) 0.0 (0.0-0.2) /100WBC PT 14.0 H (10.9-12.4) SEC INR 1.2 H (0.9-1.1) Sodium 134 L (135-145) mmol/L Potassium 5.2 H (3.3-5.1) mmol/L Chloride 108 (96-108) mmol/L Carbon Dioxide 13 L (22-29) mmol/L Anion Gap 18 (12-20) BUN 54 H (9-16) mg/dL Creatinine 2.99 H (0.5-1.4) mg/dL Estim Creat Clear Calc 15.9 Estimated GFR 16 Random Glucose 105 (60-115) mg/dL Calcium 9.4 (8.4-10.2) mg/dL Magnesium 1.3 L* (1.6-2.6) mg/dL Total Bilirubin 0.4 (0.0-1.0) mg/dL AST 34 H (5-31) U/L ALT 12 (0-31) U/L Alkaline Phosphatase 157 H (39-117) U/L Total Protein 6.9 (6.5-8.0) g/dL Albumin 3.3 L (3.5-5.0) g/dL Blood Type A Positive Antibody Screen NEGATIVE Crossmatch See Detail Independent Historian Clinical information obtained from an independent historian. History obtained from or confirmed by: Other (patient's daughter provided additional history and confirmed the history provided by the patient. ) Critical Care Time Critical Care Time Critical Care Time: Yes Total Critical Care Time: 49 Attestation: I spent 49 minutes of Critical Care Time with this patient. This does not include time spent on separately reported billable procedures. Discharge Plan Discharge Clinical Impression: Anemia, Acute kidney injury Patient Disposition: Admitted As Inpatient
[2025-04-17] MEDS: Magnesium Sulfate/H2O 2 GM/50 ML PIGGYBACK IV (13:10)
--- NOTE | 2025-04-17 13:15 | PC.NURSE ---
patient a&ox3, iv inserted, labs previously drawn, cardiac monitor technician applied sinus sridhar on monitor, vitals stable. iv mag started per order. pt c/o 02/11 rectal pain- will notify provider, call english within reach, plan of care ongoing
--- OUTSIDE RECORDS SUMMARY | 2025-04-17 15:26 | XMS_ITS | Encounter Summary ---
Author Organization [facility] Address [address] [place] [id number] Phone Care Team Providers Care Public Relations Director Name Role Phone Katlin Otero MD Primary Care Provider [phone] Encounter Details Date Type Department Care Team (Late Contact Info) Description 03/16/2025 Procedure Pass [facility], [address] [address] Social History Tobacco Use Types [...] Department Care Team (Late Contact Info) Description 04/18/2025 3:00 PM EDT Treatment [facility] Rad Onc [address] [place] [phone] Becky Lisa MD [address] [place] [phone] [email or web address] 04/19/2025 3:00 PM EDT Treatment [facility] Rad Onc [address] [place] [address] 8[address] Becky Lisa MD [address] [place] [address] [phone] [email or web address] 04/19/2025 3:20 PM EDT Procedure visit [facility] Rad Onc [address] [place] [address] Becky Lisa MD [address] [place] [address] [phone] [email or web address] 04/20/2025 3:10 PM EDT Treatment [facility] Rad Onc [address] [place] [address] Becky Lisa MD [address] [place] [address] [email or web address] 04/23/2025 3:00 PM EDT Treatment [facility] Rad Onc [address] [place] [address] 75889 Becky Lisa MD [address] [place] [address] 88567 [email or web address] 04/24/2025 3:00 PM EDT Treatment [facility] Rad Onc [address] [place] [address] 8[address] Becky Lisa MD [address] [place] [address] 65108 [email or web address] 04/25/2025 3:00 PM EDT Treatment [facility] Rad Onc [address] [place] [address] Becky Lisa MD [address] [place] [address] 80501 [email or web address] 04/26/2025 2:50 PM EDT Treatment [facility] Rad Onc [address] [place] [address] 55298 Becky Lisa MD [address] [place] [address] [email or web address] 04/26/2025 3:10 PM EDT Procedure visit [facility] Rad Onc [address] [place] [address] Becky Lisa MD [address] [place] [address] 92030 [email or web address] 04/27/2025 3:00 PM EDT Treatment [facility] Rad Onc [address] [place] [address] 60[address] Becky Lsia MD [address] [place] [address] 10[address] [email or web address] 04/30/2025 3:00 PM EDT Treatment [facility] Rad Onc [address] [place] [address] 17339 Becky Lisa MD [address] [place] [address] 24835 [email or web address] 05/01/2025 3:00 PM EDT Treatment [facility] Rad Onc [address] [place] [address] Becky Lisa MD [address] [place] [address] 58569 [email or web address] 05/02/2025 3:00 PM EDT Treatment [facility] Rad Onc [address] [place] [address] Becky Lisa MD [address] [place] [address] [phone] [email or web address] 05/03/2025 3:00 PM EDT Treatment [facility] Rad Onc [address] [place] [address] 9[address] Becky Lisa MD [address] [place] [address] 5[address]45 [email or web address] 05/03/2025 3:20 PM EDT Procedure visit [facility] Rad Onc [address] [place] [address] 9[address]68 Becky Lisa MD [address] [place] [address] 28226 [email or web address] 05/04/2025 3:00 PM EDT Treatment [facility] Rad Onc [address] [place] [address] [phone] Becky Lisa MD [address] [place] [address] 86916 [email or web address] 05/07/2025 3:00 PM EST Treatment [facility] Onc [address] [place] [address] 68[address] Becky Lisa MD [address] [place] [address] 65[address] [email or web address] 05/08/2025 2:40 PM EST Treatment [facility] Rad Onc [address] [place] [address] 136[address] Becky Lisa MD [address] [place] [address] [email or web address] 05/09/2025 2:40 PM EST Treatment [facility] Rad Onc [address] [place] [address] 9[address] Becky Lisa MD [address] [place] [address] 36453 [email or web address] 05/10/2025 2:40 PM EST Treatment [facility] Rad Onc [address] [place] [address] 18[address] Becky Lisa MD [address] [place] [address] 9[address] [email or web address] 05/10/2025 3:20 PM EST Procedure visit [facility] Rad Onc [address] [place] [address] 09272 Becky Lisa MD [address] [place] [address] 30274 [email or web address] 05/11/2025 2:40 PM EST Treatment [facility] Rad Onc [address] [place] [address] Becky Lisa MD [address] [place] [address] 94287 [email or web address] 05/14/2025 2:40 PM EST Treatment [facility] Rad Onc [address] [place] [address] 04885 Becky Lisa MD [address] [place] [address] 92621 [email or web address] 05/15/2025 2:40 PM EST Treatment [facility] Rad Onc [address] [place] [address] Becky Lisa MD [address] [place] [address] 04905 [email or web address] 05/16/2025 2:50 PM EST Treatment [facility] Rad Onc [address] [place] [address] 99803 Becky Lisa MD [address] [place] [address] 31422 [email or web address] 05/17/2025 2:40 PM EST Treatment [facility] Rad Onc [address] [place] [address] 58[address] Becky Lisa MD [address] [place] [address] 14051 [email or web address] 05/17/2025 3:20 PM EST Procedure visit [facility] Rad Onc [address] [place] [address] 00730 Becky Lisa MD [address] [place] [address] 22948 [email or web address] 05/18/2025 2:40 PM EST Treatment [facility] Rad Onc [address] [place] [address] Becky Lisa MD [address] [place] [address] 42[address] [email or web address] 05/21/2025 2:40 PM EST Treatment [facility] Rad Onc [address] [place] [address]772 Becky Lisa MD [address] [place] [address] 93424 [email or web address] 05/22/2025 2:40 PM EST Treatment [facility] Rad Onc [address] [place] [address] 9[address] Becky Lisa MD [address] [place] [address] 89919 [email or web address] 05/23/2025 2:40 PM EST Treatment [facility] Rad Onc [address] [place] [address] 9[address] Becky Lisa MD [address] [place] [address] 33361 [email or web address] 05/24/2025 2:40 PM EST Treatment [facility] Rad Onc [address] [place] [address] 43[address] Becky Lisa MD [address] [place] [address] 61079 [email or web address] 05/24/2025 3:20 PM EST Procedure visit [facility] Rad Onc [address] [place] [address] Becky Lisa MD [address] [place] [address] 23620 [email or web address] 05/25/2025 2:40 PM EST Treatment [facility] Rad Onc [address] [place] [address] Becky Lisa MD [address] [place] [address] 60486 [email or web address] 05/28/2025 2:40 PM EST Treatment [facility] Rad Onc [address] [place] [address] Becky Lisa MD [address] [place] [address] 58309 [email or web address] documented as of this encounter Visit Diagnoses Not on filedocumented in this encounter Care Teams Public Relations Director Relationship Specialty Start Date End Date Branden, Katlin Perez MD [address] [place] [address] Drive [address] [place] [address] [phone] PCP - General Internal Medicine 02/13/25 documented as of this encounter Additional Source Comments The information contained in this document represents components of the legal health record. It is not the complete legal health record.[facility]
--- OUTSIDE RECORDS SUMMARY | 2025-04-17 15:26 | XMS_ITS | Clinical Summary ---
Author Organization [facility] Address [address] [place] [id number] Phone Care Team Providers Care Senior Oracle Developer Name Role Phone Katlin Otero MD Primary Care Provider [phone] Allergies Active Allergy Reactions Criticality Noted Date [...] from the original. Letha's transportation is through Pay with a Tweet : ) and Letha's [employer] ID ([id number]). Problem Noted Date Diagnosed Date Anal cancer 03/16/2025 Cancer Staging:Clinical stage from 03/16/2025:Stage IIIA(cT3, cN1a, cM0) - Signed by Becky Lisa MD on 03/16/2025 Encounters Date Type Department Care Team Description 04/10/2025 Procedure Pass [facility] Cardiovascular And Interventional Radiology [address] [place] [address] 04/09/2025 3:06 PM EDT - 04/09/2025 11:59 PM EDT Hospital Encounter [address] [address] Becky Lisa MD Discharge Disposition: Home or Self Care 04/09/2025 Telephone [facility] Onc [address] [place] [address] Sherri Del Valle RN 04/06/2025 Telephone [facility] Onc [address] [place] [address] Becky Lisa MD 04/06/2025 Telephone [facility] at [address] [address] Angelique Mcneill LICSW 04/06/2025 Telephone [facility] at [address] [address] Carolyn Smith, RONALD 04/05/2025 Telephone [facility] at [address] [address] Angelique Mcneill LICSW 04/04/2025 Telephone [facility] at [address] [address] [employer], PRETZEL PACKER 04/03/2025 Telephone [facility] at [address] [address] Angelique Mcneill, PRETZEL PACKER transportation 04/02/2025 Telephone [facility] At [address] [address] Sherri Del Valle RN 03/29/2025 1:00 PM EDT Office Visit [facility] At [address] [address] Becky Lisa MD Anal cancer (Primary Dx) 03/29/2025 Telephone [facility] At [address] [address] Becky Lisa MD PreAut 03/29/2025 Documentation [facility] At [address] [address] Sherri Del Valle RN 03/27/2025 Telephone [facility] at [address] [address] Summer Mcneille, PRETZEL PACKER confirming ride 03/23/2025 Telephone [facility] at [address] [address] Fanta Mcneillanne, PRETZEL PACKER transportation 03/23/2025 Telephone [facility] At [address] [address] Becky Lisa MD 03/19/2025 Telephone [facility] at [address] [address] Fanta Mcneillanne, PRETZEL PACKER transportation and insurance 03/16/2025 3:00 PM EDT Social Work [facility] at [address] [address] Becky Lisa MD 03/16/2025 1:00 PM EDT Office Visit [facility] At [address] [address] Becky Lisa MD Anal cancer (Primary Dx) 03/16/2025 Procedure Pass [facility] [address] [place] [address] 03/16/2025 Ancillary Orders [facility] [address] [place] [address] Castro Erazo MD 03/01/2025 Ancillary Orders [facility] [address] [place] [address] Unknown, MD Castro 02/12/2025 - 02/12/2025 11:59 PM EDT Hospital Encounter [facility] [address] [place] [address] Unknown, MD Castro Discharge Disposition: Home or Self Care 02/06/2025 - 02/06/2025 11:59 PM EDT Hospital Encounter [facility] [address] [place] [address] Unknown, Castro, MD Discharge Disposition: Home or Self Care from Last 3 Months Family History Medical History Relation Comments Cancer Sister air bag curer Relation Status Comments Sister Social History Tobacco [...] Care Team (Late st Contact Info) Description 04/18/2025 3:00 PM EDT Treatment [facility] Rad Onc [address] [place] [address] Becky Lisa MD [address] [place] [address] [email or web address] 04/19/2025 3:00 PM EDT Treatment [facility] Rad Onc [address] [place] [address] Becky Lisa MD [address] [place] [address] [email or web address] 04/19/2025 3:20 PM EDT Procedure visit [facility] Rad Onc [address] [place] [address] Becky Lisa MD [address] [place] [address] [email or web address] 04/20/2025 3:10 PM EDT Treatment [facility] Rad Onc [address] [place] [address] Becky Lisa MD [address] [place] [address] [email or web address] 04/23/2025 3:00 PM EDT Treatment [facility] Rad Onc [address] [place] [address] Becky Lisa MD [address] [place] [address] [email or web address] 04/24/2025 3:00 PM EDT Treatment [facility] Rad Onc [address] [place] [address] Becky Lisa MD [address] [place] [address] [email or web address] 04/25/2025 3:00 PM EDT Treatment [facility] Rad Onc [address] [place] [address] Becky Lisa MD [address] [place] [address] [email or web address] 04/26/2025 2:50 PM EDT Treatment [facility] Rad Onc [address] [place] [address] Becky Lisa MD [address] [place] [address] [email or web address] 04/26/2025 3:10 PM EDT Procedure visit [facility] Rad Onc [address] [place] [address] Becky Lisa MD [address] [place] [address] [email or web address] 04/27/2025 3:00 PM EDT Treatment [facility] Rad Onc [address] [place] [address] Becky Lisa MD [address] [place] [address] [email or web address] 04/30/2025 3:00 PM EDT Treatment [facility] Rad Onc [address] [place] [address] Becky Lisa MD [address] [place] [address] [email or web address] 05/01/2025 3:00 PM EDT Treatment [facility] Rad Onc [address] [place] [address] Becky Lisa MD [address] [place] [address] [email or web address] 05/02/2025 3:00 PM EDT Treatment [facility] Rad Onc [address] [place] [address] Becky Lisa MD [address] [place] [address] [email or web address] 05/03/2025 3:00 PM EDT Treatment [facility] Rad Onc [address] [place] [address] Becky Lisa MD [address] [place] [address] [email or web address] 05/03/2025 3:20 PM EDT Procedure visit [facility] Rad Onc [address] [place] [address] Becky Lisa MD [address] [place] [address] [email or web address] 05/04/2025 3:00 PM EDT Treatment [facility] Rad Onc [address] [place] [address] Becky Lisa MD [address] [place] [address] [email or web address] 05/07/2025 3:00 PM EST Treatment [facility] Rad Onc [address] [place] [address] Becky Lisa MD [address] [place] [address] [email or web address] 05/08/2025 2:40 PM EST Treatment [facility] Rad Onc [address] [place] [address] Becky Lisa MD [address] [place] [address] [email or web address] 05/09/2025 2:40 PM EST Treatment [facility] Rad Onc [address] [place] [address] Becky Lisa MD [address] [place] [address] [email or web address] 05/10/2025 2:40 PM EST Treatment [facility] Rad Onc [address] [place] [address] Becky Lisa MD [address] [place] [address] [email or web address] 05/10/2025 3:20 PM EST Procedure visit [facility] Rad Onc [address] [place] [address] Becky Lisa MD [address] [place] [address] [email or web address] 05/11/2025 2:40 PM EST Treatment [facility] Rad Onc [address] [place] [address] Becky Lisa MD [address] [place] [address] [email or web address] 05/14/2025 2:40 PM EST Treatment [facility] Rad Onc [address] [place] [address] Becky Lisa MD [address] [place] [address] [email or web address] 05/15/2025 2:40 PM EST Treatment [facility] Rad Onc [address] [place] [address] Becky Lisa MD [address] [place] [address] [email or web address] 05/16/2025 2:50 PM EST Treatment [facility] Rad Onc [address] [place] [address] Becky Lisa MD [address] [place] [address] [email or web address] 05/17/2025 2:40 PM EST Treatment [facility] Rad Onc [address] [place] [address] 46619 Becky Lisa MD [address] [place] [address] [email or web address] 05/17/2025 3:20 PM EST Procedure visit [facility] Rad Onc [address] [place] [address]65 Becky Lisa MD [address] [place] [address] 320[address] [email or web address] 05/18/2025 2:40 PM EST Treatment [facility] Rad Onc [address] [place] [address] 88886 Becky Lisa MD [address] [place] [address] [email or web address] 05/21/2025 2:40 PM EST Treatment [facility] Rad Onc [address] [place] [address] 37899 Becky Lisa MD [address] [place] [address] [email or web address] 05/22/2025 2:40 PM EST Treatment [facility] Rad Onc [address] [place] [address] 31789 Becky Lisa MD [address] [place] [address] 88899 [email or web address] 05/23/2025 2:40 PM EST Treatment [facility] Rad Onc [address] [place] [address] 22521 Becky Lisa MD [address] [place] [address] 29[address] [email or web address] 05/24/2025 2:40 PM EST Treatment [facility] Rad Onc [address] [place] [address] 11990 Becky Lisa MD [address] [place] [address] 615[address] [email or web address] 05/24/2025 3:20 PM EST Procedure visit [facility] Rad Onc [address] [place] [address] Becky Lisa MD [address] [place] [address] 455[address] [email or web address] 05/25/2025 2:40 PM EST Treatment [facility] Rad Onc [address] [place] [address] Becky Lisa MD [address] [place] [address]120 [email or web address] 05/28/2025 2:40 PM EST Treatment [facility] Rad Onc [address] [place] [address] 367[address] Becky Lisa MD [address] [place] [address] 21566 [email or web address] Health Maintenance Due Date Last Done [...] INFLUENZA VACCINE (#1) 2025 04/28/2015 COVID-19 VACCINE (1 - 2024-2 6 season) 2025 RSV VACCINE [...] clinician's provided indication for this examination in [facility]: * Anal carcinoma, initial workup; PET CT done at [facility] with large anal mass, mesorectal LN and [...] clinician's provided indication for this examination in [facility]: *Anal carcinoma, initial workup; PET CT done at [facility] with large anal mass,mesorectal LN and indeterminate [...] and not for interpretation. us Unknown Unknown IMG OUTSIDE IMAGING W/OUT INT ERPRETATION Final Result * NM PET Whole Body Outside (No Interpretation) (02/06/2025 12:00 AM EDT) Narrative Record, 03/01/2025 4:23 PM EDT This study is for PACS storage only and not for interpretation. Procedure Note Record, 03/01/2025 This study is for PACS storage only and not for interpretation. us Unknown Unknown IMG OUTSIDE IMAGING W/OUT INT ERPRETATION Final Result from Last 3 Months Insurance [facility] MEDICARE REPLACEMENT [facility] MEDICARE PART A & B [facility] MEDICARE [facility]PLACEMENT [facility] & [place] [address] [place] [address] MEDICARE REPLACEMENT [facility] & B [facility] MEDICARE [facility]PLACEMENT [facility] MEDICARE PART A & B [facility] MEDICARE [facility]PLACEMENT [facility] MEDICARE PART A & B [facility] MEDICARE REPLACEMENT [facility] MEDICARE PART A & B Care Teams Senior Oracle Developer Relationship Specialty Start Date End Date Katlin Otero MD [address] [place] [address] Drive [address] [place] [id number] PCP - General Internal Medicine 02/13/25 Additional Source Comments The information contained in this document represents components of the legal health record. It is not the complete legal health record.[facility]
--- OUTSIDE RECORDS SUMMARY | 2025-04-17 15:26 | XMS_ITS | Clinical Summary ---
Author Organization [facility] Address [address] [place] [address] Phone Care Team Providers Care Material Distributor Name Role Phone Unavailable Primary Care Provider Unavailabl e Encounters Date Type Department Care Team Description 02/06/2025 11:23 AM EDT - 02/06/2025 11:59 PM EDT Hospital Encounter 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 Hematology Oncology [address] [place] [address] Nikos Keane MD from Last [...] PM EDT Squamous cell carcinoma of anus ([facility] V24, [facility] V28) from Last 3 Months Results [...] Signed Date: 02/12/2025 06:00 ET Workstation ID: [id number] Transcribed By: Self Edit Transcribed Date: 02/12/2025 [...] Signed Date: 02/12/2025 06:00 ET Workstation ID: [id number] Transcribed By: Self Edit Transcribed Date: 02/12/2025 05:26 ET Amalia Dodson MD IMG NM PROCEDURES Final Result from Last 3 Months Insurance [employer] MEDICARE
--- OUTSIDE RECORDS SUMMARY | 2025-04-17 15:26 | XMS_ITS | Encounter Summary ---
Author Organization [facility] Address [address] [place] [address] [address] [place] [phone] Phone Care Team Providers Care Charging Car Operator Name Role Phone Katlin Otero MD Primary Care Provider [phone] Encounter Details Date Type Department Care Team (Late Contact Info) Description 04/10/2025 Procedure Pass [facility] Cardiovascular And Interventional Radiology [address] [place] [address] Social History Tobacco Use Types Packs/Day Years [...] Info) Description 04/18/2025 3:00 PM EDT Treatment [facility] Rad Onc [address] [place] [address] Becky Lisa MD [address] [place] [address] [email or web address] 04/19/2025 3:00 PM EDT Treatment [facility] Rad Onc [address] [place] [address] Becky Lisa MD [address] [place] [phone] [email or web address] 04/19/2025 3:20 PM EDT Procedure visit [facility] Rad Onc [address] [place] [address] Becky Lisa MD [address] [place] [phone] [email or web address] 04/20/2025 3:10 PM EDT Treatment [facility] Rad Onc [address] [place] [address] Becky Lisa MD [address] [place] [phone] [email or web address] 04/23/2025 3:00 PM EDT Treatment [facility] Rad Onc [address] [place] [phone] Becky Lisa MD [address] [place] [phone] [email or web address] 04/24/2025 3:00 PM EDT Treatment [facility] Rad Onc [address] [place] [address] Becky Lisa MD [address] [place] [phone] [email or web address] 04/25/2025 3:00 PM EDT Treatment [facility] Rad Onc [address] [place] [address] Becky Lisa MD [address] [place] [phone] [email or web address] 04/26/2025 2:50 PM EDT Treatment [facility] Rad Onc [address] [place] [phone] Becky Lisa MD [address] [place] [phone] [email or web address] 04/26/2025 3:10 PM EDT Procedure visit [facility] Rad Onc [address] [place] [address] Becky Lisa MD [address] [place] [address] [phone] [email or web address] 04/27/2025 3:00 PM EDT Treatment [facility] Rad Onc [address] [place] [address] Becky Lisa MD [address] [place] [phone] [email or web address] 04/30/2025 3:00 PM EDT Treatment [facility] Rad Onc [address] [place] [address] Becky Lisa MD [address] [place] [address] [phone] [email or web address] 05/01/2025 3:00 PM EDT Treatment [facility] Rad Onc [address] [place] [address] Becky Lisa MD [address] [place] [phone] [email or web address] 05/02/2025 3:00 PM EDT Treatment [facility] Rad Onc [address] [place] [phone] Becky Lisa MD [address] [place] [phone] [email or web address] 05/03/2025 3:00 PM EDT Treatment [facility] Rad [address] [address] Becky Lisa MD [address] [place] [address] [phone] [email or web address] 05/03/2025 3:20 PM EDT Procedure visit [facility] Rad Onc [address] [place] [address] Becky Lisa MD [address] [place] [phone] [email or web address] 05/04/2025 3:00 PM EDT Treatment [facility] Rad Onc [address] [place] [address] Becky Lisa MD [address] [place] [phone] [email or web address] 05/07/2025 3:00 PM EST Treatment [facility] Rad Onc [address] [place] [address] Becky Lisa MD [address] [place] [address] [phone] [email or web address] 05/08/2025 2:40 PM EST Treatment [facility] Rad Onc [address] [place] [address] Becky Lisa MD [address] [place] [address] [phone] [email or web address] 05/09/2025 2:40 PM EST Treatment [facility] Rad Onc [address] [place] [address] Becky Lisa MD [address] [place] [address] [phone] [email or web address] 05/10/2025 2:40 PM EST Treatment [facility] Rad Onc [address] [place] [address] 08183 Becky Lisa MD [address] [place] [phone] [email or web address] 05/10/2025 3:20 PM EST Procedure visit [facility] Rad Onc [address] [place] [address] 69[address] Becky Lisa MD [address] [place] [address] 60411 [email or web address] 05/11/2025 2:40 PM EST Treatment [facility] Rad Onc [address] [place] [address] Becky Lisa MD [address] [place] [phone] [email or web address] 05/14/2025 2:40 PM EST Treatment [facility] Rad Onc [address] [place] [address] 65807 Becky Lisa MD [address] [place] [phone] [email or web address] 05/15/2025 2:40 PM EST Treatment [facility] Rad Onc [address] [place] [address] 40746 Becky Lisa MD [address] [place] [address] [phone] [email or web address] 05/16/2025 2:50 PM EST Treatment [facility] Rad Onc [address] [place] [address] 29[address] Becky Lisa MD [address] [place] [phone] [email or web address] 05/17/2025 2:40 PM EST Treatment [facility] Rad Onc [address] [place] [address] 42065 Becky Lisa MD [address] [place] [address] [phone] [email or web address] 05/17/2025 3:20 PM EST Procedure visit [facility] Rad Onc [address] [place] [address] 8[address] Becky Lisa MD [address] [place] [address] 65581 [email or web address] 05/18/2025 2:40 PM EST Treatment [facility] Rad Onc [address] [place] [address] Becky Lisa MD [address] [place] [address] [phone] [email or web address] 05/21/2025 2:40 PM EST Treatment [facility] Rad Onc [address] [place] [address] Becky Lisa MD [address] [place] [address] [phone] [email or web address] 05/22/2025 2:40 PM EST Treatment [facility] Rad Onc [address] [place] [address] 24620 Becky Lisa MD [address] [place] [address] [phone] [email or web address] 05/23/2025 2:40 PM EST Treatment [facility] Rad Onc [address] [place] [address] Becky Lisa MD [address] [place] [address] [phone] [email or web address] 05/24/2025 2:40 PM EST Treatment [facility] Rad Onc [address] [place] [address] 15471 Becky Lisa MD [address] [place] [address] [phone] [email or web address] 05/24/2025 3:20 PM EST Procedure visit [facility] Rad Onc [address] [place] [address] Becky Lisa MD [address] [place] [address] [phone] [email or web address] 05/25/2025 2:40 PM EST Treatment [facility] Rad Onc [address] [place] [address] Becky Lisa MD [address] [place] [address] [phone] [email or web address] 05/28/2025 2:40 PM EST Treatment [facility] Rad Onc [address] [place] [address] Becky Lisa MD [address] [place] [address] [phone] [email or web address] documented as of this encounter Visit Diagnoses Not on filedocumented in this encounter Care Teams Charging Car Operator Relationship Specialty Start Date End Date Katlin Otero MD [address] [place] [phone] PCP - General Internal Medicine 02/13/25 documented as of this encounter Additional Source Comments The information contained in this document represents components of the legal health record. It is not the complete legal health record.[facility]
--- NOTE | 2025-04-17 15:42 | P.HPHOSP_ITS ---
History of Present Illness Date of Service: 04/17/25 Chief Complaint: Fall, weakness 69-year-old woman with a history of anal squamous cell carcinoma following with [facility] presents to the ER for evaluation of diarrhea, dizziness and abnormal labs. She was noted to have a decreased hemoglobin and hematocrit and magnesium as reported by her primary care provider. Apparently she has also had some dizziness with standing for the last week. She denied chest pain, shortness breath, nausea, vomiting. Apparently she fell in the shower 3 days ago but she denied any loss of consciousness or injury to her head. She was having some diarrhea and noted some bright red blood in the toilet. She does take pain medication for the anal pain. She is not currently started any treatments with Oncology yet as the workup is still ongoing. Her potassium was noted to be mildly elevated at 5.2, hemoglobin 8.4, hematocrit 27.2, creatinine 3.53 and 2.99, magnesium 1.3. 1 unit of packed red blood cells was ordered along with IV magnesium. She will be admitted for further management and treatment of acute iron-deficiency anemia with GI bleed. Review of Systems 2 Review of Systems: Denies any recent fever chills or decrease in appetite respiratory denies any shortness of breath or cough cardiovascular denied chest pain gastrointestinal denies any dysphagia abdominal pain nausea vomiting or diarrhea genitourinary denies any dysuria frequency or hematuria musculoskeletal denies any joint pain or swelling neuropsych denies any weakness or seizures all other systems reviewed are negative [facility] Medical History Mass of anus Breast cancer screening by mammogram Insomnia Carpal tunnel syndrome Anxiety and depression Osteoarthritis Tobacco abuse Hypercholesterolemia Peripheral arterial disease Obesity (BMI 30-39.9) Gastroesophageal reflux disease Coronary artery disease Hypertension Obstructive sleep apnea Family History Father No problems noted. Mother Diabetes mellitus HTN (hypertension) Stroke Brother No problems noted. Brother No problems noted. Brother No problems noted. Brother No problems noted. Brother No problems noted. Brother No problems noted. Sister Cancer Sister No problems noted. Daughter No problems noted. Daughter No problems noted. Daughter No problems noted. Surgical History Status post insertion of drug-eluting stent into right coronary artery for coronary artery disease S/P breast biopsy, left History of knee replacement procedure of left knee History of tubal ligation Social History Housing: Apartment Alcohol intake: current Alcohol intake frequency: holidays/special occasions only Comment: QOD 5 drinks Patient Tobacco Use Status: Former Tobacco user Tobacco use type: Cigarette Cigarette Packs Per Day: 0.5 Years Smoked: started 20 years old Smoked in Last 30 Days: No e-Cigarette/Vaping Use: Never Used Second Hand Smoke Exposure: Yes Use of substances other than those prescribed or required for medical reasons: No Advance Directives: No Advance Directives Information Provided: Yes Do you have a plan to hurt others: No Plan service: No Current occupational status: unemployed Cognitive needs: Yes (walker) Hearing needs: No Vision needs: No Meds Allergies Allergy/AdvReac Type Severity Reaction Status Date / Time codeine (Codeine) Allergy Intermediate VOMITING/RA Verified 04/17/25 10:22 SH fenofibrate Allergy Unknown Unknown Verified 04/17/25 10:22 hydrocodone (From Vicodin) Allergy Unknown Unknown Verified 04/17/25 10:22 tramadol AdvReac Intermediate palpitation Verified 04/17/25 10:22 s Active Medications: Current Medications Acetaminophen (Acetaminophen 325 Mg Tablet) 650 mg PO Q6H PRN PRN Reason: Pain, Mild 1-3,fever,headache Calcium Carbonate (Calcium Carbonate 750 Mg Tab.Chew) 750 mg PO Q4H PRN PRN Reason: Heartburn Iron Sucrose 100 mg/ Sodium (Chloride) 55 mls @ 220 mls/hr IV DAILY@1700 [facility] Stop: 04/20/25 16:59 Magnesium Hydroxide (Milk Of Magnesia 30 Ml Oral.Susp) 30 ml PO DAILY PRN PRN Reason: Constipation Melatonin (Melatonin 3 Mg Tablet) 6 mg PO BEDTIME PRN PRN Reason: Insomnia Ondansetron HCl (Ondansetron Hcl 4 Mg/2 Ml Vial) 4 mg IVPUSH Q8H PRN PRN Reason: Nausea and Vomiting Sodium Chloride (0.9 % Sodium Chloride Flush 3 Ml Syringe) 3 ml IVFLUSH QSHIFT [facility] Physical Exam 2 Vital Signs and Narrative: Vital Signs: Last Vital Signs Temp 97.5 F 04/17/25 15:28 Pulse 71 04/17/25 15:28 Resp 20 04/17/25 15:28 BP 99/44 L 04/17/25 15:28 Pulse Ox 99 04/17/25 14:52 O2 Del Method Room Air 04/17/25 14:52 BMI result Body Mass Index 30.3 Appearing in no acute distress head is normocephalic atraumatic eyes pupils are PERRLA sclera is anicteric mouth throat mucous membranes are intact and moist neck is supple no lymphadenopathy, no JVD noted lung sounds are clear to auscultation heart regular rate rhythm, clear S1, S2 positive bowel sounds, abdomen is soft, nontender neuro patient is alert x3, no focal deficits Results Labs 04/17/25 11:14 04/17/25 11:14 Labs: Laboratory Results - last 24 hr 04/17/25 11:14 MCV 80.2 MCH 24.8 L MCHC 30.9 L RDW 16.6 H Plt Count 390 MPV 9.8 Immature Gran % (Auto) 0.8 H Neut % (Auto) 80.3 H Lymph % (Auto) 7.6 L Coles % (Auto) 10.1 Eos % (Auto) 0.7 Baso % (Auto) 0.5 Lymph # (Auto) 0.9 L Coles # (Auto) 1.2 Eos # (Auto) 0.1 Baso # (Auto) 0.1 Abs Immat Gran (auto) 0.09 H Absolute Neuts (auto) 9.6 H Absolute Nucleated RBC 0.000 Nucleated RBC % (auto) 0.0 PT 14.0 H INR 1.2 H Anion Gap 18 Estim Creat Clear Calc 15.9 Estimated GFR 16 Random Glucose 105 Calcium 9.4 Magnesium 1.3 L* Total Bilirubin 0.4 AST 34 H ALT 12 Alkaline Phosphatase 157 H Total Protein 6.9 Albumin 3.3 L Blood Type A Positive Antibody Screen NEGATIVE Crossmatch See Detail Assessment and Plan (1) Anxiety and depression: Status: Acute Plan 69 year old women with anal squamous cell carcinoma currently under the care of [facility] onc[facility]. Symptomatic iron-deficiency anemia , GI bleed Noted bright red blood after a bowel movement today Hemoglobin 8.4/hematocrit 27.2 Iron 11 Iron infusion x3 days Hematology consultation 1 unit of packed red blood cells ordered NAREN. Likely poor p.o. intake Last creatinine 7/24/25 0.84 Creatinine today 2.99 Gentle IV fluid hydration and blood transfusion Hypomagnesemia Magnesium 1.3 Repleted with IV magnesium Hyperkalemia Potassium 5.2, mild Monitor Mild hypotension with history of hypertension Patient reports weight loss recently Wall stopped amlodipine, lisinopril Monitor blood pressure Anal squamous cell carcinoma Follows with [facility], we will consult History of coronary artery disease Hold aspirin Hold beta-meryl for now and restart as blood pressure allows Continue statin GERD Continue PPI Mental health Continue home medications Obesity class 1. BMI 30.3 Discussed importance of weight management as this may be contributing to worsening of other comorbidities DVT prophylaxis with pneumatic compression boots secondary to anemia Full code Quality Stroke Does the patient have a stroke diagnosis?: No VTE Prior VTE?: No VTE Risk Level:: Medical - moderate - high VTE Device Contraindication: N/A - Device Ordered VTE Drug Contraindication: Treatment Not Indicated
--- NOTE | 2025-04-17 16:17 | PHA.MEDREC ---
Pharmacy Consult ? Medication Reconciliation Pharmacy has completed the medication reconciliation. Spoke to patient to confirm medication list. Per patient, she only takes alprazolam at bedtime prn sleep, she has NOT started taking the capecitabine yet, she no longer takes ibuprofen 600 mg and she confirmed she is still taking rosuvastatin 20 mg daily. Last dose of medications was about a week ago due to forgetfulness.
--- NOTE | 2025-04-17 18:17 | PC.NURSE ---
pharmacy notified for missing meds
--- NOTE | 2025-04-17 18:24 | PC.NURSE ---
pt having multiple episodes of diarrhea, hospitalist notified as pt requesting medication to help stop it.
[2025-04-17] MEDS: Sodium Bicarbonate 8.4% 150 MEQ in Dextrose 5 % 850 ML 100 MEQ IV (19:18)
--- NOTE | 2025-04-17 20:20 | PC.NURSE ---
Patient awake and alert, skin pale warm dry, resp even and non labored, speaking in full, clear sentences. patient incontinent of loose light brown stool. patient cleansed and assisted up to bedside commode, patient incontinent of more loose stool upon standing, samples sent to lab per order. patient reports bladder pressure and unable to urinate when up to commode, nuclear plant instrument technician performed bladder scan w/ result of 482. Daughter Gricelda at bedside and expressing concern for patient needing an MRI r/t rectal tumor and enlarged lymph nodes.
[2025-04-17 20:31] LABS: OBS Int Ctl Valid YES; OBS1 NEGATIVE (NEGATIVE)
[2025-04-17 21:27] LABS: CDiff Gene PCR NEGATIVE (Negative)
--- NOTE | 2025-04-17 22:05 | PC.NURSE ---
straight cath completed by this RN w/ Rosio CASON tech present. patient tolerated procedure fair. urine sample obtained and sent to lab. patient c/o rectal pain, offered to assist patient to reposition off of her back, patient declined stating she can resposition herself. NSR via tele. awaiting bed assignmen for admission
[2025-04-17 22:28] LABS: Appearance Urine Cloudy; Glucose Urine UA Negative (Negative); PH 5.0 (5.0-9.0); Specific Gravity - Urine 1.010 (1.005-1.025)
[2025-04-18] VITALS (10 sets, daily range): BP systolic 100–121; BP diastolic 41–59; PULSE 67–87; RESP 10–20; TEMP 36.5–36.9; O2SAT 95–100
[2025-04-18] MEDS: oxyCODONE HCl Immed Release 5 MG TABLET PO (00:57)
[2025-04-18] MEDS: 0.9 % Sodium Chloride Flush 3 ML SYRINGE IVFLUSH ×3 (00:58→22:13)
[2025-04-18 02:03] LABS: MANUAL DIFF FLAG NO
[2025-04-18 02:05] LABS: Hematocrit 28.9 % (37.0-47.0); Hemoglobin 9.3 g/dl (12.0-16.0); Imm Gran Abs Auto 0.06 X10*3/uL (0.00-0.03); Imm Gran Pct Auto 0.5 % (0.0-0.4); Lymphocytes Absolute Auto 0.7 X10*3/uL (1.2-4.9); Mean Corpuscular HGB Conc 32.2 g/dl (31.0-35.0); Mean Corpuscular Hemoglobin 25.4 pg (27.0-33.0); Mean Corpuscular Volume 79.0 fL (80.0-98.0); NRBC Abs Auto 0.000 X10*3/uL (0.0-0.012); NRBC Pct Auto 0.0 /100WBC (0.0-0.2); Platelet Count 341 X10*3/uL (160-400); Red Blood Count 3.66 X10*6/uL (4.20-5.50); White Blood Count 11.4 X10*3/uL (4.8-10.8)
[2025-04-18] MEDS: Phytonadione (Vit K1) Oral 10 MG/ML AMPUL PO (02:57)
--- NOTE | 2025-04-18 04:31 | PC.NURSE ---
patient noted to have additional BM, patient was wiping when she started having bleeding of bright red blood. blood noted to be coming from tumor/growth on rectum. patient cleaned up, inpatient provider notified. patient now back in bed, repositioned.
--- NOTE | 2025-04-18 05:17 | PM.EVENT ---
Event Note Date of Service: 04/18/25 Event Note: Contacted to notify that patient has had at least 2 episodes of bright rectal bleeding with bowel movements. RN thinks that the blood is coming from the anal tumor and sent me the picture below. CBC stat obtained and H&H seems to be stable. INR/PTT elevated. Vitamin K given. Monitor H&H every 4 hours, obtain abdominopelvic CT scan (unfortunately without IV contrast as the patient has NAREN) and GI consult. Time Spent With Patient Time: Total time managing care of this patient today ____ minutes.
[2025-04-18 05:28] LABS: Hematocrit 27.8 % (37.0-47.0); Hemoglobin 8.8 g/dl (12.0-16.0); Mean Corpuscular HGB Conc 31.7 g/dl (31.0-35.0); Mean Corpuscular Hemoglobin 25.1 pg (27.0-33.0); Mean Corpuscular Volume 79.2 fL (80.0-98.0); NRBC Abs Auto 0.000 X10*3/uL (0.0-0.012); NRBC Pct Auto 0.0 /100WBC (0.0-0.2); Platelet Count 339 X10*3/uL (160-400); Red Blood Count 3.51 X10*6/uL (4.20-5.50); White Blood Count 10.1 X10*3/uL (4.8-10.8)
[2025-04-18 05:52] LABS: Alanine Aminotransferase 14 U/L (0-31); Albumin Level 2.8 g/dL (3.5-5.0); Alkaline Phosphatase 157 U/L (39-117); Anion Gap 17 (12-20); Aspartate Amino Transferase 42 U/L (5-31); Blood Urea Nitrogen 49 mg/dL (9-16); Calcium 9.1 mg/dL (8.4-10.2); Carbon Dioxide 20 mmol/L (22-29); Chloride 108 mmol/L (96-108); Creatinine Clr Calc Pharmacy 20.5; Estimated Glomerular Filt Rate 21; Magnesium 1.8 mg/dL (1.6-2.6); Potassium 4.9 mmol/L (3.3-5.1); Sodium 140 mmol/L (135-145); Total Protein 6.0 g/dL (6.5-8.0)
--- NOTE | 2025-04-18 06:25 | PC.NURSE ---
inpatient provider requested patient get 1L NS bolus, bicarb gtt paused at this time for bolus. patient resting quietly.
--- NOTE | 2025-04-18 09:04 | PM.HEMONCCN ---
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 She presented with swelling in the anal region that she fell since August. She states that she could not get into see her PCP for a long time. She was finally referred to Dr. Bloom whom she saw in January 2025. She was found to have a large anal mass in the right side of the anal verge measuring at least 5 cm with areas of friability and skin breakdown. Biopsy of this revealed-squamous cell carcinoma, at least in-situ. Positive for P 16 Patient denies any risk factors for hepatitis or HIV. No history of any other cancers. She lives with her ex-. She has a history of [place] in 2014. She has peripheral arterial disease. She says she stopped smoking about 6 months ago. She drinks alcohol occasionally. She denies any history of cancers in herself previously or her family. Rest Room Attendant Utilized?: No - Sami Speaking HPI - Consult Narrative Narrative: Letha Duffy is a 69 year old female Review of Systems - Neurologic Reports as per HPI [facility] Medical History: Medical History (Last Reviewed 04/17/25 @ 13:41 by RADHA Doe) Anxiety and depression Breast cancer screening by mammogram Carpal tunnel syndrome Coronary artery disease Gastroesophageal reflux disease Hypercholesterolemia Hypertension Insomnia Mass of anus Obesity (BMI 30-39.9) Obstructive sleep apnea Osteoarthritis Peripheral arterial disease Tobacco abuse Family History: Family History (Last Reviewed 04/17/25 @ 13:41 by RADHA Doe) Father No problems noted. Mother Diabetes mellitus HTN (hypertension) Stroke Brother No problems noted. Brother No problems noted. Brother No problems noted. Brother No problems noted. Brother No problems noted. Brother No problems noted. Sister Cancer Sister No problems noted. Daughter No problems noted. Daughter No problems noted. Daughter No problems noted. Surgical History: Surgical History (Last Reviewed 04/17/25 @ 13:41 by RADHA Doe) History of knee replacement procedure of left knee History of tubal ligation S/P breast biopsy, left Status post insertion of drug-eluting stent into right coronary artery for coronary artery disease Social History: Social History (Last Reviewed 10/14/25 @ 13:41 by YE Doe Living Situation History: Housing: Apartment Alcohol History Details: 1. How often do you have a drink containing alcohol?: a. Never 3. How often do you have six or more drinks on one occasion?: a. Never AUDIT-C Alcohol total score: 0 Tobacco History: Patient Tobacco Use Status: Former Tobacco user Tobacco use type: Cigarette Cigarette Packs Per Day: 0.5 Years Smoked: started 20 years old Smoked in Last 30 Days: No Smoking End Date: 08/29/24 e-Cigarette/Vaping Use: Never Used Second Hand Smoke Exposure: Yes Substance Use History: Use of substances other than those prescribed or required for medical reasons: No Advance Directives: Advance Directives: No Advance Directives Information Provided: Yes Homicidal Assessment: Do you have a plan to hurt others: No Plan Occupation Assessmet: service: No Current occupational status: unemployed Home Medications and Allergies Current Medications: Current Medications Acetaminophen (Acetaminophen 325 Mg Tablet) 650 mg PO Q6H PRN PRN Reason: Pain, Mild 1-3,fever,headache Alprazolam (Alprazolam 0.25 Mg Tablet) 0.25 mg PO BEDTIME PRN PRN Reason: Sleep Atorvastatin Calcium (Atorvastatin Calcium 80 Mg Tablet) 80 mg PO DAILY [facility] Last Admin: 04/18/25 08:05 Dose: 80 mg Calcium Carbonate (Calcium Carbonate 750 Mg Tab.Chew) 750 mg PO Q4H PRN PRN Reason: Heartburn Ezetimibe (Ezetimibe 10 Mg Tablet) 10 mg PO DAILY [facility] Last Admin: 04/18/25 08:05 Dose: 10 mg Iron Sucrose 100 mg/ Sodium (Chloride) 55 mls @ 220 mls/hr IV DAILY@1700 [facility] Stop: 04/20/25 16:59 Last Infusion: 04/17/25 19:34 Dose: Infused Sodium Bicarbonate 150 meq/ (Dextrose) 1,000 mls @ 100 mls/hr IV .Q10H [facility] Last Infusion: 04/18/25 08:00 Dose: 100 mls/hr Magnesium Hydroxide (Milk Of Magnesia 30 Ml Oral.Susp) 30 ml PO DAILY PRN PRN Reason: Constipation Melatonin (Melatonin 3 Mg Tablet) 6 mg PO BEDTIME PRN PRN Reason: Insomnia Omeprazole (Omeprazole 20 Mg Capsule.Dr) 20 mg PO DAILY@0630 [facility] Last Admin: 04/18/25 08:05 Dose: 20 mg Ondansetron HCl (Ondansetron Hcl 4 Mg/2 Ml Vial) 4 mg IVPUSH Q8H PRN PRN Reason: Nausea and Vomiting Oxycodone HCl (Oxycodone Hcl Immed Release 5 Mg Tablet) 5 mg PO Q8H PRN PRN Reason: Pain (Scale Score 7-10) Last Admin: 04/18/25 00:57 Dose: 5 mg Sodium Chloride (0.9 % Sodium Chloride Flush 3 Ml Syringe) 3 ml IVFLUSH QSHIFT [facility] Last Admin: 04/18/25 08:01 Dose: 3 ml Zolpidem Tartrate (Zolpidem Tartrate 5 Mg Tablet) 5 mg PO BEDTIME PRN PRN Reason: Insomnia Home Medications ?Medication ?Instructions ?Recorded ?Confirmed ?Type alprazolam 0.25 mg tablet 0.25 mg PO BEDTIME PRN sleep 04/17/25 04/17/25 History Allergies Allergy/AdvReac Type Severity Reaction Status Date / Time codeine (Codeine) Allergy Intermediate VOMITING/RA Verified 04/17/25 10:22 SH fenofibrate Allergy Unknown Unknown Verified 04/17/25 10:22 hydrocodone (From Vicodin) Allergy Unknown Unknown Verified 04/17/25 10:22 tramadol AdvReac Intermediate palpitation Verified 04/17/25 10:22 s Physical Exam Vital signs: Vital Signs Temp 97.8 F 04/18/25 08:11 Pulse 77 04/18/25 08:11 Resp 12 04/18/25 08:11 BP 116/41 L 04/18/25 08:11 Pulse Ox 97 04/18/25 08:11 O2 Del Method Room Air 04/18/25 08:11 Intake & Output 04/17/25 04/18/25 04/18/25 18:59 06:59 18:59 Intake Total 500 / 1305 805 / 1305 1020 / 1020 Output Total 482 / 482 Balance 500 / 823 323 / 823 1020 / 1020 Urine Output (Average ml/kg/hr) 0.57 0.57 Intake: Intake (Blood Product) Amount 350 / 350 Red Blood Cells (E0336) Unit 350 / 350 [id number] Intake, IV Amount 150 / 955 805 / 955 1020 / 1020 0.9 % Sodium Chloride 1,000 ml 1000 / 1000 @ 999 mls/hr IV .Q1H1M [facility] Rx#: [id number] Acetaminophen 1,000 mg In 100 100 / 100 ml @ 400 mls/hr IV ONCE ONE Rx# :[id number] Iron Sucrose Complex 100 mg In 55 / 55 0.9 % Sodium Chloride 50 ml @ 220 mls/hr IV DAILY@1700 [facility] Rx #:[id number] Magnesium Sulfate/H2O 2 gm In 50 / 50 50 ml @ 150 mls/hr IV ONCE ONE Rx#:[id number] Sodium Bicarbonate 8.4% 150 meq 750 / 750 20 / 20 In Dextrose 5 % 850 ml @ 100 mls/hr IV .Q10H [facility] Rx#: [id number] Output: Output, Urine Amount 482 / 482 Other: Urine Color Yellow Weight 70.307 kg Weight 70.307 kg Hem/Onc Consult Result - Labs CBC & Chem 7: 04/18/25 10:07 04/18/25 05:10 Labs: Short CBC 04/17/25 04/18/25 04/18/25 Range/Units 11:14 02:01 05:10 WBC 11.9 H 11.4 H 10.1 (4.8-10.8) X10*3/uL Hgb 8.4 L 9.3 L 8.8 L (12.0-16.0) g/dl Hct 27.2 L 28.9 L 27.8 L (37.0-47.0) % Plt Count 390 341 339 (160-400) X10*3/uL BMP 04/17/25 04/18/25 11:14 05:10 Sodium 134 L 140 Potassium 5.2 H 4.9 Chloride 108 108 Carbon Dioxide 13 L 20 L BUN 54 H 49 H Creatinine 2.99 H 2.33 H Calcium 9.4 9.1 Liver Function 04/17/25 04/18/25 Range/Units 11:14 05:10 Total Bilirubin 0.4 0.6 (0.0-1.0) mg/dL AST 34 H 42 H (5-31) U/L ALT 12 14 (0-31) U/L Alkaline Phosphatase 157 H 157 H (39-117) U/L Albumin 3.3 L 2.8 L (3.5-5.0) g/dL Urine 04/17/25 Range/Units 22:11 Urine Color Yellow Urine Appearance Cloudy Urine pH 5.0 (5.0-9.0) Ur Specific [place] 1.010 (1.005-1.025) Urine Protein Trace (Neg-Trace) mg/dL Urine Glucose (UA) Negative (Negative) mg/dL Assessment and Plan Patient Active problem list reviewed?: Yes (1) Anal squamous cell carcinoma Problem details: January 2025Squamous cell carcinoma, at least in-situ. Status: Chronic Assessment and plan: 1. This is a 69-year-old woman diagnosed with anal squamous cell carcinoma in January 2025. She presented with large mass at the anal verge measuring up to 5-7 cm, biopsy revealed squamous cell carcinoma, positive for P 16. PET-CT performed at [facility] on 02/06/2025 shows FDG avid anal mass, SUV max of 23.7. FDG avid mesorectal lymph node in the left measuring 7 mm with SUV max of 3, nonenlarged bilateral inguinal lymph nodes SUV max of 3 on the left and 4.6 on the right. Nonspecific activity in cecum and ascending colon, nonspecific thickening of gastric fundal and body wall SUV max of 4.5. No significant FDG avid abdominal lymphadenopathy. CT abdomen/pelvis with IV contrast performed in February 2025 showed a 6.6 x 2.9 x 4.4 cm mass in the posterior anal region. She was referred to radiation oncologist at [facility]. She was slated to start concurrent chemoradiation therapy on 04/17/25. Unfortunately, she has been admitted for acute renal insufficiency. She has had a recent fall and progressive weakness. She has had rectal bleeding. CT abdomen/pelvis without contrast shows a 6.8 x 8.2 x 3.2 cm exophytic mass extending from posterior margin of the anal region. Subcentimeter pulmonary nodules right lower lobe. For anemia she received 1 unit blood transfusion. Her creatinine is improving with IV hydration. Patient does not have a good social support system. She does not have any one to drive her to her oncology appointments and therefore her treatment planning has been delayed. Patient may have disease progression in the chest as well in view of new pulmonary nodules. I recommend CT chest without contrast. Consider placement in facility for her future oncological care and treatment. Thank you, will follow. - Time Spent With Patient Time Spent with Patient (in minutes): 20 Additional Coding: - Additional E/M codes Complex E/M visit Add On: CPT G2211
[2025-04-18 10:13] LABS: Hematocrit 28.7 % (37.0-47.0); Hemoglobin 9.1 g/dl (12.0-16.0)
[2025-04-18] MEDS: Sodium Bicarbonate 8.4% 150 MEQ in Dextrose 5 % 850 ML 100 MEQ IV (10:37)
--- NOTE | 2025-04-18 11:45 | MHC.CM.PN ---
IMM GIVEN 04/18. THIS CM MET WITH PT, DAUGHTER AND SPOUSE PRESENT AT BEDSIDE. PT LIVES AT HOME WITH HER SPOUSE, HE IS HER PRIMARY CAREGIVER. DME: WALKER, SHOWER CHAIR. NEW HCP COMPLETED WITH PT, NOW ON FILE. DCP: RETURN HOME WITH FAMILY SUPPORT, DAUGHTER TO TRANSPORT HER HOME. PCP: DR. ROSS PO
--- NOTE | 2025-04-18 14:31 | PC.NURSE ---
Pt lives at home. Alert and oriented x 4. Admitted for GI bleed. Bleed appears to be coming from tumor at rectum. She has had some bright blood with BM today. Commode is at bedside, pt is independent to commode. She recieved one unit red blood cells yesterday. Sodium bicarb running at 100mls through 20G in right forearm. I
--- NOTE | 2025-04-18 14:35 | HO.NURTONUR ---
Pt lives at home. Alert and oriented x 4. Admitted for GI bleed. Bleed appears to be coming from tumor at rectum. She has had some bright blood with BM today. Commode is at bedside, pt is independent to commode. She recieved one unit red blood cells yesterday. Sodium bicarb running at 100mls through 20G in right forearm. The bicarb has been delayed when it was paused for other other IV meds and a positional IV. Pt on room air. Expecting a visit from oncologist today.
[2025-04-18 15:06] LABS: Hematocrit 28.9 % (37.0-47.0); Hemoglobin 9.1 g/dl (12.0-16.0)
--- NOTE | 2025-04-18 15:25 | P.CONNP_ITS ---
History of Present Illness Reason for Consult Consult date: 04/18/25 Chief Complaint Chief complaint: symptomatic anemia History of Present Illness Narrative: 69-year-old lady with no past medical history of kidney disease, history of squamous cell carcinoma not on chemotherapy yet, history of anemia was sent into the ED due to low hemoglobin. Patient reports several episodes of diarrhea for the past few days and her oral intake has been poor. She presented with acute kidney injury possibly due to volume depletion, along with high anion gap metabolic acidosis started on sodium bicarbonate drip with which her acute kidney injury is improving. Review of Systems Review of Systems Const : no body aches, no chills, no excessive sweating and + fatigue Eyes: no blurry vision and no change in vision ENT: no bleeding gums and no change in voice, no dizziness Card: no chest pain, no shortness of breath, no orthopnea, no PND Resp: no cough, no excessive phlegm production, no SOB GI: + abdominal pain, + diarrhea : no hematuria, no urinary frequency and no difficulty voiding Musc: no abnormal gait, no bone pain Neuro: no abnormal movements, no weakness, no dizziness, no abnormal gait and no behavioral changes Psych: no behavioral changes and no change in appetite Endo: no change in body appearance PMFSH Past Medical History Medical History Mass of anus Breast cancer screening by mammogram Insomnia Carpal tunnel syndrome Anxiety and depression Osteoarthritis Tobacco abuse Hypercholesterolemia Peripheral arterial disease Obesity (BMI 30-39.9) Gastroesophageal reflux disease Coronary artery disease Hypertension Obstructive sleep apnea Family History Family History Father No problems noted. Mother Diabetes mellitus HTN (hypertension) Stroke Brother No problems noted. Brother No problems noted. Brother No problems noted. Brother No problems noted. Brother No problems noted. Brother No problems noted. Sister Cancer Sister No problems noted. Daughter No problems noted. Daughter No problems noted. Daughter No problems noted. Surgical History Surgical History Status post insertion of drug-eluting stent into right coronary artery for coronary artery disease S/P breast biopsy, left History of knee replacement procedure of left knee History of tubal ligation Social History Social History Housing: Apartment Alcohol intake: current Alcohol intake frequency: holidays/special occasions only Comment: QOD 5 drinks Patient Tobacco Use Status: Former Tobacco user Tobacco use type: Cigarette Cigarette Packs Per Day: 0.5 Years Smoked: started 20 years old Smoked in Last 30 Days: No e-Cigarette/Vaping Use: Never Used Second Hand Smoke Exposure: Yes Use of substances other than those prescribed or required for medical reasons: No Advance Directives: No Advance Directives Information Provided: Yes Do you have a plan to hurt others: No Plan service: No Current occupational status: unemployed Cognitive needs: Yes (walker) Hearing needs: No Vision needs: No Meds Allergies Allergy/AdvReac Type Severity Reaction Status Date / Time codeine (Codeine) Allergy Intermediate VOMITING/RA Verified 04/17/25 10:22 SH fenofibrate Allergy Unknown Unknown Verified 04/17/25 10:22 hydrocodone (From Vicodin) Allergy Unknown Unknown Verified 04/17/25 10:22 tramadol AdvReac Intermediate palpitation Verified 04/17/25 10:22 s Active Medications: Current Medications Acetaminophen (Acetaminophen 325 Mg Tablet) 650 mg PO Q6H PRN PRN Reason: Pain, Mild 1-3,fever,headache Alprazolam (Alprazolam 0.25 Mg Tablet) 0.25 mg PO BEDTIME PRN PRN Reason: Sleep Atorvastatin Calcium (Atorvastatin Calcium 80 Mg Tablet) 80 mg PO DAILY [facility] Last Admin: 04/18/25 08:05 Dose: 80 mg Calcium Carbonate (Calcium Carbonate 750 Mg Tab.Chew) 750 mg PO Q4H PRN PRN Reason: Heartburn Cyanocobalamin (Cyanocobalamin (Vitamin B-12) 100 Mcg Tablet) 100 mcg PO DAILY [facility] Last Admin: 04/18/25 14:11 Dose: 100 mcg Ezetimibe (Ezetimibe 10 Mg Tablet) 10 mg PO DAILY [facility] Last Admin: 04/18/25 08:05 Dose: 10 mg Folic Acid (Folic Acid 1 Mg Tablet) 1 mg PO DAILY [facility] Last Admin: 04/18/25 14:11 Dose: 1 mg Iron Sucrose 100 mg/ Sodium (Chloride) 55 mls @ 220 mls/hr IV DAILY@1700 [facility] Stop: 04/20/25 16:59 Last Infusion: 04/17/25 19:34 Dose: Infused Sodium Bicarbonate 150 meq/ (Dextrose) 1,000 mls @ 100 mls/hr IV .Q10H [facility] Last Admin: 04/18/25 14:31 Dose: Not Given Magnesium Hydroxide (Milk Of Magnesia 30 Ml Oral.Susp) 30 ml PO DAILY PRN PRN Reason: Constipation Melatonin (Melatonin 3 Mg Tablet) 6 mg PO BEDTIME PRN PRN Reason: Insomnia Omeprazole (Omeprazole 20 Mg Capsule.Dr) 20 mg PO DAILY@0630 [facility] Last Admin: 04/18/25 08:05 Dose: 20 mg Ondansetron HCl (Ondansetron Hcl 4 Mg/2 Ml Vial) 4 mg IVPUSH Q8H PRN PRN Reason: Nausea and Vomiting Oxycodone HCl (Oxycodone Hcl Immed Release 5 Mg Tablet) 5 mg PO Q8H PRN PRN Reason: Pain (Scale Score 7-10) Last Admin: 04/18/25 00:57 Dose: 5 mg Sodium Chloride (0.9 % Sodium Chloride Flush 3 Ml Syringe) 3 ml IVFLUSH QSHIFT [facility] Last Admin: 04/18/25 08:01 Dose: 3 ml Thiamine HCl (Thiamine Hcl 100 Mg Tablet) 100 mg PO DAILY [facility] Last Admin: 04/18/25 14:12 Dose: 100 mg Zolpidem Tartrate (Zolpidem Tartrate 5 Mg Tablet) 5 mg PO BEDTIME PRN PRN Reason: Insomnia Home Medications ?Medication ?Instructions ?Recorded ?Confirmed ?Last Taken ?Type alprazolam 0.25 mg tablet 0.25 mg PO BEDTIME PRN sleep 04/17/25 04/17/25 Unknown History Physical Exam Vital Signs: Last Vital Signs Temp 98.3 F 04/18/25 13:59 Pulse 73 04/18/25 13:59 Resp 15 04/18/25 13:59 BP 115/52 L 04/18/25 13:59 Pulse Ox 98 04/18/25 13:59 O2 Del Method Room Air 04/18/25 13:59 BMI result Body Mass Index 30.3 General: Not in acute distress, ill appearing and tired appearing Nutritional Appearance: well nourished and overweight Eyes: appearance normal, both eyes and all related structures; Alignment and Position: alignment normal and position normal Neck: No lymphadenopathy, no thyromegaly Resp: bilateral air entry equal, occasional added sounds present Cardio: Regular rate, regular rhythm; Heart sounds: S1 normal heart sound present and S2 normal heart sound present GI: soft, nontender, no guarding, no hepatosplenomegaly : bladder normal to inspection, bladder normal to palpation, no renal angle tenderness Skin: no rashes or lesions noted and elasticity normal Neuro: oriented to person, oriented to place, oriented to time and moves all extremities Results Lab Results 04/18/25 14:47 04/18/25 05:10 Lab results: Chemistry 04/17/25 04/18/25 11:14 05:10 Sodium 134 L 140 Potassium 5.2 H 4.9 Carbon Dioxide 13 L 20 L BUN 54 H 49 H Creatinine 2.99 H 2.33 H Calcium 9.4 9.1 Hematology 04/17/25 04/18/25 04/18/25 11:14 02:01 05:10 WBC 11.9 H 11.4 H 10.1 Hgb 8.4 L 9.3 L 8.8 L Plt Count 390 341 339 04/18/25 04/18/25 10:07 14:47 WBC Hgb 9.1 L 9.1 L Plt Count Urinalysis 04/17/25 22:11 Urine Color Yellow Urine Appearance Cloudy Urine pH 5.0 Ur Specific [place] 1.010 Urine Protein Trace Urine Glucose (UA) Negative Urine Ketones Negative Urine Blood Negative Urine Nitrite Negative Ur Leukocyte Esterase Negative Assessment and Plan (1) Acute kidney injury: Status: Acute (2) High anion gap metabolic acidosis: Status: Acute Plan Acute kidney injury: Patient has no history of kidney disease, presented with a creatinine of 2.9 and possibly secondary to volume depletion in the setting of LASHONDA-inhibitor due to multiple episodes of diarrhea and poor oral intake. We started the patient on sodium bicarbonate infusion yesterday and this morning creatinine is down trending, down to 2.33. Continue sodium bicarbonate, if the bicarb is about 20 tomorrow can switch to LR drip. States her diarrhea is better today Continue withholding ACEi even at discharge as patient has anal cancer and is at high risk for volume depletion. Can switch to calcium channel meryl if needed. High anion gap metabolic acidosis: Possibly secondary to renal failure Improving with sodium bicarbonate infusion. Procedures Date of Service Date of Service: 04/18/25
[2025-04-18 19:13] LABS: Hematocrit 27.9 % (37.0-47.0); Hemoglobin 9.2 g/dl (12.0-16.0)
--- NOTE | 2025-04-18 19:17 | PM.EVENT ---
Event Note Date of Service: 04/18/25 Event Note: patient seen today. Clinical impression from multifactorial etiology for clinical findings. The patient has suffered with full stool, diarrhea, poor p.o. intake for the past 1-2 weeks. She reports feeling dehydrated, and weaker than normal. Rectal carcinoma has been bleeding as well. Hemoglobin has been stable since admission to hospital. Suspect etiology of patient's clinical findings are related to failure to thrive, in the setting of diarrheal illness, undergoing investigation. Consequences of diarrheal illness have led to dehydration, hypomagnesemia, acute kidney injury ( prerenal ), syncopal collapse and shower in the setting of likely vasodilation and dehydration (vasovagal versus ortho static ) Further evaluation with echocardiography Hematology/oncology following, recommendations greatly appreciated Prerenal acute kidney injury leading to hyperkalemia -which is already improving after administration fluids Encourage p.o. intake Investigate diarrhea thoroughly for infectious etiology Time Spent With Patient Time: Total time managing care of this patient today 30 minutes.
[2025-04-19] MEDS: Sodium Bicarbonate 8.4% 150 MEQ in Dextrose 5 % 850 ML 100 MEQ IV ×2 (00:26→09:46)
[2025-04-19 03:05] VITALS: BP 126/61; PULSE 69; RESP 18; TEMP 36.6; O2SAT 98
[2025-04-19 06:49] LABS: MANUAL DIFF FLAG NO
[2025-04-19 06:53] LABS: Hematocrit 28.7 % (37.0-47.0); Hemoglobin 9.2 g/dl (12.0-16.0); Imm Gran Abs Auto 0.07 X10*3/uL (0.00-0.03); Imm Gran Pct Auto 0.7 % (0.0-0.4); Lymphocytes Absolute Auto 0.7 X10*3/uL (1.2-4.9); Mean Corpuscular HGB Conc 32.1 g/dl (31.0-35.0); Mean Corpuscular Hemoglobin 25.4 pg (27.0-33.0); Mean Corpuscular Volume 79.3 fL (80.0-98.0); NRBC Abs Auto 0.000 X10*3/uL (0.0-0.012); NRBC Pct Auto 0.0 /100WBC (0.0-0.2); Platelet Count 347 X10*3/uL (160-400); Red Blood Count 3.62 X10*6/uL (4.20-5.50); White Blood Count 9.7 X10*3/uL (4.8-10.8)
[2025-04-19 07:22] VITALS: BP 139/61; PULSE 79; RESP 18; TEMP 36.9; O2SAT 100
[2025-04-19 07:29] LABS: Alanine Aminotransferase 8 U/L (0-31); Albumin Level 2.8 g/dL (3.5-5.0); Alkaline Phosphatase 134 U/L (39-117); Anion Gap 14 (12-20); Aspartate Amino Transferase 25 U/L (5-31); Blood Urea Nitrogen 33 mg/dL (9-16); Calcium 8.8 mg/dL (8.4-10.2); Carbon Dioxide 30 mmol/L (22-29); Chloride 102 mmol/L (96-108); Creatinine Clr Calc Pharmacy 30.6; Estimated Glomerular Filt Rate 33; Potassium 4.6 mmol/L (3.3-5.1); Sodium 141 mmol/L (135-145); Total Protein 6.0 g/dL (6.5-8.0)
[2025-04-19 11:20] VITALS: BP 125/56; PULSE 109; RESP 18; TEMP 36.4; O2SAT 96
[2025-04-19 11:23] LABS: E. coli EAEC Not Detected (Not Detect.); E. coli EPEC Not Detected (Not Detect.); E. coli ETEC Not Detected (Not Detect.); E. coli STEC Not Detected (Not Detect.); Shigella sp./EIEC Not Detected (Not Detect.)
--- NOTE | 2025-04-19 11:23 | P.CDIM_ITS ---
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 Please review below and update the documentation accordingly. Clinical Indicators: H&P dated 04/17/25 - Patient will be admitted for further management and treatment of acute iron deficiency anemia with GI bleed. Red blood in the toilet, dizziness, decreased hemoglobin and hematocrit. Symptomatic iron deficiency anemia, GI bleed Iron 11 Iron infusion x 3days, 1 unit PRBC ordered. BP 99/44 L Based on the above, could you clarify which of the following is the most likely type of anemia you are evaluating, treating, and/or monitoring? Iron deficiency anemia secondary to chronic blood loss possible, probable, suspected, cannot rule out etc. Iron deficiency anemia secondary to acute on chronic blood loss possible, suspected, cannot rule out, probable etc. Acute blood loss anemia Other (explain) Clinically unable to determine (explain) Thank you, Emperatriz Marlow, CCS, CDIS Use of terms such as suspected, likely, concern for, or probable (associated with a specific diagnosis that is being evaluated, monitored, or treated as if it exists) are acceptable and can be coded in the inpatient setting, when documented at the time of discharge. Please use your independent medical judgment in providing your response. THIS QUERY IS PART OF THE PERMANENT MEDICAL RECORD
--- NOTE | 2025-04-19 11:54 | PM.PNNEP ---
Subjective Subjective Date of Service: 04/19/25 Interval history: States he is feeling better, diarrhea has almost stopped Renal function improving Physical Exam Vital Signs: Vital Signs: Last Vital Signs Temp 97.5 F 04/19/25 11:20 Pulse 109 H 04/19/25 11:20 Resp 18 04/19/25 11:20 BP 125/56 L 04/19/25 11:20 Pulse Ox 96 04/19/25 11:20 O2 Del Method Room Air 04/19/25 11:20 BMI result Body Mass Index 30.3 General: Not in any acute distress, ill appearing and tired appearing Nutritional Appearance: well nourished and overweight Eyes: appearance normal, both eyes and all related structures; Alignment and Position: alignment normal and position normal Neck: No lymphadenopathy, no thyromegaly Resp: bilateral air entry equal, occasional added sounds present Cardio: Regular rate, regular rhythm; Heart sounds: S1 normal heart sound present and S2 normal heart sound present GI: soft, nontender, no guarding, no hepatosplenomegaly : bladder normal to inspection, bladder normal to palpation, no renal angle tenderness Skin: no rashes or lesions noted and elasticity normal Neuro: oriented to person, oriented to place, oriented to time and moves all extremities Objective Data Labs 04/19/25 06:25 04/19/25 06:25 Labs: Laboratory Results - last 24 hr 04/17/25 04/18/25 04/18/25 20:14 14:47 18:09 WBC RBC Hgb 9.1 L 9.2 L Hct 28.9 L 27.9 L MCV MCH MCHC RDW Plt Count MPV Immature Gran % (Auto) Neut % (Auto) Lymph % (Auto) [place] % (Auto) Eos % (Auto) Baso % (Auto) Lymph # (Auto) [place] # (Auto) Eos # (Auto) Baso # (Auto) Abs Immat Gran (auto) Absolute Neuts (auto) Absolute Nucleated RBC Nucleated RBC % (auto) Sodium Potassium Chloride Carbon Dioxide Anion Gap BUN Creatinine Estim Creat Clear Calc Estimated GFR Random Glucose Calcium Total Bilirubin AST ALT Alkaline Phosphatase Total Protein Albumin Stl C. cayetanensis PCR Not Detected Stool Rotavirus A PCR Not Detected Stl Adenov F 40/41 PCR Not Detected Stool Astrovirus (PCR) Not Detected Stool Campylobacter PCR Not Detected Stool Cryptosporidium PCR Not Detected Stl Sh Tox Pr E STEC PCR Not Detected Stool E coli O157 PCR Not applicable Stl Enterotoxigenic E PCR Not Detected Stool EPEC (PCR) Not Detected Stool EAEC (PCR) Not Detected Stl E. histolytica PCR Not Detected Stool Giardia Lamblia PCR Not Detected Stl P. shigelloides PCR Not Detected Stool Salmonella PCR Not Detected Stool Sapovirus (PCR) Not Detected Stl Shigella/EIEC PCR Not Detected St Y.enterocolitica PCR Not Detected Stool Vibrio (PCR) Not Detected Stl Vibrio cholerae PCR Not Detected Stl Norovirus GI/GII PCR Not Detected 04/19/25 06:25 WBC 9.7 RBC 3.62 L Hgb 9.2 L Hct 28.7 L MCV 79.3 L MCH 25.4 L MCHC 32.1 RDW 16.3 H Plt Count 347 MPV 9.5 Immature Gran % (Auto) 0.7 H Neut % (Auto) 83.1 H Lymph % (Auto) 7.0 L [place] % (Auto) 8.1 Eos % (Auto) 0.8 Baso % (Auto) 0.3 Lymph # (Auto) 0.7 L [place] # (Auto) 0.8 Eos # (Auto) 0.1 Baso # (Auto) 0.0 Abs Immat Gran (auto) 0.07 H Absolute Neuts (auto) 8.0 Absolute Nucleated RBC 0.000 Nucleated RBC % (auto) 0.0 Sodium 141 Potassium 4.6 Chloride 102 Carbon Dioxide 30 H Anion Gap 14 BUN 33 H Creatinine 1.56 H Estim Creat Clear Calc 30.6 Estimated GFR 33 Random Glucose 114 Calcium 8.8 Total Bilirubin 0.3 AST 25 ALT 8 Alkaline Phosphatase 134 H Total Protein 6.0 L Albumin 2.8 L Stl C. cayetanensis PCR Stool Rotavirus A PCR Stl Adenov F 40/41 PCR Stool Astrovirus (PCR) Stool Campylobacter PCR Stool Cryptosporidium PCR Stl Sh Tox Pr E STEC PCR Stool E coli O157 PCR Stl Enterotoxigenic E PCR Stool EPEC (PCR) Stool EAEC (PCR) Stl E. histolytica PCR Stool Giardia Lamblia PCR Stl P. shigelloides PCR Stool Salmonella PCR Stool Sapovirus (PCR) Stl Shigella/EIEC PCR St Y.enterocolitica PCR Stool Vibrio (PCR) Stl Vibrio cholerae PCR Stl Norovirus GI/GII PCR Procedures Date of Service Date of Service: 04/19/25 Assessment & Plan Assessment and plan (1) Acute kidney injury: Status: Acute (2) High anion gap metabolic acidosis: Status: Acute Plan Acute kidney injury: Patient has no history of kidney disease, presented with a creatinine of 2.9 and possibly secondary to volume depletion in the setting of LASHONDA-inhibitor due to multiple episodes of diarrhea and poor oral intake. Creatinine improved, down to 1.56 this morning with IV fluid replacement. Asked her to increase her oral fluid intake more than what she poops. Since the bicarb increased to 30 stopped the sodium bicarbonate infusion this morning. States her diarrhea is better today Continue withholding ACEi even at discharge as patient has anal cancer and is at high risk for volume depletion. Can switch to calcium channel meryl if needed. High anion gap metabolic acidosis: Resolved Time Spent With Patient Time: Total time managing care of this patient today ____ minutes. Progress Note: Quality Stroke Does the patient have a stroke diagnosis?: No
[2025-04-19] MEDS: Lactated Ringers 1,000 ML 80 ML IVCONT (12:11)
--- NOTE | 2025-04-19 12:13 | HO.PM.IMPN ---
Subjective Subjective Date of Service: 04/19/25 Interval History: Feels much better today as compared to yesterday. The patient reports still some intermittent nausea and 1 episode of vomiting this morning after eating [place] toast. Presumed to be 2/2 Acidic apple juice that she had prior to eating. Otherwise, the patient denies abdominal pain discomfort, persistent nausea or vomiting, diarrhea. Diet has been improving Review of Systems Review of Systems: Yes all other systems are reviewed and are negative Physical Exam Exam: Exam: General: A&O x3, oriented to time place person and situation, comfortable, no pain Cardiac: S1, S2 auscultated with no S3/4, no MRG. Well perfused. Respiratory: Normal breath sounds auscultated throughout all lung zones, without wheezing, rales. Normal rate. GI/ : No abdominal pain on palpation, no masses or distentions. Large mass identified near the right medial gluteal cleft surrounding anus - some bleeding/ streaking from mass. MSK: Normal ambulation without pain at bony prominences or musculature Neurological: Normal neurological examination on overview, without obvious CN II-XII abnormalities. Vital Signs: Vital Signs: Last Vital Signs Temp 97.5 F 04/19/25 11:20 Pulse 109 H 04/19/25 11:20 Resp 18 04/19/25 11:20 BP 125/56 L 04/19/25 11:20 Pulse Ox 96 04/19/25 11:20 O2 Del Method Room Air 04/19/25 11:20 BMI result Body Mass Index 30.3 Objective Data Active Medications Acetaminophen (Acetaminophen 325 Mg Tablet) 650 mg PO Q6H PRN PRN Reason: Pain, Mild 1-3,fever,headache Last Admin: 04/19/25 12:11 Dose: 650 mg Documented By: JEREMÍAS Alprazolam (Alprazolam 0.25 Mg Tablet) 0.25 mg PO BEDTIME PRN PRN Reason: Sleep Last Admin: 04/18/25 22:13 Dose: 0.25 mg Documented By: MAHESH Atorvastatin Calcium (Atorvastatin Calcium 80 Mg Tablet) 80 mg PO DAILY BRIAN Last Admin: 04/19/25 08:20 Dose: 80 mg Documented By: JEREMÍAS Calcium Carbonate (Calcium Carbonate 750 Mg Tab.Chew) 750 mg PO Q4H PRN PRN Reason: Heartburn Cyanocobalamin (Cyanocobalamin (Vitamin B-12) 100 Mcg Tablet) 100 mcg PO DAILY [facility] Last Admin: 04/19/25 08:20 Dose: 100 mcg Documented By: JEREMÍAS Ezetimibe (Ezetimibe 10 Mg Tablet) 10 mg PO DAILY [facility] Last Admin: 04/19/25 08:20 Dose: 10 mg Documented By: JEREMÍAS Folic Acid (Folic Acid 1 Mg Tablet) 1 mg PO DAILY [facility] Last Admin: 04/19/25 08:20 Dose: 1 mg Documented By: JEREMÍAS Iron Sucrose 100 mg/ Sodium (Chloride) 55 mls @ 220 mls/hr IV DAILY@1700 [facility] Stop: 04/20/25 16:59 Last Infusion: 04/18/25 19:14 Dose: Infused Documented By: MAHESH Lactated Ringer's (Lr) 1,000 mls @ 80 mls/hr IVCONT .[id number] [facility] Last Admin: 04/19/25 12:11 Dose: 80 mls/hr Documented By: JEREMÍAS Magnesium Hydroxide (Milk Of Magnesia 30 Ml Oral.Susp) 30 ml PO DAILY PRN PRN Reason: Constipation Melatonin (Melatonin 3 Mg Tablet) 6 mg PO BEDTIME PRN PRN Reason: Insomnia Omeprazole (Omeprazole 20 Mg Capsule.Dr) 20 mg PO DAILY@0630 [facility] Last Admin: 04/19/25 06:04 Dose: 20 mg Documented By: MAHESH Ondansetron HCl (Ondansetron Hcl 4 Mg/2 Ml Vial) 4 mg IVPUSH Q8H PRN PRN Reason: Nausea and Vomiting Oxycodone HCl (Oxycodone Hcl Immed Release 5 Mg Tablet) 5 mg PO Q8H PRN PRN Reason: Pain (Scale Score 7-10) Last Admin: 04/18/25 00:57 Dose: 5 mg Documented By: JANINE Sodium Chloride (0.9 % Sodium Chloride Flush 3 Ml Syringe) 3 ml IVFLUSH QSHIFT [facility] Last Admin: 04/19/25 08:20 Dose: Not Given Documented By: JEREMÍAS Non-Admin Reason: IV Running Thiamine HCl (Thiamine Hcl 100 Mg Tablet) 100 mg PO DAILY [facility] Last Admin: 04/19/25 08:20 Dose: 100 mg Documented By: JEREMÍAS Zolpidem Tartrate (Zolpidem Tartrate 5 Mg Tablet) 5 mg PO BEDTIME PRN PRN Reason: Insomnia Labs 04/19/25 06:25 04/19/25 06:25 Labs: Laboratory Results - last 24 hr 04/17/25 04/19/25 20:14 06:25 MCV 79.3 L MCH 25.4 L MCHC 32.1 RDW 16.3 H Plt Count 347 MPV 9.5 Immature Gran % (Auto) 0.7 H Neut % (Auto) 83.1 H Lymph % (Auto) 7.0 L [place] % (Auto) 8.1 Eos % (Auto) 0.8 Baso % (Auto) 0.3 Lymph # (Auto) 0.7 L [place] # (Auto) 0.8 Eos # (Auto) 0.1 Baso # (Auto) 0.0 Abs Immat Gran (auto) 0.07 H Absolute Neuts (auto) 8.0 Absolute Nucleated RBC 0.000 Nucleated RBC % (auto) 0.0 Anion Gap 14 Estim Creat Clear Calc 30.6 Estimated GFR 33 Random Glucose 114 Calcium 8.8 Total Bilirubin 0.3 AST 25 ALT 8 Alkaline Phosphatase 134 H Total Protein 6.0 L Albumin 2.8 L Stl C. cayetanensis PCR Not Detected Stool Rotavirus A PCR Not Detected Stl Adenov F 40/41 PCR Not Detected Stool Astrovirus (PCR) Not Detected Stool Campylobacter PCR Not Detected Stool Cryptosporidium PCR Not Detected Stl Sh Tox Pr E STEC PCR Not Detected Stool E coli O157 PCR Not applicable Stl Enterotoxigenic E PCR Not Detected Stool EPEC (PCR) Not Detected Stool EAEC (PCR) Not Detected Stl E. histolytica PCR Not Detected Stool Giardia Lamblia PCR Not Detected Stl P. shigelloides PCR Not Detected Stool Salmonella PCR Not Detected Stool Sapovirus (PCR) Not Detected Stl Shigella/EIEC PCR Not Detected St Y.enterocolitica PCR Not Detected Stool Vibrio (PCR) Not Detected Stl Vibrio cholerae PCR Not Detected Stl Norovirus GI/GII PCR Not Detected Assessment and Plan (1) Alcohol abuse: Status: Acute (2) Hypertension: Status: Acute (3) Coronary artery disease: Status: Acute (4) Peripheral arterial disease: Status: Acute (5) Hypercholesterolemia: Status: Acute (6) Gastroesophageal reflux disease: Status: Acute (7) Fatty liver: Status: Acute (8) Mass of anus: Status: Acute (9) Acute kidney injury: Status: Acute (10) High anion gap metabolic acidosis: Status: Acute (11) UTI (urinary tract infection): Status: Acute (12) Anemia: Status: Acute (13) Anal squamous cell carcinoma: Status: Chronic (14) Tobacco abuse: Status: Acute (15) FTT (failure to thrive) in adult: Status: Acute (16) Hyperkalemia: Status: Acute (17) Hypomagnesemia: Status: Acute (18) Viral diarrhea: Status: Acute (19) Functional diarrhea: Status: Acute Plan 69-year-old female, with past medical history of anal squamous cell carcinoma following Oncology, CAD, HTN, ETOH abuse, NAFLD, osteopenia, tobacco abuse, presents with diarrhea for 1-2 weeks, dizziness and collapse in the shower, admitted with syncope 2/2 dehydration and failure to thrive, c/b acute on chronic iron-deficiency anemia and blood loss anemia from anal cancer, and severe prerenal acute kidney injury with hyperkalemia, and electrolyte deficiencies. Failure to thrive Diarrhea; possible viral or functional Dehydration Prerenal acute kidney injury - Hyperkalemia - Hypomagnesemia Patient's diarrhea may have been triggered by the anal squamous cell carcinoma, versus from an acute viral illness. Regardless, currently patient's diarrhea has resolved. She presented with an element of failure to thrive in the setting of unable intake p.o. fluid or food for 1-2 weeks This led to dehydration and prerenal acute kidney injury; along with hyperkalemia. Patient also has hypomagnesemia in setting of poor p.o. intake. Received IVF in emergency room and on medical floor, with significant improvement in creatinine from 3.5,-improving to baseline of 0.8 Renal was consulted-recommendations greatly appreciated Continue IVF Thiamine 100 mg OD p.o. Folic acid 1 mg OD p.o. Cyanocobalamin 100 mg OD p.o. Syncope-orthostatic hypotension vs vasovagal CAD Syncopal event as contributed by multiple different factors. Failure to thrive diarrhea and dehydration being the 1st, further precipitated by progressive anemia 2/2 loss from Anal cancer./ The patient collapsed in the shower - orthostatic hypotension is likely causative etiology for patient's syncopal event Patient has a history of CAD, however no changes on ECG that are concerning. Blood work has been improving significantly, and the patient denies retrosternal chest pain, palpitations, dizziness, diaphoresis. No need for cardiac workup at this stage Acute symptomatic anemia - chronic iron-deficiency - chronic blood loss anemia Progressive blood loss 2/2 nutritional deficiency in the setting of iron deficiency, and secondarily due to chronic blood loss in the setting of chronically bleeding anal cancer. Transfused 1 unit while in emergency room. Currently stable Anal squamous cell carcinoma Oncology following Streaky bleeding. This will need to be followed in outpatient setting with CBCs. Further intervention to be dictated by Gastroenterology/colorectal surgery/Oncology CHRONIC MEDICAL ISSUES HTN : Hold antihypertensives GERD : Omeprazole 20 mg OD p.o. HLD : Atorvastatin 80 mg OD p.o., Zetia 10 mg OD p.o. QUALITY METRICS - VTE: SCDs - CODE STATUS: Full code - DIET: Regular Total time managing care of this patient today: 45 minutes. Quality Stroke Does the patient have a stroke diagnosis?: No VTE Prior VTE?: No VTE Risk Level:: Medical - moderate - high VTE Device Contraindication: N/A - Device Ordered VTE Drug Contraindication: Treatment Not Indicated
[2025-04-19 14:03] LABS: Appearance Urine Cloudy; Glucose Urine UA Negative (Negative); PH 6.5 (5.0-9.0); UMIC TRIGGER UACC YES
[2025-04-19 14:04] LABS: Specific Gravity - Urine 1.015 (1.005-1.025)
[2025-04-19 14:18] LABS: UACC Culture Trigger YES
[2025-04-19 15:58] VITALS: BP 99/58; PULSE 89; RESP 19; TEMP 36.6; O2SAT 99
[2025-04-19] MEDS: 0.9 % Sodium Chloride Flush 3 ML SYRINGE IVFLUSH (17:44)
[2025-04-19 19:03] VITALS: BP 125/57; PULSE 97; RESP 16; TEMP 36.8; O2SAT 99
[2025-04-19 23:24] VITALS: BP 137/61; PULSE 76; RESP 18; TEMP 36.6; O2SAT 97
[2025-04-20 03:13] VITALS: BP 121/56; PULSE 75; RESP 18; TEMP 36.2; O2SAT 98
[2025-04-20] MEDS: Lactated Ringers 1,000 ML 80 ML IVCONT (05:56)
[2025-04-20 07:23] VITALS: BP 145/67; PULSE 77; RESP 20; TEMP 36.7; O2SAT 98
[2025-04-20 07:27] LABS: MANUAL DIFF FLAG NO
[2025-04-20 07:45] LABS: Alanine Aminotransferase 8 U/L (0-31); Albumin Level 2.8 g/dL (3.5-5.0); Alkaline Phosphatase 128 U/L (39-117); Anion Gap 11 (12-20); Aspartate Amino Transferase 22 U/L (5-31); Blood Urea Nitrogen 23 mg/dL (9-16); Calcium 8.7 mg/dL (8.4-10.2); Carbon Dioxide 28 mmol/L (22-29); Chloride 104 mmol/L (96-108); Creatinine Clr Calc Pharmacy 36.4; Estimated Glomerular Filt Rate 40; Potassium 4.2 mmol/L (3.3-5.1); Sodium 139 mmol/L (135-145); Total Protein 5.9 g/dL (6.5-8.0)
[2025-04-20 07:46] LABS: Hematocrit 29.5 % (37.0-47.0); Hemoglobin 9.3 g/dl (12.0-16.0); Imm Gran Abs Auto 0.05 X10*3/uL (0.00-0.03); Imm Gran Pct Auto 0.4 % (0.0-0.4); Lymphocytes Absolute Auto 1.2 X10*3/uL (1.2-4.9); Mean Corpuscular HGB Conc 31.5 g/dl (31.0-35.0); Mean Corpuscular Hemoglobin 25.5 pg (27.0-33.0); Mean Corpuscular Volume 81.0 fL (80.0-98.0); NRBC Abs Auto 0.000 X10*3/uL (0.0-0.012); NRBC Pct Auto 0.0 /100WBC (0.0-0.2); Platelet Count 344 X10*3/uL (160-400); Red Blood Count 3.64 X10*6/uL (4.20-5.50); White Blood Count 12.1 X10*3/uL (4.8-10.8)
[2025-04-20] MEDS: 0.9 % Sodium Chloride Flush 3 ML SYRINGE IVFLUSH (08:02)
[2025-04-20 10:07] VITALS: BP 126/59; PULSE 78; RESP 16; TEMP 36; O2SAT 98
[2025-04-20 11:50] VITALS: BP 146/65; PULSE 68; RESP 16; TEMP 36.4; O2SAT 99
[2025-04-20 15:05] VITALS: BP 144/67; PULSE 75; RESP 18; TEMP 36.4; O2SAT 99
--- NOTE | 2025-04-20 16:47 | P.CNUR_ITS ---
History of Present Illness Consult details Consult date: 04/20/25 Narrative: Consult for hematuria, pt reportes painless hematuria, denies irritative voiding symptoms CTAP, renal US - right renal calculi, non obstructing Review of Systems 2 Review of Systems: Yes all other systems are reviewed and are negative Constitutional: Constitutional: Reports no additional constitutional complaints Eyes: Eyes: Reports no additional eye complaints ENT: Reports system reviewed and no additional complaints, except as documented Cardiovascular: Cardiovascular: Reports no additional cardiovascular complaints Respiratory: Respiratory: Reports no additional respiratory complaints Gastrointestinal: Gastrointestinal: Reports no additional gastrointestinal complaints Genitourinary: Genitourinary: Reports as per HPI Musculoskeletal: Musculoskeletal: Reports no additional musculoskeletal complaints Integumentary/Breasts: Skin/Breast: Reports system reviewed and no additional complaints, except as docu Neurologic: Reports system reviewed and no additional complaints, except as documented Psychiatric: Psychiatric: Reports no additional psychiatric complaints Endocrine: Endocrine: Reports no additional endocrine complaints Hematologic/Lymphatic: Hematologic/Lymphatic: Reports no additional hematologic/lymphatic complaints Allergic/Immunologic: Allergic/Immunologic: Reports no additional allergic/immunologic complaints [facility] Past Medical History Medical History Mass of anus Breast cancer screening by mammogram Insomnia Carpal tunnel syndrome Anxiety and depression Osteoarthritis Tobacco abuse Hypercholesterolemia Peripheral arterial disease Obesity (BMI 30-39.9) Gastroesophageal reflux disease Coronary artery disease Hypertension Obstructive sleep apnea Family History Family History Father No problems noted. Mother Diabetes mellitus HTN (hypertension) Stroke Brother No problems noted. Brother No problems noted. Brother No problems noted. Brother No problems noted. Brother No problems noted. Brother No problems noted. Sister Cancer Sister No problems noted. Daughter No problems noted. Daughter No problems noted. Daughter No problems noted. Surgical History Surgical History Status post insertion of drug-eluting stent into right coronary artery for coronary artery disease S/P breast biopsy, left History of knee replacement procedure of left knee History of tubal ligation Social History Social History Household Members: Family Housing: Condominium Do you presently have visiting nurse or other home services: No Alcohol intake: current Alcohol intake frequency: holidays/special occasions only Comment: QOD 5 drinks Patient Tobacco Use Status: Former Tobacco user Tobacco use type: Cigarette Cigarette Packs Per Day: 0.5 Years Smoked: started 20 years old e-Cigarette/Vaping Use: Never Used Second Hand Smoke Exposure: Yes service: No Current occupational status: unemployed Cognitive needs: Yes (walker) Hearing needs: No Vision needs: No Meds Allergies Allergy/AdvReac Type Severity Reaction Status Date / Time codeine (Codeine) Allergy Intermediate VOMITING/RA Verified 04/17/25 10:22 SH fenofibrate Allergy Unknown Unknown Verified 04/17/25 10:22 hydrocodone (From Vicodin) Allergy Unknown Unknown Verified 04/17/25 10:22 tramadol AdvReac Intermediate palpitation Verified 04/17/25 10:22 s Active Medications: Current Medications Acetaminophen (Acetaminophen 325 Mg Tablet) 650 mg PO Q6H PRN PRN Reason: Pain, Mild 1-3,fever,headache Last Admin: 04/19/25 12:11 Dose: 650 mg Alprazolam (Alprazolam 0.25 Mg Tablet) 0.25 mg PO BEDTIME PRN PRN Reason: Sleep Last Admin: 04/19/25 21:34 Dose: 0.25 mg Atorvastatin Calcium (Atorvastatin Calcium 80 Mg Tablet) 80 mg PO DAILY [facility] Last Admin: 04/20/25 08:01 Dose: 80 mg Calcium Carbonate (Calcium Carbonate 750 Mg Tab.Chew) 750 mg PO Q4H PRN PRN Reason: Heartburn Cyanocobalamin (Cyanocobalamin (Vitamin B-12) 100 Mcg Tablet) 100 mcg PO DAILY [facility] Last Admin: 04/20/25 08:01 Dose: 100 mcg Ezetimibe (Ezetimibe 10 Mg Tablet) 10 mg PO DAILY [facility] Last Admin: 04/20/25 08:01 Dose: 10 mg Folic Acid (Folic Acid 1 Mg Tablet) 1 mg PO DAILY [facility] Last Admin: 04/20/25 08:01 Dose: 1 mg Iron Sucrose 100 mg/ Sodium (Chloride) 55 mls @ 220 mls/hr IV DAILY@1700 [facility] Stop: 04/20/25 16:59 Last Infusion: 04/19/25 18:32 Dose: Infused Lactated Ringer's (Lr) 1,000 mls @ 80 mls/hr IVCONT .[id number] [facility] Last Admin: 10/17/25 12:51 Dose: Not Given Magnesium Hydroxide (Milk Of Magnesia 30 Ml Oral.Susp) 30 ml PO DAILY PRN PRN Reason: Constipation Melatonin (Melatonin 3 Mg Tablet) 6 mg PO BEDTIME PRN PRN Reason: Insomnia Omeprazole (Omeprazole 20 Mg Capsule.Dr) 20 mg PO DAILY@0630 [facility] Last Admin: 04/20/25 05:56 Dose: 20 mg Ondansetron HCl (Ondansetron Hcl 4 Mg/2 Ml Vial) 4 mg IVPUSH Q8H PRN PRN Reason: Nausea and Vomiting Oxycodone HCl (Oxycodone Hcl Immed Release 5 Mg Tablet) 5 mg PO Q8H PRN PRN Reason: Pain (Scale Score 7-10) Last Admin: 04/18/25 00:57 Dose: 5 mg Sodium Chloride (0.9 % Sodium Chloride Flush 3 Ml Syringe) 3 ml IVFLUSH QSHIFT [facility] Last Admin: 04/20/25 16:34 Dose: Not Given Thiamine HCl (Thiamine Hcl 100 Mg Tablet) 100 mg PO DAILY [facility] Last Admin: 04/20/25 08:01 Dose: 100 mg Zolpidem Tartrate (Zolpidem Tartrate 5 Mg Tablet) 5 mg PO BEDTIME PRN PRN Reason: Insomnia Home Medications ?Medication ?Instructions ?Recorded ?Confirmed ?Last Taken ?Type alprazolam 0.25 mg tablet 0.25 mg PO BEDTIME PRN sleep 04/17/25 04/17/25 Unknown History Physical Exam 2 Vital Signs: Vital Signs: Last Vital Signs Temp 97.6 F 04/20/25 15:05 Pulse 75 04/20/25 15:05 Resp 18 04/20/25 15:05 BP 144/67 H 04/20/25 15:05 Pulse Ox 99 04/20/25 15:05 O2 Del Method Room Air 04/20/25 15:05 BMI result Body Mass Index 30.3 Const: General: cooperative, healthy appearing and no acute distress O rientation/consciousness: patient oriented x3 HEENT: Head: Yes normal to inspection, Yes normocephalic and Yes atraumatic Neck: Neck: Yes normal visual inspection and Yes trachea midline Chest: Chest palpation & inspection: normal inspection of the chest Resp: Effort & Inspection: normal respiratory effort GI: Inspection: Yes normal to inspection Neuro: General: patient oriented x3 Psych: Appearance: grossly normal Results Labs 04/20/25 07:06 04/20/25 07:06 Labs: Abnormal lab results 04/20/25 Range/Units 07:06 WBC 12.1 H (4.8-10.8) X10*3/uL RBC 3.64 L (4.20-5.50) X10*6/uL Hgb 9.3 L (12.0-16.0) g/dl Hct 29.5 L (37.0-47.0) % MCH 25.5 L (27.0-33.0) pg RDW 16.7 H (11.0-16.0) % Neut % (Auto) 81.1 H (45-73) % Lymph % (Auto) 10.3 L (20-40) % Abs Immat Gran (auto) 0.05 H (0.00-0.03) X10*3/uL Absolute Neuts (auto) 9.8 H (2.0-8.3) x10*3/uL Anion Gap 11 L (12-20) BUN 23 H (9-16) mg/dL Alkaline Phosphatase 128 H (39-117) U/L Total Protein 5.9 L (6.5-8.0) g/dL Albumin 2.8 L (3.5-5.0) g/dL Short CBC 04/20/25 Range/Units 07:06 WBC 12.1 H (4.8-10.8) X10*3/uL Hgb 9.3 L (12.0-16.0) g/dl Hct 29.5 L (37.0-47.0) % Plt Count 344 (160-400) X10*3/uL BMP 04/20/25 07:06 Sodium 139 Potassium 4.2 Chloride 104 Carbon Dioxide 28 BUN 23 H Creatinine 1.31 Calcium 8.7 Liver Function 04/20/25 Range/Units 07:06 Total Bilirubin 0.3 (0.0-1.0) mg/dL AST 22 (5-31) U/L ALT 8 (0-31) U/L Alkaline Phosphatase 128 H (39-117) U/L Albumin 2.8 L (3.5-5.0) g/dL Urine 04/17/25 04/19/25 Range/Units 22:11 13:30 Urine Color Yellow RED Urine Appearance Cloudy Cloudy Urine pH 5.0 6.5 (5.0-9.0) Ur Specific [place] 1.010 1.015 (1.005-1.025) Urine Protein Trace 300 (3+) H (Neg-Trace) mg/dL Urine Glucose (UA) Negative Negative (Negative) mg/dL All other labs normal. Assessment and Plan (1) Mass of anus: Status: Acute (2) Hematuria: Status: Acute (3) Right renal stone: Status: Acute Plan out patient fu, monitor renal calculi, outpatient office cytoscopoy Procedures Date of Service Date of Service: 04/22/25
--- NOTE | 2025-04-20 17:59 | P.DS_ITS ---
DS: Providers Provider Date of Service: 04/20/25 Date of admission: 04/17/25 13:50 Date of discharge: 04/20/25 Primary care physician: Katlin Otero MD Consults: 04/17/25 13:52 Consult to Hematology / Oncology Routine Consulting Provider: [facility] Reason for consultation: anemia 04/17/25 13:54 Consult to Nephrology Routine Consulting Provider: [facility] Reason for consultation: naren 04/18/25 05:26 Consult to Gastroenterology Routine Consulting Provider: Jesús Grijalva Reason for consultation: Rectal bleeding,open area over anal CA site Has provider been notified: No 04/20/25 10:15 Consult to Urology Routine Consulting Provider: [facility] Reason for consultation: haematuria DS: Diagnosis Discharge Diagnosis (1) Mass of anus: Status: Acute (2) Hematuria: Status: Acute (3) Right renal stone: Status: Acute DS: Summary Hospital Course Hospital Course: 69-year-old female, with past medical history of anal squamous cell carcinoma following Oncology, CAD, HTN, ETOH abuse, NAFLD, osteopenia, tobacco abuse, presents with diarrhea for 1-2 weeks, dizziness and collapse in the shower, admitted with syncope 2/2 dehydration and failure to thrive, c/b acute on chronic iron-deficiency anemia and blood loss anemia from anal cancer, and severe prerenal acute kidney injury with hyperkalemia, and electrolyte deficiencies. PRESENTATION She was noted to have a decreased hemoglobin and hematocrit and magnesium as reported by her primary care provider. Apparently she has also had some dizziness with standing for the last week. She denied chest pain, shortness breath, nausea, vomiting. Apparently she fell in the shower 3 days ago but she denied any loss of consciousness or injury to her head. She was having some diarrhea and noted some bright red blood in the toilet. She does take pain medication for the anal pain. She is not currently started any treatments with Oncology yet as the workup is still ongoing. Her potassium was noted to be mildly elevated at 5.2, hemoglobin 8.4, hematocrit 27.2, creatinine 3.53 and 2.99, magnesium 1.3. 1 unit of packed red blood cells was ordered along with IV magnesium. She will be admitted for further management and treatment of acute iron-deficiency anemia with GI bleed. PROBLEM LIST Failure to thrive Diarrhea; possible viral or functional Dehydration Prerenal acute kidney injury - Hyperkalemia - Hypomagnesemia Patient's diarrhea may have been triggered by the anal squamous cell carcinoma, versus from an acute viral illness. Regardless, currently patient's diarrhea has resolved. She presented with an element of failure to thrive in the setting of unable intake p.o. fluid or food for 1-2 weeks This led to dehydration and prerenal acute kidney injury; along with hyperkalemia. Patient also has hypomagnesemia in setting of poor p.o. intake. Received IVF in emergency room and on medical floor, with significant improvement in creatinine from 3.5,-improving to baseline of 0.8 Renal was consulted-recommendations greatly appreciated NAREN resolved with hydration back to baseline. Thiamine 100 mg OD p.o. Folic acid 1 mg OD p.o. Cyanocobalamin 100 mg OD p.o. Syncope-orthostatic hypotension vs vasovagal CAD Syncopal event as contributed by multiple different factors. Failure to thrive diarrhea and dehydration being the 1st, further precipitated by progressive anemia 2/2 loss from Anal cancer./ The patient collapsed in the shower - orthostatic hypotension is likely causative etiology for patient's syncopal event Patient has a history of CAD, however no changes on ECG that are concerning. Blood work has been improving significantly, and the patient denies retrosternal chest pain, palpitations, dizziness, diaphoresis. No need for cardiac workup at this stage Acute symptomatic anemia - chronic iron-deficiency - chronic blood loss anemia Progressive blood loss 2/2 nutritional deficiency in the setting of iron deficiency, and secondarily due to chronic blood loss in the setting of chronically bleeding anal cancer. Transfused 1 unit while in emergency room. Currently stable Anal squamous cell carcinoma Oncology following Streaky bleeding. This will need to be followed in outpatient setting with CBCs. Further intervention to be dictated by Gastroenterology/colorectal surgery/Oncology Haematuria Nephrolithiasis Noted to have hematuria on urinalysis. Patient has history of nephrolithiasis Ultrasonography renal was conducted, revealing small right-sided nephrolithiasis and a small left renal cyst without hydronephrosis. Urology evaluated patient, with plans for outpatient follow up and to monitor renal calculi. Offering outpatient cystoscopy Status at Discharge Functional status at discharge: independent ambulation Overall status at discharge: patient is back to baseline Time Attestation Total time managing care of this patient today: 35 mintues. Discharge Coordination Time (in mins): 15 Quality: Safe Use of Opioids Does Pt have an Active Cancer Diagnosis on the Problem List?: Yes Opioid Measure Date for [facility] Report: 03/21/25 Opioid Measure Time for [facility] Report: 18:03 Quality: Stroke Does the patient have a stroke diagnosis?: No Physical Exam Exam: Exam: General: A&O x3, oriented to time place person and situation, comfortable, no pain Cardiac: S1, S2 auscultated with no S3/4, no MRG. Well perfused. Respiratory: Normal breath sounds auscultated throughout all lung zones, without wheezing, rales. Normal rate. GI/ : No abdominal pain on palpation, no masses or distentions. MSK: Normal ambulation without pain at bony prominences or musculature Neurological: Normal neurological examination on overview, without obvious CN II-XII abnormalities. Vital Signs: Vital Signs: Last Vital Signs Temp 97.6 F 04/20/25 15:05 Pulse 75 04/20/25 15:05 Resp 18 04/20/25 15:05 BP 144/67 H 04/20/25 15:05 Pulse Ox 99 04/20/25 15:05 O2 Del Method Room Air 04/20/25 15:05 BMI result Body Mass Index 30.3 DS: Data Data Completed and Pending Labs on day of discharge: Laboratory Results - last 24 hr 04/20/25 07:06 WBC 12.1 H RBC 3.64 L Hgb 9.3 L Hct 29.5 L MCV 81.0 MCH 25.5 L MCHC 31.5 RDW 16.7 H Plt Count 344 MPV 9.6 Immature Gran % (Auto) 0.4 Neut % (Auto) 81.1 H Lymph % (Auto) 10.3 L [place] % (Auto) 6.9 Eos % (Auto) 0.9 Baso % (Auto) 0.4 Lymph # (Auto) 1.2 [place] # (Auto) 0.8 Eos # (Auto) 0.1 Baso # (Auto) 0.1 Abs Immat Gran (auto) 0.05 H Absolute Neuts (auto) 9.8 H Absolute Nucleated RBC 0.000 Nucleated RBC % (auto) 0.0 Sodium 139 Potassium 4.2 Chloride 104 Carbon Dioxide 28 Anion Gap 11 L BUN 23 H Creatinine 1.31 Estim Creat Clear Calc 36.4 Estimated GFR 40 Random Glucose 94 Calcium 8.7 Total Bilirubin 0.3 AST 22 ALT 8 Alkaline Phosphatase 128 H Total Protein 5.9 L Albumin 2.8 L Preliminary micro results at discharge 04/19/25 16:34 Urine Culture - Preliminary Urine clean catch - Clean Catch Midstream Culture in progress. Discharge Plan Discharge Anticipated Discharge Date/Time: 04/20/25 18:03 Patient Disposition: Home, Self-Care Discharge Diagnosis: Failure to thrive with dehydration, electrolyte abnormalities in the setting of functional/viral diarrhea & prerenal NAREN Referrals: Po,Katlin Sawant MD [Primary Care Provider, Internal Medicine] - 1 Week Discharge Medications: No Action rosuvastatin 20 mg tablet 20 mg PO DAILY Qty: 90 11RF metoprolol succinate 25 mg tablet extended release 24 hr 25 mg PO DAILY Qty: 90 11RF ezetimibe 10 mg tablet 10 mg PO DAILY 90 Days Qty: 90 11RF aspirin 81 mg tablet,delayed release (DR/EC) 81 mg PO DAILY 90 Days Qty: 90 3RF lisinopril 10 mg tablet 10 mg PO DAILY 90 Days Qty: 90 3RF omeprazole 20 mg capsule,delayed release(DR/EC) 20 mg PO DAILY 90 Days Qty: 90 2RF zolpidem 5 mg tablet 5 mg PO BEDTIME PRN (Reason: insomnia) 30 Days Qty: 30 0RF amlodipine 5 mg tablet 5 mg PO DAILY 90 Days Qty: 90 11RF oxycodone 5 mg Tablet 5 mg PO Q8H PRN (Reason: Pain (Scale Score 7-10)) Qty: 30 0RF Rx Instructions: Partial Fill upon patient request. alprazolam 0.25 mg tablet 0.25 mg PO BEDTIME PRN (Reason: sleep) (DME) SHOWER CHAIR See Rx Instructions .Route .MEDSUPPLY Qty: 1 0RF Rx Instructions: As directed Discharge Orders: Discharge Order (Routine); Ordered 04/20/25 Ordered By: Shanthi Rubio Diet: Advance to usual diet Activity on Discharge: As tolerated Stand Alone Forms: Patient Portal Discharge page Print Language: Gabonese Care Plan Goals: As above Health Concerns: As above Plan of Treatment: Encourage hydration and p.o. intake Follow up with the PCP within 1 week of discharge Blood work to be performed within 2-4 weeks of discharge Follow up with outpatient Oncology/Hematology Follow up with Urology outpatient Assessment: Patient is hemodynamically stable, without acute issues. Her diarrhea has resolved-able to eat and drink well-likely in the setting of viral gastroenteritis
== END 2025-04-20 18:14 | disposition home or self-care (01) | DRG 392 ==
LOC: HO.ED 13:47 → HO.EDOVER 14:01 → HO.IMC 04-18 14:06 → HO.S3 04-20 07:44
PROVIDERS: Internal Medicine; Registered Nurse Emergency; Admitting Provider Nurse Practitioner Acute Care; Emergency Provider Emergency Medicine; PCP Internal Medicine; Visit Provider Hospitalist
DX: A08.4 Viral intestinal infection, unspecified (principal); N17.9 Acute kidney failure, unspecified; C21.0 Malignant neoplasm of anus, unspecified; D50.0 Iron deficiency anemia secondary to blood loss (chronic); F41.9 Anxiety disorder, unspecified; I25.10 Atherosclerotic heart disease of native coronary artery without angina pectoris; E83.42 Hypomagnesemia; K21.9 Gastro-esophageal reflux disease without esophagitis; E66.811 Obesity, class 1; Z71.3 Dietary counseling and surveillance; Z68.30 Body mass index [BMI] 30.0-30.9, adult; I95.1 Orthostatic hypotension; E86.0 Dehydration; N20.0 Calculus of kidney; D63.0 Anemia in neoplastic disease; R31.9 Hematuria, unspecified; R62.7 Adult failure to thrive; E87.5 Hyperkalemia; Z87.891 Personal history of nicotine dependence; Z79.82 Long term (current) use of aspirin; Z79.899 Other long term (current) drug therapy
CPT/HCPCS: 36415; 74176; 76775; 80053; 81001; 81003; 82272; 83735; 85014; 85018; 85025; 85027; 85610; 86850; 86900; 86901; 86923; 87086; 87493; 87507; 99285; J0131; J1756; J3475; J7120; P9016

== ENCOUNTER 2025-04-17 13:50 | Outpatient (BNV) | payer MEDICARE, SELFPAY | END 2025-04-20 11:52 | PROVIDERS: Admitting Provider Nurse Practitioner Acute Care; Emergency Provider Emergency Medicine; PCP Internal Medicine; Visit Provider Radiology Diagnostic Radiology | DX: N20.0 Calculus of kidney (principal); N28.1 Cyst of kidney, acquired | CPT/HCPCS: 76775 ==

== ENCOUNTER 2025-04-17 13:50 | Outpatient (BNV) | payer MEDICARE, SELFPAY | END 2025-04-18 09:52 | PROVIDERS: Admitting Provider Nurse Practitioner Acute Care; Emergency Provider Emergency Medicine; PCP Internal Medicine; Visit Provider Radiology Diagnostic Radiology | DX: K57.30 Diverticulosis of large intestine without perforation or abscess without bleeding (principal); K62.89 Other specified diseases of anus and rectum | CPT/HCPCS: 74176 ==

== ENCOUNTER → 2025-04-17 13:50 | Outpatient (BNV) | payer MEDICARE, SELFPAY | PROVIDERS: Admitting Provider Nurse Practitioner Acute Care; Emergency Provider Emergency Medicine; PCP Internal Medicine; Visit Provider Urology | DX: K62.89 Other specified diseases of anus and rectum (principal); R31.9 Hematuria, unspecified; N20.0 Calculus of kidney | CPT/HCPCS: 99222 ==

== ENCOUNTER → 2025-04-17 13:50 | Outpatient (BNV) | payer MEDICARE, SELFPAY | PROVIDERS: Admitting Provider Nurse Practitioner Acute Care; Emergency Provider Emergency Medicine; PCP Internal Medicine; Visit Provider Internal Medicine Critical Care Medicine | DX: N17.9 Acute kidney failure, unspecified (principal); E87.29 Other acidosis | CPT/HCPCS: 99232 ==

== ENCOUNTER → 2025-04-17 13:50 | Outpatient (BNV) | payer MEDICARE, SELFPAY | PROVIDERS: Admitting Provider Nurse Practitioner Acute Care; Emergency Provider Emergency Medicine; PCP Internal Medicine; Visit Provider Internal Medicine | DX: D01.3 Carcinoma in situ of anus and anal canal (principal) | CPT/HCPCS: 99222 ==

== ENCOUNTER → 2025-04-17 13:50 | Outpatient (BNV) | payer MEDICARE, SELFPAY | PROVIDERS: Admitting Provider Nurse Practitioner Acute Care; Emergency Provider Emergency Medicine; PCP Internal Medicine; Visit Provider Nurse Practitioner Acute Care | DX: F41.9 Anxiety disorder, unspecified (principal); F32.9 Major depressive disorder, single episode, unspecified | CPT/HCPCS: 99223 ==

== ENCOUNTER 2025-04-23 11:10 | Outpatient (REF) | payer MEDICARE, SELFPAY ==
--- NOTE | ~2025-04-23 | US_ITS ---
EXAMINATION: US TRIPLEX UPPER EXTREMITY, LEFT CLINICAL INFORMATION: Left upper extremity swelling, rule out DVT. COMPARISON: None available. TECHNIQUE: Color-flow triplex imaging with spectral analysis and compression Doppler was performed on the left upper extremity. FINDINGS: The left internal jugular, subclavian, and axillary veins are patent and free of thrombus. The imaged segment of the left brachiocephalic vein is patent. Spectral doppler waveforms are normal. The brachial, basilic, cephalic, radial, and ulnar veins are patent and compressible. There is noncompressible thrombus in the distal basilic vein consistent with superficial thrombophlebitis. US/US venous duplex UE LT IMPRESSION: 1. No evidence of deep venous thrombosis involving the left upper extremity. 2. Superficial thrombophlebitis of the distal basilic vein. Above findings were given communicated to Dr. Dodson by the trout farmer Amara Ramirez. Electronically signed by: Sebsatian Bailey MD 04/23/2025 12:33 PM EDT
== END 2025-04-23 11:11 | disposition home or self-care (01) ==
LOC: HO.US 11:10
PROVIDERS: PCP Internal Medicine; Visit Provider Internal Medicine
DX: M79.89 Other specified soft tissue disorders (principal)
CPT/HCPCS: 93971

== ENCOUNTER → 2025-04-23 11:15 | Outpatient (BNV) | payer MEDICARE, SELFPAY | PROVIDERS: PCP Internal Medicine; Visit Provider Radiology Diagnostic Radiology | DX: I82.612 Acute embolism and thrombosis of superficial veins of left upper extremity (principal) | CPT/HCPCS: 93971 ==

== ENCOUNTER 2025-04-27 09:50 | Outpatient (REF) | payer MEDICARE, SELFPAY ==
--- OUTSIDE RECORDS SUMMARY | 2025-04-26 15:10 | XMS_ITS | Encounter Summary ---
Author Organization [facility] Address [address] [place] [address] Drive [address] [place] [phone] Phone Care Team Providers Care Loader Demolder Name Role Phone Katlin Otero MD Primary Care Provider [phone] Reason for Visit * Reason Comments Weekly Visit Anal cancer Encounter Details Date Type Department Care Team (Late st Contact Info) Description 04/26/2025 3:10 PM EDT Procedure visit [facility] Rad Onc [address] [place] [id number] Becky Lisa MD [address] [place] [phone] [email or web address] Anal cancer (Primary Dx) Social History Tobacco Use Types Packs/Day Years [...] on file documented as of this encounter Progress Notes * Sherri Del Valle RN - 04/26/2025 3:10 PM EDT Patient seen in treatment room to expedite catching her ride home Fatigue: yes Pain (intensity 1-10): 4 when lying down 7/10 when sitting Pain management (meds): doesn't like to use oxycodone as it makes her sleep, encouraged to use tylenol Skin/products used: Vaseline to good effect Steroid name + dosage: none Bowels: some incontinence Date of last WBC: 04/23/25 11.4 plt 360 * Becky Lisa MD - 04/26/2025 3:10 PM EDT Radiation Oncology Weekly Treatment Management Note Name: Letha Duffy Date of : 1955 Referring Physician : Amalia Dodson MD Diagnosis: Squamous cell carcinoma of the anal canal, Stage IIIA (cT3 cN1a cM0) Medical Oncologist: Amalia Dodson MD Surgeon: Dr. Eligio Bloom [facility] History: This is a 69 y.o. female with above diagnosis. Treatment: VMAT Dose Information: Current Treatment Documentation Date: 04/26/25 Treatment site: Anus, high risk Ns, Pelvis LNs Dose received through today's treatment (cGy): 720 Planned total dose (cGy): 5400 Fraction number through today's treatment: 4 Total planned number of fractions: 30 Concurrent Therapy: Xeloda (did not receive MMC this week due to thrombophlebitis) Interval History: Pain Assessment: Intensity: 7.5 / 10 Location: Anus Complains of 1) Anal pain She denies constipation and diarrhea. She is using Vaseline on perineum. Physical Exam: Performance Status: ECOG performance status: 2- Ambulatory and capable of all selfcare but unable to carry out any work activities. Up and about more than 50% of waking hours General: No acute distress. Skin: No radiation related changes in bilateral groins, perineum and perianal area. Large perianal mass without active bleeding. Assessment and Plan of Care: Tolerating radiation therapy well. --Pain: Continue oxycodone as prescribed with medical oncology. Recommended Tylenol prior to treatment as oxycodone causes drowsiness. --CT chest ordered to evaluate lung nodule seen on CT abdomen/pelvis during recent hospitalization at [facility]. Discussed rationale for CT chest today with patient. Provided patient with CT appointment details. CT is scheduled for 05/08/2025 at 3:45 PM, immediately after radiation therapy. 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 Reviewed recommendations for: -- Skin care We will CONTINUE the current course of radiation therapy as planned. New prescriptions: None Technical Evaluation Dose: The graphic plan was reviewed and is acceptable Patient Set up: The patient set up was reviewed and is acceptable Set up Images: The daily set up images were reviewed, any adjustments reviewed, and are acceptable Becky Lisa MD Radiation Oncology [facility] documented in this encounter Plan of Treatment Upcoming Encounters Date Type Department Care Team (Late st Contact Info) Description 04/23/2025 Procedure Pass [facility], Ct Scan - [address] [id number] 04/27/2025 3:00 PM EDT Treatment [facility] Rad Onc [address] [place] [phone] Becky Lisa MD [address] [place] [phone] [email or web address] 04/30/2025 3:00 PM EDT Treatment [facility] Rad Onc [address] [place] [phone] Becky Lisa MD [address] [place] [phone] [email or web address] 05/01/2025 3:00 PM EDT Treatment [facility] Rad Onc [address] [place] [address] Becky Lisa MD [address] [place] [phone] [email or web address] 05/02/2025 3:00 PM EDT Treatment [facility] Rad Onc [address] [place] [address] Becky Lisa MD [address] [place] [phone] [email or web address] 05/03/2025 3:00 PM EDT Treatment [facility] Rad Onc [address] [place] [address] Becky Lisa MD [address] [place] [phone] [email or web address] 05/03/2025 3:20 PM EDT Procedure visit [facility] Rad Onc [address] [place] [address] Becky Lisa MD [address] [place] [phone] [email or web address] 05/04/2025 3:00 PM EDT Treatment [facility] Rad Onc [address] [place] [id number] Becky Lisa MD [address] [place] [phone] [email or web address] 05/07/2025 3:00 PM EST Treatment [facility] Rad Onc [address] [place] [address] Becky Lisa MD [address] [place] [phone] [email or web address] 05/07/2025 3:45 PM EST Appointment [facility], Ct Scan - [address] [address] Becky Lisa MD [address] [place] [phone] [email or web address] 05/08/2025 2:40 PM EST Treatment [facility] Rad Onc [address] [place] [address] Becky Lisa MD [address] [place] [phone] [email or web address] 05/09/2025 2:40 PM EST Treatment [facility] Rad Onc [address] [place] [address] Becky Lisa MD [address] [place] [address] [phone] [email or web address] 05/10/2025 2:40 PM EST Treatment [facility] Rad Onc [address] [place] [address] Becky Lisa MD [address] [place] [phone] [email or web address] 05/10/2025 3:20 PM EST Procedure visit [facility] Rad Onc [address] [place] [address] 615[address] Becky Lisa MD [address] [place] [phone] [email or web address] 05/11/2025 2:40 PM EST Treatment [facility] Rad Onc [address] [place] [address] Becky Lisa MD [address] [place] [phone] [email or web address] 05/14/2025 2:40 PM EST Treatment [facility] Rad Onc [address] [place] [address] Becky Lisa MD [address] [place] [phone] [email or web address] 05/15/2025 2:40 PM EST Treatment [facility] Rad Onc [address] [place] [address] 147[address] Becky Lisa MD [address] [place] [address] [phone] [email or web address] 05/16/2025 2:50 PM EST Treatment [facility] Rad Onc [address] [place] [address] Becky Lisa MD [address] [place] [phone] [email or web address] 05/17/2025 2:40 PM EST Treatment [facility] Rad Onc [address] [place] [address] 250[address] Becky Lisa MD [address] [place] [phone] [email or web address] 05/17/2025 3:20 PM EST Procedure visit [facility] Rad Onc [address] [place] [address] 8[address] Becky Lisa MD [address] [place] [phone] [email or web address] 05/18/2025 2:40 PM EST Treatment [facility] Rad Onc [address] [place] [address] Becky Lisa MD [address] [place] [address] [phone] [email or web address] 05/21/2025 2:40 PM EST Treatment [facility] Rad Onc [address] [place] [address] Becky Lisa MD [address] [place] [phone] [email or web address] 05/22/2025 2:40 PM EST Treatment [facility] Rad Onc [address] [place] [address] 8[address] Becky Lisa MD [address] [place] [address] [phone] [email or web address] 05/23/2025 2:40 PM EST Treatment [facility] Rad Onc [address] [place] [address] 601[address] Becky Lisa MD [address] [place] [address] [phone] [email or web address] 05/24/2025 2:40 PM EST Treatment [facility] Rad Onc [address] [place] [address] Becky Lisa MD [address] [place] [phone] [email or web address] 05/24/2025 3:20 PM EST Procedure visit [facility] Rad Onc [address] [place] [address] Becky Lisa MD [address] [place] [address] [phone] [email or web address] 05/25/2025 2:40 PM EST Treatment [facility] Rad Onc [address] [place] [address] 14[address] Becky Lisa MD [address] [place] [phone] [email or web address] 05/28/2025 2:40 PM EST Treatment [facility] Rad Onc [address] [place] [address] 79647 Becky Lisa MD [address] [place] [phone] [email or web address] 05/29/2025 2:40 PM EST Treatment [facility] Rad Onc [address] [place] [address] Becky Lisa MD [address] [place] [phone] [email or web address] 05/30/2025 2:40 PM EST Treatment [facility] Rad Onc [address] [place] [address] Becky Lisa MD [address] [place] [phone] [email or web address] 06/04/2025 2:40 PM EST Treatment [facility] Rad Onc [address] [place] [address] Becky Lisa MD [address] [place] [phone] [email or web address] documented as of this encounter Visit Diagnoses Diagnosis Anal cancer- Primary Malignant neoplasm of anus, unspecified site documented in this encounter Care Teams Loader Demolder Relationship Specialty Start Date End Date Branden, Katlin Perez MD [address] [place] [address] Drive [address] [place] [phone] PCP - General Internal Medicine 02/13/25 documented as of this encounter Additional Source Comments The information contained in this document represents components of the legal health record. It is not the complete legal health record.[facility]
--- NOTE | ~2025-04-27 | US_ITS ---
EXAMINATION: US TRIPLEX UPPER EXTREMITY, BILATERAL CLINICAL INFORMATION: Bilateral arm phlebitis, rule out DVT. COMPARISON: 04/23/2025. TECHNIQUE: Color-flow triplex imaging with spectral analysis and compression Doppler was performed on both upper extremities. FINDINGS: The bilateral internal jugular, subclavian, and axillary veins are patent and free of thrombus. The imaged segments of the brachiocephalic veins are patent. Spectral doppler waveforms are normal. The bilateral brachial, cephalic, radial, and ulnar veins are patent and compressible. There is stable noncompressible thrombus in the LEFT distal basilic vein consistent with superficial thrombophlebitis. US/US venous duplex UE BI IMPRESSION: 1. No evidence of deep venous thrombosis involving the left or right upper extremity. 2. Stable superficial thrombophlebitis of the LEFT distal basilic vein. Electronically signed by: Sebastian Bailey MD 04/27/2025 11:53 AM EDT
--- OUTSIDE RECORDS SUMMARY | 2025-04-27 11:07 | XMS_ITS | Encounter Summary ---
Author Organization [facility] Address [address] [place] [address] Phone Care Team Providers Care Tube Builder Airplane Name Role Phone Katlin Otero MD Primary Care Provider [phone] Encounter Details Date Type Department Care Team (Late st Contact Info) Description 03/16/2025 Procedure Pass [facility], [address] [address] Social History Tobacco Use Types Packs/Day Years [...] st Contact Info) Description 04/23/2025 Procedure Pass [facility], Ct Scan - [address] [address] 04/27/2025 3:00 PM EDT Treatment [facility] On[facility] [address] [place] [address] 15092 Becky Lisa MD [address] [place] [address] [email or web address] 04/30/2025 3:00 PM EDT Treatment [facility] [address] [place] [address] 16552 Becky Lisa MD [address] [place] [address] 96[address] [email or web address] 05/01/2025 3:00 PM EDT Treatment [facility] [address] [place] [address] 88381 Becky Lisa MD [address] [place] [address] 6[address] [email or web address] 05/02/2025 3:00 PM EDT Treatment [facility] On[facility] [address] [place] [address] 70765 Becky Lisa MD [address] [place] [address] 40592 [email or web address] 05/03/2025 3:00 PM EDT Treatment [facility] On[facility] [address] [place] [address] 6[address]13 Becky Lisa MD [address] [place] [address] 606[address] [email or web address] 05/03/2025 3:20 PM EDT Procedure visit [facility] [address] [place] [address] 58466 Becky Lisa MD [address] [place] [address] 8[address]76 [email or web address] 05/04/2025 3:00 PM EDT Treatment [facility] On[facility] [address] [place] [address] 49816 Becky Lisa MD [address] [place] [address] 965[address] [email or web address] 05/07/2025 3:00 PM EST Treatment [facility] On[facility] [address] [place] [address] 55977 Becky Lisa MD [address] [place] [address] 27623 [email or web address] 05/07/2025 3:45 PM EST Appointment [facility], [address] [address] Becky Lisa MD [address] [place] [address] 51795 [email or web address] 05/08/2025 2:40 PM EST Treatment [facility] On[facility] [address] [place] [address] 78113 Becky Lisa MD [address] [place] [address] 25822 [email or web address] 05/09/2025 2:40 PM EST Treatment [facility] Onc [address] [place] [address] 13380 Becky iLsa MD [address] [place] [address] 93336 [email or web address] 05/10/2025 2:40 PM EST Treatment [facility] Onc [address] [place] [address] 41407 Becky Lisa MD [address] [place] [address] 70458 [email or web address] 05/10/2025 3:20 PM EST Procedure visit [facility] On[facility] [address] [place] [address] 62584 Becky Lisa MD [address] [place] [address] 76859 [email or web address] 05/11/2025 2:40 PM EST Treatment [facility] On[facility] [address] [place] [address] 72120 Becky Lisa MD [address] [place] [address] 64284 [email or web address] 05/14/2025 2:40 PM EST Treatment [facility] On[facility] [address] [place] [address] 40327 Becky Lisa MD [address] [place] [address] 01769 [email or web address] 05/15/2025 2:40 PM EST Treatment [facility] On[facility] [address] [place] [address] 9[address] Becky Lisa MD [address] [place] [address] [phone] [email or web address] 05/16/2025 2:50 PM EST Treatment [facility] Rad Onc [address] [place] [address] Becky Lisa MD [address] [place] [address] 39001 [email or web address] 05/17/2025 2:40 PM EST Treatment [facility] On[facility] [address] [place] [address] 50731 Becky Lisa MD [address] [place] [address] 23789 [email or web address] 05/17/2025 3:20 PM EST Procedure visit [facility] On[facility] [address] [place] [address] 28926 Becky Lisa MD [address] [place] [address] 90735 [email or web address] 05/18/2025 2:40 PM EST Treatment [facility] Onc [address] [place] [address] 46999 Becky Lisa MD [address] [place] [address] 94141 [email or web address] 05/21/2025 2:40 PM EST Treatment [facility] Onc [address] [place] [address] 0[address]15 Becky Lisa MD [address] [place] [address] 43355 [email or web address] 05/22/2025 2:40 PM EST Treatment [facility] Onc [address] [place] [address] 96151 Becky Lisa MD [address] [place] [address] 6[address] [email or web address] 05/23/2025 2:40 PM EST Treatment [facility] Onc [address] [place] [address] 75702 Becky Lisa MD [address] [place] [address] 92967 [email or web address] 05/24/2025 2:40 PM EST Treatment [facility] Onc [address] [place] [address] 12495 Becky Lisa MD [address] [place] [address] 38[address] [email or web address] 05/24/2025 3:20 PM EST Procedure visit [facility] On[facility] [address] [place] [address] 74908 Becky Lisa MD [address] [place] [address] 31239 [email or web address] 05/25/2025 2:40 PM EST Treatment [facility] Onc [address] [place] [address] 28177 Becky Lisa MD [address] [place] [address] 84196 [email or web address] 05/28/2025 2:40 PM EST Treatment [facility] Onc [address] [place] [address] 03151 Becky Lisa MD [address] [place] [address] 75041 [email or web address] 05/29/2025 2:40 PM EST Treatment [facility] Rad Onc [address] [place] [address] 12259 Becky Lisa MD [address] [place] [address] 15685 [email or web address] 05/30/2025 2:40 PM EST Treatment [facility] Onc [address] [place] [address] 15296 Becky Lisa MD [address] [place] [address] 25821 [email or web address] 06/04/2025 2:40 PM EST Treatment [facility] Onc [address] [place] [address] 45[address] Becky Lisa MD [address] [place] [address] 599[address] [email or web address] documented as of this encounter Visit Diagnoses Not on filedocumented in this encounter Care Teams Tube Builder Airplane Relationship Specialty Start Date End Date Branden, Katlin Perez MD [address] [place] [phone] PCP - General Internal Medicine 02/13/25 documented as of this encounter Additional Source Comments The information contained in this document represents components of the legal health record. It is not the complete legal health record.[facility]
--- OUTSIDE RECORDS SUMMARY | 2025-04-27 11:07 | XMS_ITS | Encounter Summary ---
Author Organization [facility] Address [address] [place] [address] Phone Care Team Providers Care Survey Chief Name Role Phone Katlin Otero MD Primary Care Provider [phone] Encounter Details Date Type Department Care Team (Late st Contact Info) Description 04/23/2025 Telephone [facility] [address] [address] [phone] Sherri Del Valle RN [address] [place] [address] [email or web address] Social History Tobacco Use Types Packs/Day Years [...] Notes * Sherri Del Valle RN - 04/23/2025 2:49 PM EDT Call to [facility] made, spoke with RONALD Cavanaugh who explains ultrasound for swollen LUE + for DVT. Dr. Killian not order blood thinners do to recent hospital admission 04/17/25 for dehydration, FTT, syncope, and Fe anemia -bleeding at tumor site, patient given blood transfusion. Hbg was 9.6 today, plt 360. Unfortunately Letha's RUE showed signs of phlebitis so Mitomycin infusion was held. Patient told them she forgot to take her Xeloda this morning and they reviewed instructions to start tonight. Letha has an appointment with Dr. Dodson this Wednesday to review the plan. Mao will fax over [facility] notes. documented in this encounter Plan of Treatment Upcoming Encounters Date Type Department Care Team (Late st Contact Info) Description 04/23/2025 Procedure Pass [facility], Ct Scan - [address] [address] 04/27/2025 3:00 PM EDT Treatment [facility] [address] [place] [address] Becky Lisa MD [address] [place] [phone] [email or web address] 04/30/2025 3:00 PM EDT Treatment [facility] [address] [place] [address] Becky Lisa MD [address] [place] [address] [email or web address] 05/01/2025 3:00 PM EDT Treatment [facility] [address] [place] [address] 74[address] Becky Lisa MD [address] [place] [address] 76847 [email or web address] 05/02/2025 3:00 PM EDT Treatment [facility] [address] [place] [address] Becky Lisa MD [address] [place] [address] 12[address] [email or web address] 05/03/2025 3:00 PM EDT Treatment [facility] [address] [place] [place] [address] 44[address] Becky Lisa MD [address] [place] [address] 316[address] [email or web address] 05/03/2025 3:20 PM EDT Procedure visit [facility] [address] [place] [place] [address] Becky Lisa MD [address] [place] [phone] [email or web address] 05/04/2025 3:00 PM EDT Treatment [facility] [address] [place] [place] [address] Becky Lisa MD [address] [place] [address] [email or web address] 05/07/2025 3:00 PM EST Treatment [facility] [address] [place] [place] [address] Becky Lisa MD [address] [place] [address] [phone] [email or web address] 05/07/2025 3:45 PM EST Appointment [facility], Ct Scan - [address] [address] Becky Lisa MD [address] [place] [address] [email or web address] 05/08/2025 2:40 PM EST Treatment [facility] [address] [place] [address] 21309 Becky Lisa MD [address] [place] [address] 660[address] [email or web address] 05/09/2025 2:40 PM EST Treatment [facility] [address] [place] [place] [address] 51529 Becky Lisa MD [address] [place] [address] 48629 [email or web address] 05/10/2025 2:40 PM EST Treatment [facility] [address] [place] [place] [address] 37282 Becky Lisa MD [address] [place] [address] [phone] [email or web address] 05/10/2025 3:20 PM EST Procedure visit [facility] [address] [place] [place] [address] 59281 Becky Lisa MD [address] [place] [phone] [email or web address] 05/11/2025 2:40 PM EST Treatment [facility] [address] [place] [place] [address] 11868 Becky Lisa MD [address] [place] [address] 71394 [email or web address] 05/14/2025 2:40 PM EST Treatment [facility] [address] [place] [address] 86491 Becky Lisa MD [address] [place] [address] 630[address] [email or web address] 05/15/2025 2:40 PM EST Treatment [facility] [address] [place] [address] 22685 Becky Lisa MD [address] [place] [address] 73853 [email or web address] 05/16/2025 2:50 PM EST Treatment [facility] [address] [place] [address] 89099 Becky Lisa MD [address] [place] [address] 21556 [email or web address] 05/17/2025 2:40 PM EST Treatment [facility] [address] [place] [address] 90699 Becky Lisa MD [address] [place] [address] [phone] [email or web address] 05/17/2025 3:20 PM EST Procedure visit [facility] [address] [place] [address] Becky Lisa MD [address] [place] [address] 95531 [email or web address] 05/18/2025 2:40 PM EST Treatment [facility] [address] [place] [address] 30371 Becky Lisa MD [address] [place] [address] 32390 [email or web address] 05/21/2025 2:40 PM EST Treatment [facility] [address] [place] [address] 00543 Becky Lisa MD [address] [place] [address] 53279 [email or web address] 05/22/2025 2:40 PM EST Treatment [facility] [address] [place] [address] 04304 Becky Lisa MD [address] [place] [address] 78120 [email or web address] 05/23/2025 2:40 PM EST Treatment [facility] [address] [place] [address] 06624 Becky Lisa MD [address] [place] [address] [phone] [email or web address] 05/24/2025 2:40 PM EST Treatment [facility] [address] [place] [address] 70020 Becky Lisa MD [address] [place] [address] [phone] [email or web address] 05/24/2025 3:20 PM EST Procedure visit [facility] [address] [place] [address] 7[address] Becky Lisa MD [address] [place] [address] 25933 [email or web address] 05/25/2025 2:40 PM EST Treatment [facility] [address] [place] [address] 99872 Becky Lisa MD [address] [place] [address] [phone] [email or web address] 05/28/2025 2:40 PM EST Treatment [facility] [address] [place] [address] Becky Lisa MD [address] [place] [address] 57050 [email or web address] 05/29/2025 2:40 PM EST Treatment [facility] On[facility] [address] [place] [address] 55302 Becky Lisa MD [address] [place] [address] [phone] [email or web address] 05/30/2025 2:40 PM EST Treatment [facility] [address] [place] [address] 61045 Becky Lisa MD [address] [place] [address] [phone] [email or web address] 06/04/2025 2:40 PM EST Treatment [facility] [address] [place] [address] Becky Lisa MD [address] [place] [address] [email or web address] documented as of this encounter Visit Diagnoses Not on filedocumented in this encounter Care Teams Survey Chief Relationship Specialty Start Date End Date Katlin Otero MD [address] [place] [phone] PCP - General Internal Medicine 02/13/25 documented as of this encounter Additional Source Comments The information contained in this document represents components of the legal health record. It is not the complete legal health record.[facility]
--- OUTSIDE RECORDS SUMMARY | 2025-04-27 11:07 | XMS_ITS | Encounter Summary ---
Author Organization [facility] Address [address] [place] [id number] Phone Care Team Providers Care Pulmonologist Intensivist Name Role Phone Katlin Otero MD Primary Care Provider [phone] Encounter Details Date Type Department Care Team (Late st Contact Info) Description 04/25/2025 Telephone [facility] [place] [facility] Onc [address] [place] [address] [phone] Becky Lisa MD [address] [place] [phone] [email or web address] Social History Tobacco Use Types Packs/Day Years [...] as of this encounter Progress Notes * Gricelda Reyes - 04/25/2025 9:38 AM EDT 04/[address] of the chest at 3:30 on May 07. No prep Dr Lisa will explainto her about appointment. Contacted social work about time change. Noted for her to be taken to CT directly after treatment. -CR documented in this encounter Plan of Treatment Upcoming Encounters Date Type Department Care Team (Late st Contact Info) Description 04/23/2025 Procedure Pass [facility], Ct Scan - [address] [address] 04/27/2025 3:00 PM EDT Treatment [facility] [place] [facility] Onc [address] [place] [address] [phone] Becky Lisa MD [address] [place] [phone] [email or web address] 04/30/2025 3:00 PM EDT Treatment [facility] [place] [facility] Onc [address] [place] [address] [phone] Becky Lisa MD [address] [place] [address] [phone] [email or web address] 05/01/2025 3:00 PM EDT Treatment [facility] [place] [facility] Rad Onc [address] [place] [address] [phone] Becky Lisa MD [address] [place] [address] [phone] [email or web address] 05/02/2025 3:00 PM EDT Treatment [facility] [place] [facility] Onc [address] [place] [address] [phone] Becky Lisa MD [address] [place] [address] [phone] [email or web address] 05/03/2025 3:00 PM EDT Treatment [facility] [place] [facility] Rad Onc [address] [place] [address] [phone] Becky Lisa MD [address] [place] [address] [phone] [email or web address] 05/03/2025 3:20 PM EDT Procedure visit [facility] [place] [facility] On[facility] [address] [place] [address] [phone] Becky Lisa MD [address] [place] [address] [phone] [email or web address] 05/04/2025 3:00 PM EDT Treatment [facility] [place] [facility] Onc [address] [place] [address] [phone] Becky Lisa MD [address] [place] [address] [phone] [email or web address] 05/07/2025 3:00 PM EST Treatment [facility] [place] [facility] Onc [address] [place] [address] [phone] Becky Lisa MD [address] [place] [address] [phone] [email or web address]@[email or web address] 05/07/2025 3:45 PM EST Appointment [facility], [address] [address] eBcky Lisa MD [address] [place] [address] [phone] [email or web address] 05/08/2025 2:40 PM EST Treatment [facility] [place] [facility] Rad Onc [address] [place] [address] Becky Lisa MD [address] [place] [address] [phone] [email or web address] 05/09/2025 2:40 PM EST Treatment [facility] [place] [facility] Rad Onc [address] [place] [address] Becky Lisa MD [address] [place] [address] [phone] [email or web address] 05/10/2025 2:40 PM EST Treatment [facility] [place] [facility] Onc [address] [place] [address] [phone] Becky Lisa MD [address] [place] [address] [phone] [email or web address] 05/10/2025 3:20 PM EST Procedure visit [facility] [place] [facility] Onc [address] [place] [address] [phone] Becky Lisa MD [address] [place] [address] [phone] [email or web address] 05/11/2025 2:40 PM EST Treatment [facility] [place] [facility] Onc [address] [place] [address] [phone] Becky Lisa MD [address] [place] [address] [phone] [email or web address] 05/14/2025 2:40 PM EST Treatment [facility] [place] [facility] [address] [place] [address] [phone] Becky Lisa MD [address] [place] [address] [phone] [email or web address] 05/15/2025 2:40 PM EST Treatment [facility] [place] [facility] Onc [address] [place] [address] [phone] Becky Lisa MD [address] [place] [address] [phone] [email or web address] 05/16/2025 2:50 PM EST Treatment [facility] [place] [facility] Onc [address] [place] [address] [phone] Becky Lisa MD [address] [place] [address] [phone] [email or web address] 05/17/2025 2:40 PM EST Treatment [facility] [place] [facility] Onc [address] [place] [address] [phone] Becky Lisa MD [address] [place] [address] [phone] [email or web address] 05/17/2025 3:20 PM EST Procedure visit [facility] [place] [facility] Onc [address] [place] [address] [phone] Becky Lisa MD [address] [place] [address] [phone] [email or web address] 05/18/2025 2:40 PM EST Treatment [facility] [place] [facility] Onc [address] [place] [address] [phone] Becky Lisa MD [address] [place] [address] [phone] [email or web address] 05/21/2025 2:40 PM EST Treatment [facility] [place] [facility] Onc [address] [place] [address] [phone] Becky Lisa MD [address] [place] [address] [phone] [email or web address] 05/22/2025 2:40 PM EST Treatment [facility] [place] [facility] Onc [address] [place] [address] [phone] Becky Lisa MD [address] [place] [address] [phone] [email or web address] 05/23/2025 2:40 PM EST Treatment [facility] [place] [facility] Onc [address] [place] [address] [phone] Becky Lisa MD [address] [place] [address] [phone] [email or web address] 05/24/2025 2:40 PM EST Treatment [facility] [place] [facility] On[facility] [address] [place] [address] [phone] Becky Lisa MD [address] [place] [address] [phone] [email or web address] 05/24/2025 3:20 PM EST Procedure visit [facility] [place] [facility] Onc [address] [place] [address] [phone] Becky Lisa MD [address] [place] [address] [phone] [email or web address] 05/25/2025 2:40 PM EST Treatment [facility] [place] [facility] Onc [address] [place] [address] Becky Lisa MD [address] [place] [address] [phone] [email or web address] 05/28/2025 2:40 PM EST Treatment [facility] [place] [facility] Onc [address] [place] [address] [phone] Becky Lisa MD [address] [place] [address] [phone] [email or web address] 05/29/2025 2:40 PM EST Treatment [facility] [place] [facility] Onc [address] [place] [address] [phone] Becky Lisa MD [address] [place] [address] [phone] [email or web address] 05/30/2025 2:40 PM EST Treatment [facility] [place] [facility] Onc [address] [place] [address] [phone] Becky Lisa MD [address] [place] [address] [phone] [email or web address] 06/04/2025 2:40 PM EST Treatment [facility] [place] [facility] Onc [address] [place] [address] [phone] Becky Lisa MD [address] [place] [address] [phone] [email or web address] documented as of this encounter Visit Diagnoses Not on filedocumented in this encounter Care Teams Pulmonologist Intensivist Relationship Specialty Start Date End Date Katlin Otero MD [address] [place] [address] [address] [place] [id number] PCP - General Internal Medicine 02/13/25 documented as of this encounter Additional Source Comments The information contained in this document represents components of the legal health record. It is not the complete legal health record.[facility]
--- OUTSIDE RECORDS SUMMARY | 2025-04-27 11:07 | XMS_ITS | Clinical Summary ---
Author Organization [facility] Address [address] [place] [id number] Phone Care Team Providers Care Educational Program Director Name Role Phone Katlin Otero MD Primary Care Provider [phone] Allergies Active Allergy Reactions Criticality Noted Date [...] from the original. Letha's transportation is through [employer] : ) and Letha's [employer] ([id number]). Problem Noted Date Diagnosed Date Anal cancer 03/16/2025 Cancer Staging:Clinical stage from 03/16/2025:Stage IIIA(cT3, cN1a, cM0) - Signed by Becky Lisa MD on 03/16/2025 Encounters Date Type Department Care Team Description 04/27/2025 Telephone [facility] Cancer Center At [address] [address] Sherri Del Valle RN 04/26/2025 3:10 PM EDT Procedure visit [facility] Cancer Center At [address] [address] Becky Lisa MD Anal cancer (Primary Dx) 04/25/2025 Telephone [facility] Cancer Center at [address] [address] Angelique Mcneill, PAYROLL ANALYST 04/25/2025 Telephone [facility] Cancer Center At [address] [address] Becky Lisa MD 04/24/2025 Telephone [facility] Cancer Center at [address] [address] Angelique Mcneill, PAYROLL ANALYST 04/24/2025 Telephone [facility] Cancer Center At [address] [address] Becky Lisa MD 04/23/2025 Telephone [facility] Cancer Center At [facility] Rad [address] [address] Sehrri Del Valle RN 04/23/2025 Orders Only [facility] Cancer Center At [address] [address] Becky Lisa MD Anal cancer (Primary Dx) 04/10/2025 Procedure Pass [facility] Cardiovascular And Interventional Radiology [address] [place] [address] 04/09/2025 3:06 PM EDT - 04/09/2025 11:59 PM EDT Hospital Encounter [facility] - [address] [address] Becky Lisa MD Discharge Disposition: Home or Self Care 04/09/2025 Telephone [facility] Cancer Center At [facility] Rad [address] [address] Sherri Del Valle RN 04/06/2025 Telephone [facility] Cancer Center At [address] [address] Becky Lisa MD 04/06/2025 Telephone [facility] at [address] [address] Angelique Mcneill, PAYROLL ANALYST 04/06/2025 Telephone [facility] at [address] [address] Carolyn Smith, RONALD 04/05/2025 Telephone [facility] at [address] [address] Angelique Mcneill, PAYROLL ANALYST 04/04/2025 Telephone [facility] at [address] [address] Osito Angelique, PAYROLL ANALYST 04/03/2025 Telephone [facility] at [address] [address] Angelique Mcneill, PAYROLL ANALYST transportation 04/02/2025 Telephone [facility] Cancer Center At [address] [address] Sherri Del Valle RN 03/29/2025 1:00 PM EDT Office Visit [facility] At [address] [address] Becky Lisa MD Anal cancer (Primary Dx) 03/29/2025 Telephone [facility] Cancer Center At [facility] Rad Onc [address] [place] [address] Becky Lisa MD PreAut 03/29/2025 Documentation [facility] Cancer Center At [address] [address] Sherri Del Valle RN 03/27/2025 Telephone [facility] at [address] [address] Lock Angelique, PAYROLL ANALYST confirming ride 03/23/2025 Telephone [facility] at [address] [address] Lock, Angelique, PAYROLL ANALYST transportation 03/23/2025 Telephone [facility] Cancer Center At [address] [address] Becky Lisa MD 03/19/2025 Telephone [facility] at [address] [address] Lock, Angelique, PAYROLL ANALYST transportation and insurance 03/16/2025 3:00 PM EDT Social Work [facility] at [address] [address] Becky Lisa MD 03/16/2025 1:00 PM EDT Office Visit [facility] Cancer Center At [facility] Onc [address] [place] [address] Becky Lisa MD Anal cancer (Primary Dx) 03/16/2025 Procedure Pass [facility] [address] [place] [address] 03/16/2025 Ancillary Orders [facility] Imaging [address] [place] [address] Castro, MD Castro 03/01/2025 Ancillary Orders [facility] [address] [place] [address] Castro Erazo MD 02/12/2025 - 02/12/2025 11:59 PM EDT Hospital Encounter [facility] [address] [place] [address] Castro, Castro, Discharge Disposition: Home or Self Care 02/06/2025 - 02/06/2025 11:59 PM EDT Hospital Encounter [facility] [address] [place] [address] Unknown, Castro, Discharge Disposition: Home or Self Care from Last 3 Months Family History Medical History Relation Comments Cancer Sister tariff compiling clerk Relation Status Comments Sister Social History Tobacco [...] st Contact Info) Description 04/23/2025 Procedure Pass [facility], Ct Scan - [facility] [address] [place] [address] 04/27/2025 3:00 PM EDT Treatment [facility] Cancer Center At [facility] Rad Onc [address] [place] [address] Becky Lisa MD [address] [place] [phone] [email or web address] 04/30/2025 3:00 PM EDT Treatment [facility] Cancer Center At [facility] Rad Onc [address] [place] [address] Becky Lisa MD [address] [place] [address] [email or web address] 05/01/2025 3:00 PM EDT Treatment [facility] Cancer Center At [facility] Rad Onc [address] [place] [address] Becky Lisa MD [address] [place] [address] [email or web address] 05/02/2025 3:00 PM EDT Treatment [facility] Cancer Center At [facility] Rad Onc [address] [place] [address] Becky Lisa MD [address] [place] [address] [email or web address] 05/03/2025 3:00 PM EDT Treatment [facility] Cancer Center At [facility] Rad Onc [address] [place] [address] Becky Lisa MD [address] [place] [address] [email or web address] 05/03/2025 3:20 PM EDT Procedure visit [facility] Cancer Center At [facility] Rad Onc [address] [place] [address] Becky Lisa MD [address] [place] [address] [email or web address] 05/04/2025 3:00 PM EDT Treatment [facility] Cancer Center At [facility] Rad Onc [address] [place] [address] Becky Lisa MD [address] [place] [address] [email or web address] 05/07/2025 3:00 PM EST Treatment [facility] Cancer Center At [facility] Rad Onc [address] [place] [address] Becky Lisa MD [address] [place] [address] [email or web address] 05/07/2025 3:45 PM EST Appointment [facility], Ct Scan - [address] [address] Becky Lisa MD [address] [place] [address] [email or web address] 05/08/2025 2:40 PM EST Treatment [facility] Cancer Center At [facility] Rad Onc [address] [place] [address] Becky Lisa MD [address] [place] [address] [email or web address] 05/09/2025 2:40 PM EST Treatment [facility] Cancer Center At [facility] Rad Onc [address] [place] [address] Becky Lisa MD [address] [place] [address] [email or web address] 05/10/2025 2:40 PM EST Treatment [facility] Cancer Center At [facility] Rad Onc [address] [place] [address] Becky Lisa MD [address] [place] [address] [email or web address] 05/10/2025 3:20 PM EST Procedure visit [facility] Cancer Center At [facility] Rad Onc [address] [place] [address] Becky Lisa MD [address] [place] [address] [email or web address] 05/11/2025 2:40 PM EST Treatment [facility] Cancer Center At [facility] Rad Onc [address] [place] [address] Becky Lisa MD [address] [place] [address] [email or web address] 05/14/2025 2:40 PM EST Treatment [facility] Cancer Center At [facility] Rad Onc [address] [place] [address] Becky Lisa MD [address] [place] [address] [email or web address] 05/15/2025 2:40 PM EST Treatment [facility] Cancer Center At [facility] Rad Onc [address] [place] [address] Becky Lisa MD [address] [place] [address] [email or web address] 05/16/2025 2:50 PM EST Treatment [facility] Cancer Center At [facility] Rad Onc [address] [place] [address] Becky Lisa MD [address] [place] [address] [email or web address] 05/17/2025 2:40 PM EST Treatment [facility] Cancer Center At [facility] Rad Onc [address] [place] [address] Becky Lisa MD [address] [place] [address] [email or web address] 05/17/2025 3:20 PM EST Procedure visit [facility] Cancer Center At [facility] Rad Onc [address] [place] [address] Becky Lisa MD [address] [place] [address] [email or web address] 05/18/2025 2:40 PM EST Treatment [facility] Cancer Center At [facility] Rad Onc [address] [place] [address] Becky Lisa MD [address] [place] [address] [email or web address] 05/21/2025 2:40 PM EST Treatment [facility] Cancer Center At [facility] Rad Onc [address] [place] [address] Becky Lisa MD [address] [place] [address] [email or web address] 05/22/2025 2:40 PM EST Treatment [facility] Cancer Center At [facility] Rad Onc [address] [place] [address] Becky Lisa MD [address] [place] [address] [email or web address] 05/23/2025 2:40 PM EST Treatment [facility] Cancer Center At [facility] Rad Onc [address] [place] [address] Becky Lisa MD [address] [place] [address] [email or web address] 05/24/2025 2:40 PM EST Treatment [facility] Cancer Center At [facility] Rad Onc [address] [place] [address] Becky Lisa MD [address] [place] [address] [email or web address] 05/24/2025 3:20 PM EST Procedure visit [facility] Cancer Center At [facility] Rad Onc [address] [place] [address] Becky Lisa MD [address] [place] [address] [email or web address] 05/25/2025 2:40 PM EST Treatment [facility] Cancer Center At [facility] Rad Onc [address] [place] [address] Becky Lisa MD [address] [place] [address] [email or web address] 05/28/2025 2:40 PM EST Treatment [facility] Cancer Center At [facility] Rad Onc [address] [place] [address] Becky Lisa MD [address] [place] [phone] [email or web address] 05/29/2025 2:40 PM EST Treatment [facility] Cancer Center At [facility] Rad Onc [address] [place] [address] Becky Lisa MD [address] [place] [address] [email or web address] 05/30/2025 2:40 PM EST Treatment [facility] Cancer Center At [facility] Rad Onc [address] [place] [address] Becky Lisa MD [address] [place] [address] [email or web address] 06/04/2025 2:40 PM EST Treatment [facility] Cancer Center At [facility] Rad Onc [address] [place] [address] Becky Lisa MD [address] [place] [address] [email or web address] Health Maintenance Due Date Last Done Comments [...] clinician's provided indication for this examination in [facility]: * Anal carcinoma, initial workup; PET CT done at [facility] with large anal mass, mesorectal LN [...] clinician's provided indication for this examination in [facility]: *Anal carcinoma, initial workup; PET CT done at [facility] with large anal mass,mesorectal LN and [...] and not for interpretation. us Unknown Unknown IMAna OUTSIDE IMAGING W/OUT INT ERPRETATION Final Result from Last 3 Months Insurance [facility] MEDICARE REPLACEMENT [place] MEDIC[place] PART A & [place] [address] [place] [address] MEDICARE REPLACEMENT [place] MED[place] PART A & B [facility] MEDICARE [facility]PLACEMENT [facility] MEDICARE PART A & B [facility] MEDICARE REPLACEMENT [facility] MEDICARE PART A & B [facility] MEDICARE REPLACEMENT [place] PART A & [place] [address] [place] [address] MEDICARE REPLACEMENT [place] MED[place] PART A & B Care Teams Educational Program Director Relationship Specialty Start Date End Date Katlin Otero MD [address] [place] [address] PCP - General Internal Medicine 02/13/25 Additional Source Comments The information contained in this document represents components of the legal health record. It is not the complete legal health record.[facility]
--- OUTSIDE RECORDS SUMMARY | 2025-04-27 11:07 | XMS_ITS | Encounter Summary ---
Author Organization [facility] Address [address] [place] [address] Phone Care Team Providers Care Sign Painter Name Role Phone Katlin Otero MD Primary Care Provider [phone] Encounter Details Date Type Department Care Team (Late st Contact Info) Description 04/27/2025 Telephone [facility] At [facility] Rad Onc [address] [place] [address] [phone] Sherri Del Valle RN [address] [place] [address] [email or web address] Social History Tobacco Use Types Packs/Day Years [...] this encounter Progress Notes * Sherri Del Valle, RONALD - 04/27/2025 10:06 AM EDT Call made to Yoan to ensure ride service for upcoming CT on 05/[address] 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 documented in this encounter Plan of Treatment Upcoming Encounters Date Type Department Care Team (Late st Contact Info) Description 04/23/2025 Procedure Pass [facility], Ct Scan - [address] [address] 04/27/2025 3:00 PM EDT Treatment [facility] At [facility] Rad Onc [address] [place] [address] 98564 Becky Lisa MD [address] [place] [address] 7[address] [email or web address] 04/30/2025 3:00 PM EDT Treatment [facility] At [facility] Rad Onc [address] [place] [address] 21914 Becky Lisa MD [address] [place] [address] 6[address] [email or web address] 05/01/2025 3:00 PM EDT Treatment [facility] At [facility] Rad Onc [address] [place] [address] 79302 Becky Lisa MD [address] [place] [address] 30084 [email or web address] 05/02/2025 3:00 PM EDT Treatment [facility] At [facility] Rad Onc [address] [place] [address] 80864 Becky Lisa MD [address] [place] [address] 01511 [email or web address] 05/03/2025 3:00 PM EDT Treatment [facility] At [facility] Rad Onc [address] [place] [address] 79409 Becky Lisa MD [address] [place] [address] 69528 [email or web address] 05/03/2025 3:20 PM EDT Procedure visit [facility] At [facility] Rad Onc [address] [place] [address] 90574 Becky Lisa MD [address] [place] [address] 60308 [email or web address] 05/04/2025 3:00 PM EDT Treatment [facility] Cancer [facility] At [address] [address] Becky Lisa MD [address] [place] [address] 21351 [email or web address] 05/07/2025 3:00 PM EST Treatment [facility] At [facility] Rad Onc [address] [place] [address] 77881 Becky Lisa MD [address] [place] [address] 10513 [email or web address] 05/07/2025 3:45 PM EST Appointment [facility], Ct Scan - [address] [address] Becky Lisa MD [address] [place] [address] 45093 [email or web address] 05/08/2025 2:40 PM EST Treatment [facility] At [facility] Rad Onc [address] [place] [address] 21747 Becky Lisa MD [address] [place] [address] 88475 [email or web address] 05/09/2025 2:40 PM EST Treatment [facility] At [facility] Rad Onc [address] [place] [address] 02024 Becky Lisa MD [address] [place] [address] 36374 [email or web address] 05/10/2025 2:40 PM EST Treatment [facility] At [facility] Rad Onc [address] [place] [address] 08668 Becky Lisa MD [address] [place] [address] 93776 [email or web address] 05/10/2025 3:20 PM EST Procedure visit [facility] At [facility] Rad Onc [address] [place] [address] 18575 Becky Lisa MD [address] [place] [address] 76184 [email or web address] 05/11/2025 2:40 PM EST Treatment [facility] At [facility] Rad Onc [address] [place] [address] 21544 Becky Lisa MD [address] [place] [address] 92375 [email or web address] 05/14/2025 2:40 PM EST Treatment [facility] At [facility] Rad Onc [address] [place] [address] 17322 Becky Lisa MD [address] [place] [address] 32546 [email or web address] 05/15/2025 2:40 PM EST Treatment [facility] At [facility] Rad Onc [address] [place] [address] 73304 Becky Lisa MD [address] [place] [address] 95252 [email or web address] 05/16/2025 2:50 PM EST Treatment [facility] At [facility] Rad Onc [address] [place] [address] 16240 Becky Lisa MD [address] [place] [address] 94469 [email or web address] 05/17/2025 2:40 PM EST Treatment [facility] At [facility] Rad Onc [address] [place] [address] 33092 Becky Lisa MD [address] [place] [address] 19993 [email or web address] 05/17/2025 3:20 PM EST Procedure visit [facility] At [facility] Rad Onc [address] [place] [address] 32809 Becky Lisa MD [address] [place] [address] 86299 [email or web address] 05/18/2025 2:40 PM EST Treatment [facility] At [facility] Rad Onc [address] [place] [address] 82726 Becky Lisa MD [address] [place] [address] 23675 [email or web address]@[email or web address] 05/21/2025 2:40 PM EST Treatment [facility] At [facility] Rad Onc [address] [place] [address] Becky Lisa MD [address] [place] [address] 60179 [email or web address] 05/22/2025 2:40 PM EST Treatment [facility] At [facility] Rad Onc [address] [place] [address] 43268 Becky Lisa MD [address] [place] [address] 97047 [email or web address] 05/23/2025 2:40 PM EST Treatment [facility] At [facility] Rad Onc [address] [place] [address] 50846 Becky Lisa MD [address] [place] [address] 49952 [email or web address] 05/24/2025 2:40 PM EST Treatment [facility] At [facility] Rad Onc [address] [place] [address] 99589 Becky Lisa MD [address] [place] [address] 40564 [email or web address] 05/24/2025 3:20 PM EST Procedure visit [facility] At [facility] Rad Onc [address] [place] [address] 07495 Becky Lisa MD [address] [place] [address] 33809 [email or web address] 05/25/2025 2:40 PM EST Treatment [facility] At [facility] Rad Onc [address] [place] [address] 32620 Becky Lisa MD [address] [place] [address] 81051 [email or web address] 05/28/2025 2:40 PM EST Treatment [facility] At [facility] Rad Onc [address] [place] [address] 42555 Becky Lisa MD [address] [place] [address] 11716 [email or web address] 05/29/2025 2:40 PM EST Treatment [facility] At [facility] Rad Onc [address] [place] [address] 42868 Becky Lisa MD [address] [place] [address] 19441 [email or web address] 05/30/2025 2:40 PM EST Treatment [facility] At [facility] Rad Onc [address] [place] [address] 11763 Becky Lisa MD [address] [place] [address] 78147 [email or web address] 06/04/2025 2:40 PM EST Treatment [facility] At [facility] Rad Onc [address] [place] [address] 24048 Becky Lisa MD [address] [place] [address] 04542 [email or web address] documented as of this encounter Visit Diagnoses Not on filedocumented in this encounter Care Teams Sign Painter Relationship Specialty Start Date End Date Katlin Otero MD [address] [place] [address] Drive [address] [place] [address] PCP - General Internal Medicine 02/13/25 documented as of this encounter Additional Source Comments The information contained in this document represents components of the legal health record. It is not the complete legal health record.[facility]
--- OUTSIDE RECORDS SUMMARY | 2025-04-27 11:07 | XMS_ITS | Encounter Summary ---
Author Organization [facility] Address [address] [place] [address] Phone Care Team Providers Care Manager Athletics Name Role Phone Katlin Otero MD Primary Care Provider [phone] Encounter Details Date Type Department Care Team (Late st Contact Info) Description 04/24/2025 Telephone [facility] Rad Onc [address] [place] [address] 7[address] Becky Lisa MD [address] [place] [address] 16[address] [email or web address] Social History Tobacco Use Types Packs/Day [...] encounter Progress Notes * Gricelda Reyes - 04/24/2025 1:42 PM EDT 04/24/25 Letha called in today inquiring if we changed around her transportation for her. I informed Letha that we do not schedule and reschedule rides. I have also reminded Letha that she was given paperwork yesterday explaining that transport was up to the patient and with the number if transportwas to be changed or canceled. She said she does not do that. She is unsure if she will make it today because no one took care of it. -CR documented in this encounter Plan of Treatment Upcoming Encounters Date Type Department Care Team (Late st Contact Info) Description 04/23/2025 Procedure Pass [facility], Ct Scan - [address] [address] 04/27/2025 3:00 PM EDT Treatment [facility] At [address] [address] Becky Lisa MD [address] [place] [address] 353[address] [email or web address] 04/30/2025 3:00 PM EDT Treatment [facility] At [address] [address] Becky Lisa MD [address] [place] [address] 45881 [email or web address] 05/01/2025 3:00 PM EDT Treatment [facility] At [address] [address] Becky Lisa MD [address] [place] [address] 48260 [email or web address] 05/02/2025 3:00 PM EDT Treatment [facility] At [address] [address] Becky Lisa MD [address] [place] [address] 96519 [email or web address] 05/03/2025 3:00 PM EDT Treatment [facility] Rad Onc [address] [place] [address] Becky Lisa MD [address] [place] [address] 80128 [email or web address] 05/03/2025 3:20 PM EDT Procedure visit [facility] Rad Onc [address] [place] [address] 20[address] Becky Lisa MD [address] [place] [address] 05669 [email or web address] 05/04/2025 3:00 PM EDT Treatment [facility] Rad Onc [address] [place] [address] 28628 Becky Lisa MD [address] [place] [address] 80552 [email or web address] 05/07/2025 3:00 PM EST Treatment [facility] Rad Onc [address] [place] [address] Becky Lisa MD [address] [place] [address] 77831 [email or web address] 05/07/2025 3:45 PM EST Appointment [facility], Ct Scan - [address] [address] Becky Lisa MD [address] [place] [address] 94486 [email or web address] 05/08/2025 2:40 PM EST Treatment [facility] Rad Onc [address] [place] [address] Becky Lisa MD [address] [place] [address] 37194 [email or web address] 05/09/2025 2:40 PM EST Treatment [facility] Rad Onc [address] [place] [address] Becky Lisa MD [address] [place] [address] 24394 [email or web address] 05/10/2025 2:40 PM EST Treatment [facility] Rad Onc [address] [place] [address] 14627 eBcky Lisa MD [address] [place] [address] 80270 [email or web address] 05/10/2025 3:20 PM EST Procedure visit [facility] Rad Onc [address] [place] [address] 05205 Becky Lisa MD [address] [place] [address] 01880 [email or web address]@[email or web address] 05/11/2025 2:40 PM EST Treatment [facility] Rad Onc [address] [place] [address] 66992 Becky Lisa MD [address] [place] [address] 58418 [email or web address] 05/14/2025 2:40 PM EST Treatment [facility] Rad Onc [address] [place] [address] Becky Lisa MD [address] [place] [address] 14923 [email or web address] 05/15/2025 2:40 PM EST Treatment [facility] Rad Onc [address] [place] [address] 40225 Becky Lisa MD [address] [place] [address] 90869 [email or web address]@[email or web address] 05/16/2025 2:50 PM EST Treatment [facility] Rad Onc [address] [place] [address] 0[address]31 Becky Lisa MD [address] [place] [address] 82967 [email or web address] 05/17/2025 2:40 PM EST Treatment [facility] Rad Onc [address] [place] [address] 37872 Becky Lisa MD [address] [place] [address] 81399 [email or web address] 05/17/2025 3:20 PM EST Procedure visit [facility] Rad Onc [address] [place] [address] 76975 Becky Lisa MD [address] [place] [address] 73620 [email or web address] 05/18/2025 2:40 PM EST Treatment [facility] Rad Onc [address] [place] [address] 02086 Becky Lisa MD [address] [place] [address] 47892 [email or web address] 05/21/2025 2:40 PM EST Treatment [facility] Rad Onc [address] [place] [address] 03998 Becky Lisa MD [address] [place] [address] 92684 [email or web address] 05/22/2025 2:40 PM EST Treatment [facility] Rad Onc [address] [place] [address] Becky Lisa MD [address] [place] [address] 41217 [email or web address] 05/23/2025 2:40 PM EST Treatment [facility] Rad Onc [address] [place] [address] 33622 Becky Lisa MD [address] [place] [address] 15961 [email or web address] 05/24/2025 2:40 PM EST Treatment [facility] Rad Onc [address] [place] [address] 54[address] Becky Lisa MD [address] [place] [address] 68123 [email or web address] 05/24/2025 3:20 PM EST Procedure visit [facility] Rad Onc [address] [place] [address] 18645 Becky Lisa MD [address] [place] [address] 85028 [email or web address]@[email or web address] 05/25/2025 2:40 PM EST Treatment [facility] Rad Onc [address] [place] [address] 90006 Becky Lisa MD [address] [place] [address] 12744 [email or web address] 05/28/2025 2:40 PM EST Treatment [facility] Rad Onc [address] [place] [address] 53721 Becky Lisa MD [address] [place] [address] 55268 [email or web address] 05/29/2025 2:40 PM EST Treatment [facility] Rad Onc [address] [place] [address] 82414 Becky Lisa MD [address] [place] [address] 80554 [email or web address] 05/30/2025 2:40 PM EST Treatment [facility] Rad Onc [address] [place] [address] 37725 Becky Lisa MD [address] [place] [address] 11864 [email or web address] 06/04/2025 2:40 PM EST Treatment [facility] Rad Onc [address] [place] [address] Becky Lisa MD [address] [place] [address] [email or web address] documented as of this encounter Visit Diagnoses Not on filedocumented in this encounter Care Teams Manager Athletics Relationship Specialty Start Date End Date Katlin Otero MD [address] [place] [address] [place] [phone] PCP - General Internal Medicine 02/13/25 documented as of this encounter Additional Source Comments The information contained in this document represents components of the legal health record. It is not the complete legal health record.[facility]
--- OUTSIDE RECORDS SUMMARY | 2025-04-27 11:07 | XMS_ITS | Encounter Summary ---
Author Organization [facility] Address [address] [facility] [address] [place] [phone] Phone Care Team Providers Care Software Development Project Manager Name Role Phone Katlin Otero MD Primary Care Provider Encounter Details Date Type Department Care Team (Late Contact Info) Description 04/10/2025 Procedure Pass [facility] Cardiovascular And Interventional Radiology [address] [place] [address] Social History Tobacco Use Types Packs/Day Years [...] Department Care Team (Late Contact Info) Description 04/23/2025 Procedure Pass [facility], Ct Scan - [facility] [address] [place] [address] 04/27/2025 3:00 PM EDT Treatment [facility] Rad Onc [address] [place] [address] Becky Lisa MD [address] [place] [address] 200[address] [email or web address] 04/30/2025 3:00 PM EDT Treatment [facility] Rad Onc [address] [place] [address] Becky Lisa MD [address] [place] [address] [phone] [email or web address] 05/01/2025 3:00 PM EDT Treatment [facility] Rad Onc [address] [place] [address] 276[address] Becky Lisa MD [address] [place] [address] 22520 [email or web address] 05/02/2025 3:00 PM EDT Treatment [facility] Rad Onc [address] [place] [address] 414[address] Becky Lisa MD [address] [place] [address] 40615 [email or web address] 05/03/2025 3:00 PM EDT Treatment [facility] Rad Onc [address] [place] [address] 15568 Becky Lisa MD [address] [place] [address] 11679 [email or web address] 05/03/2025 3:20 PM EDT Procedure visit [facility] Rad Onc [address] [place] [address] 769[address] Becky Lisa MD [address] [place] [address] 54926 [email or web address] 05/04/2025 3:00 PM EDT Treatment [facility] Rad Onc [address] [place] [address] Becky Lisa MD [address] [place] [address] 11296 [email or web address] 05/07/2025 3:00 PM EST Treatment [facility] Rad Onc [address] [place] [address] 46[address] Becky Lisa MD [address] [place] [address] [phone] [email or web address] 05/07/2025 3:45 PM EST Appointment [facility], Ct Scan [address] [address] Becky Lisa MD [address] [place] [address] 63041 [email or web address] 05/08/2025 2:40 PM EST Treatment [facility] Rad Onc [address] [place] [address] 51478 Becky Lisa MD [address] [place] [address] 88344 [email or web address] 05/09/2025 2:40 PM EST Treatment [facility] Rad Onc [address] [place] [address] 48242 Becky Lisa MD [address] [place] [address] 67706 [email or web address] 05/10/2025 2:40 PM EST Treatment [facility] Rad Onc [address] [place] [address] 58[address] Becky Lisa MD [address] [place] [address] 50352 [email or web address] 05/10/2025 3:20 PM EST Procedure visit [facility] Rad Onc [address] [place] [address] 07712 Becky Lisa MD [address] [place] [address] 34939 [email or web address] 05/11/2025 2:40 PM EST Treatment [facility] Rad Onc [address] [place] [address] 755[address] Becky Lisa MD [address] [place] [address] 63108 [email or web address] 05/14/2025 2:40 PM EST Treatment [facility] Rad Onc [address] [place] [address] 69017 Becky Lisa MD [address] [place] [address] 02646 [email or web address] 05/15/2025 2:40 PM EST Treatment [facility] Rad Onc [address] [place] [address] 72285 Becky Lisa MD [address] [place] [address] 48786 [email or web address] 05/16/2025 2:50 PM EST Treatment [facility] Rad Onc [address] [place] [address] Becky Lisa MD [address] [place] [address] 69075 [email or web address] 05/17/2025 2:40 PM EST Treatment [facility] Rad Onc [address] [place] [address] 76765 Becky Lisa MD [address] [place] [address] 29482 [email or web address] 05/17/2025 3:20 PM EST Procedure visit [facility] Rad Onc [address] [place] [address] 23604 Becky Lisa MD [address] [place] [address] [phone] [email or web address] 05/18/2025 2:40 PM EST Treatment [facility] Rad Onc [address] [place] [address] Becky Lisa MD [address] [place] [address] 41266 [email or web address] 05/21/2025 2:40 PM EST Treatment [facility] Rad Onc [address] [place] [address] 46966 Becky Lisa MD [address] [place] [address] 59964 [email or web address] 05/22/2025 2:40 PM EST Treatment [facility] Rad Onc [address] [place] [address] 15498 Becky Lisa MD [address] [place] [address] 04111 [email or web address] 05/23/2025 2:40 PM EST Treatment [facility] Rad Onc [address] [place] [address] 93649 Becky Lisa MD [address] [place] [address] [phone] [email or web address] 05/24/2025 2:40 PM EST Treatment [facility] Rad Onc [address] [place] [address] 17866 Becky Lisa MD [address] [place] [address] 91561 [email or web address] 05/24/2025 3:20 PM EST Procedure visit [facility] Rad Onc [address] [place] [address] 694[address] Becky Lisa MD [address] [place] [address] [phone] [email or web address] 05/25/2025 2:40 PM EST Treatment [facility] Rad Onc [address] [place] [address] 05228 Becky Lisa MD [address] [place] [address] 44639 [email or web address] 05/28/2025 2:40 PM EST Treatment [facility] Rad Onc [address] [place] [address] 988[address] Becky Lisa MD [address] [place] [address] [phone] [email or web address] 05/29/2025 2:40 PM EST Treatment [facility] Rad Onc [address] [place] [address] Becky Lisa MD [address] [place] [address] 27847 [email or web address] 05/30/2025 2:40 PM EST Treatment [facility] Rad Onc [address] [place] [address] 70971 Becky Lisa MD [address] [place] [address] 65720 [email or web address] 06/04/2025 2:40 PM EST Treatment [facility] Rad Onc [address] [place] [address] 87686 Becky Lisa MD [address] [place] [address] 70125 [email or web address] documented as of this encounter Visit Diagnoses Not on filedocumented in this encounter Care Teams Software Development Project Manager Relationship Specialty Start Date End Date Po, Katlin Perez MD [address] [place] [phone] PCP - General Internal Medicine 02/13/25 documented as of this encounter Additional Source Comments The information contained in this document represents components of the legal health record. It is not the complete legal health record.[facility]
--- OUTSIDE RECORDS SUMMARY | 2025-04-27 11:07 | XMS_ITS | Encounter Summary ---
Author Organization [facility] Address [address] [facility] [address] [place] [phone] Phone Care Team Providers Care Vp Security Name Role Phone Katlin Otero MD Primary Care Provider [phone] Reason for Referral * MRI/CAT Scan - Authorized Specialty Diagnoses / Procedures Referred By Willy bolivar Referred To Contact Radiology Diagnoses Anal cancer Procedures CT Chest Becky Lisa MD Phone: tel: fax: mailto:[email or web address] Referral ID Status Reason Start Date Expiration Date V isits Requested Visits Authorized [id number] Authorized 04/23/2025 04/23/2026 1 1 Encounter Details Date Type Department Care Team (Late st Contact Info) Description 04/23/2025 Orders Only [facility] Rad Onc [address] [place] [address] Becky Lisa MD [address] [place] [address] [email or web address] Anal cancer (Primary Dx) Social History Tobacco [...] st Contact Info) Description 04/23/2025 Procedure Pass [facility], Ct Scan - [address] [address] 04/27/2025 3:00 PM EDT Treatment [facility] Rad Onc [address] [place] [address] Becky Lisa MD [address] [place] [address] 807[address] [email or web address] 04/30/2025 3:00 PM EDT Treatment [facility] Rad Onc [address] [place] [address] Becky Lisa MD [address] [place] [address] 45[address] [email or web address] 05/01/2025 3:00 PM EDT Treatment [facility] Rad Onc [address] [place] [address] Becky Lisa MD [address] [place] [address] 51605 [email or web address] 05/02/2025 3:00 PM EDT Treatment [facility] Rad Onc [address] [place] [address] 967[address] Becky Lisa MD [address] [place] [address] 84980 [email or web address] 05/03/2025 3:00 PM EDT Treatment [facility] Rad Onc [address] [place] [address] Becky Lisa MD [address] [place] [address] [phone] [email or web address] 05/03/2025 3:20 PM EDT Procedure visit [facility] Rad Onc [address] [place] [address] 17044 Becky Lisa MD [address] [place] [address] 50832 [email or web address] 05/04/2025 3:00 PM EDT Treatment [facility] Rad Onc [address] [place] [address] 59468 Bceky Lisa MD [address] [place] [address] 33868 [email or web address] 05/07/2025 3:00 PM EST Treatment [facility] Rad Onc [address] [place] [address] Becky Lisa MD [address] [place] [address] [phone] [email or web address] 05/07/2025 3:45 PM EST Appointment [facility], Ct Scan - [address] [address] Becky Lisa MD [address] [place] [address] 027[address] [email or web address] 05/08/2025 2:40 PM EST Treatment [facility] Rad Onc [address] [place] [address] 23489 Becky Lisa MD [address] [place] [address] 84877 [email or web address] 05/09/2025 2:40 PM EST Treatment [facility] Rad Onc [address] [place] [address] 69[address] Becky Lisa MD [address] [place] [address] [phone] [email or web address] 05/10/2025 2:40 PM EST Treatment [facility] Rad Onc [address] [place] [address] 65246 Becky Lisa MD [address] [place] [address] 25058 [email or web address] 05/10/2025 3:20 PM EST Procedure visit [facility] Rad Onc [address] [place] [address] Becky Lisa MD [address] [place] [address] [phone] [email or web address] 05/11/2025 2:40 PM EST Treatment [facility] Rad Onc [address] [place] [address] 70369 Becky Lisa MD [address] [place] [address] 61282 [email or web address] 05/14/2025 2:40 PM EST Treatment [facility] Rad Onc [address] [place] [address] 02738 Becky Lisa MD [address] [place] [address] [phone] [email or web address] 05/15/2025 2:40 PM EST Treatment [facility] Rad Onc [address] [place] [address] 97417 Becky Lisa MD [address] [place] [address] 95827 [email or web address] 05/16/2025 2:50 PM EST Treatment [facility] Rad Onc [address] [place] [address] 40433 Becky Lisa MD [address] [place] [address] 66066 [email or web address] 05/17/2025 2:40 PM EST Treatment [facility] Rad Onc [address] [place] [address] 85726 Becky Lisa MD [address] [place] [address] [phone] [email or web address] 05/17/2025 3:20 PM EST Procedure visit [facility] Rad Onc [address] [place] [address] 27656 Becky Lisa MD [address] [place] [address] [phone] [email or web address] 05/18/2025 2:40 PM EST Treatment [facility] Rad Onc [address] [place] [address] Becky Lisa MD [address] [place] [address] 58024 [email or web address] 05/21/2025 2:40 PM EST Treatment [facility] Rad Onc [address] [place] [address] 41175 Becky Lisa MD [address] [place] [address] 51296 [email or web address] 05/22/2025 2:40 PM EST Treatment [facility] Rad Onc [address] [place] [address] 21214 Becky Lisa MD [address] [place] [address] 14038 [email or web address] 05/23/2025 2:40 PM EST Treatment [facility] Rad Onc [address] [place] [address] Becky Lisa MD [address] [place] [address] [phone] [email or web address] 05/24/2025 2:40 PM EST Treatment [facility] Rad Onc [address] [place] [address] 90610 Becky Lisa MD [address] [place] [address] [phone] [email or web address] 05/24/2025 3:20 PM EST Procedure visit [facility] Rad Onc [address] [place] [address] Becky Lisa MD [address] [place] [address] [phone] [email or web address] 05/25/2025 2:40 PM EST Treatment [facility] Rad Onc [address] [place] [address] 61331 Becky Lisa MD [address] [place] [address] [phone] [email or web address] 05/28/2025 2:40 PM EST Treatment [facility] Rad Onc [address] [place] [address] 11581 Becky Lisa MD [address] [place] [address] 56494 [email or web address] 05/29/2025 2:40 PM EST Treatment [facility] Rad Onc [address] [place] [address] 84315 Becky Lisa MD [address] [place] [address] 27971 [email or web address] 05/30/2025 2:40 PM EST Treatment [facility] Rad Onc [address] [place] [address] 98719 Becky Lisa MD [address] [place] [address] [phone] [email or web address] 06/04/2025 2:40 PM EST Treatment [facility] Rad Onc [address] [place] [address] 40592 Becky Lisa MD [address] [place] [address] [email or web address] Scheduled Orders Name Type Priority Associated Diagnoses Orde r Schedule CT Chest Imaging Routine Anal cancer Expected: 04/23/2025, Expires: 07/24/2025 documented as of this encounter Visit Diagnoses Diagnosis Anal cancer- Primary Malignant neoplasm of anus, unspecified site documented in this encounter Care Teams Vp Security Relationship Specialty Start Date End Date Po, Katlin Perez MD [address] [phone] PCP - General Internal Medicine 02/13/25 documented as of this encounter Additional Source Comments The information contained in this document represents components of the legal health record. It is not the complete legal health record.[facility]
--- OUTSIDE RECORDS SUMMARY | 2025-04-27 11:07 | XMS_ITS | Encounter Summary ---
Author Organization [facility] Address [address] [place] [address] Phone Care Team Providers Care Hydrology Professor Name Role Phone Katlin Otero MD Primary Care Provider [phone] Encounter Details Date Type Department Care Team (Late st Contact Info) Description 04/24/2025 Telephone [facility] at [address] [address] Angelique Mcneill LICSW [address] [place] [address] [email or web address] Social History Tobacco Use [...] as of this encounter Progress Notes * Angelique Mcneill LICSW - 04/24/2025 3:26 PM EDT Letha calls office asking about her ride. Informed her that her ride for today was scheduled on 04/04, that I have not changed any of her planned rides. Letha called Efren Brush as well, inquiring about this. She also called Gricelda in [place]. Commended her outreach and effort to comply with care though reiterated that she should call [employer] instead for to schedule, confirm, or change rides at [phone]. documented in this encounter Plan of Treatment Upcoming Encounters Date Type Department Care Team (Late st Contact Info) Description 04/23/2025 Procedure Pass [facility], Ct Scan - [address] [address] 04/27/2025 3:00 PM EDT Treatment [facility] Rad Onc [address] [place] [address] Becky Lisa MD [address] [place] [address] [email or web address] 04/30/2025 3:00 PM EDT Treatment [facility] Rad Onc [address] [place] [address] Becky Lisa MD [address] [place] [address] [email or web address] 05/01/2025 3:00 PM EDT Treatment [facility] Rad Onc [address] [place] [address] Becky Lisa MD [address] [place] [address] [email or web address] 05/02/2025 3:00 PM EDT Treatment [facility] Rad Onc [address] [place] [address] 13426 Becky Lisa MD [address] [place] [address] [email or web address] 05/03/2025 3:00 PM EDT Treatment [facility] Rad Onc [address] [place] [address] Becky Lisa MD [address] [place] [address] [email or web address] 05/03/2025 3:20 PM EDT Procedure visit [facility] Rad Onc [address] [place] [address] 39745 Becky Lisa MD [address] [place] [address] [email or web address] 05/04/2025 3:00 PM EDT Treatment [facility] Rad Onc [address] [place] [address] 8[address]72 Becky Lisa MD [address] [place] [address] 0360[address] [email or web address] 05/07/2025 3:00 PM EST Treatment [facility] Rad Onc [address] [place] [address] 43721 Becky Lisa MD [address] [place] [address] 99[address] [email or web address] 05/07/2025 3:45 PM EST Appointment [facility], [place] Scan - [address] [address] Becky Lisa MD [address] [place] [address] [email or web address] 05/08/2025 2:40 PM EST Treatment [facility] Rad Onc [address] [place] [address] Becky Lisa MD [address] [place] [address] [email or web address] 05/09/2025 2:40 PM EST Treatment [facility] Rad Onc [address] [place] [address] Becky Lisa MD [address] [place] [address] 11519 [email or web address] 05/10/2025 2:40 PM EST Treatment [facility] Rad Onc [address] [place] [address] 30274 Becky Lisa MD [address] [place] [address] [email or web address] 05/10/2025 3:20 PM EST Procedure visit [facility] Rad Onc [address] [place] [address] Becky Lisa MD [address] [place] [address] [email or web address] 05/11/2025 2:40 PM EST Treatment [facility] Rad Onc [address] [place] [address] 37310 Becky Lisa MD [address] [place] [address] 72[address] [email or web address] 05/14/2025 2:40 PM EST Treatment [facility] Rad Onc [address] [place] [address] Becky Lisa MD [address] [place] [address] 33582 [email or web address] 05/15/2025 2:40 PM EST Treatment [facility] Rad Onc [address] [place] [address] Becky Lisa MD [address] [place] [address] 34202 [email or web address] 05/16/2025 2:50 PM EST Treatment [facility] Rad Onc [address] [place] [address] 33689 Becky Lisa MD [address] [place] [address] 26509 [email or web address] 05/17/2025 2:40 PM EST Treatment [facility] Rad Onc [address] [place] [address] 42132 Becky Lisa MD [address] [place] [address] 614[address] [email or web address] 05/17/2025 3:20 PM EST Procedure visit [facility] Rad Onc [address] [place] [address] Becky Lsia MD [address] [place] [address] [email or web address] 05/18/2025 2:40 PM EST Treatment [facility] Rad Onc [address] [place] [address] Becky Lisa MD [address] [place] [address] [email or web address] 05/21/2025 2:40 PM EST Treatment [facility] Rad Onc [address] [place] [address] Becky Lisa MD [address] [place] [address] 106[address] [email or web address] 05/22/2025 2:40 PM EST Treatment [facility] Rad Onc [address] [place] [address] Becky Lisa MD [address] [place] [address] 18[address] [email or web address] 05/23/2025 2:40 PM EST Treatment [facility] Rad Onc [address] [place] [address] 37[address] Becky Lisa MD [address] [place] [address] 28033 [email or web address] 05/24/2025 2:40 PM EST Treatment [facility] Rad Onc [address] [place] [address] 30547 Becky Lisa MD [address] [place] [address] 48[address] [email or web address] 05/24/2025 3:20 PM EST Procedure visit [facility] Rad Onc [address] [place] [address] 287[address] Becky Lisa MD [address] [place] [address] [email or web address] 05/25/2025 2:40 PM EST Treatment [facility] Rad Onc [address] [place] [address] Becky Lisa MD [address] [place] [address] 38[address] [email or web address] 05/28/2025 2:40 PM EST Treatment [facility] Rad Onc [address] [place] [address] 36[address] Becky Lisa MD [address] [place] [address] [email or web address] 05/29/2025 2:40 PM EST Treatment [facility] Rad Onc [address] [place] [address] 56658 Becky Lisa MD [address] [place] [address] 8[address] [email or web address] 05/30/2025 2:40 PM EST Treatment [facility] Rad Onc [address] [place] [address] Becky Lisa MD [address] [place] [address] [email or web address] 06/04/2025 2:40 PM EST Treatment [facility] Rad Onc [address] [place] [address] Becky Lisa MD [address] [place] [address] [email or web address] documented as of this encounter Visit Diagnoses Not on filedocumented in this encounter Care Teams Hydrology Professor Relationship Specialty Start Date End Date Branden, Katlin Perez MD [address] [place] [address] [place] [phone] PCP - General Internal Medicine 02/13/25 documented as of this encounter Additional Source Comments The information contained in this document represents components of the legal health record. It is not the complete legal health record.[facility]
--- OUTSIDE RECORDS SUMMARY | 2025-04-27 11:07 | XMS_ITS | Encounter Summary ---
Author Organization [facility] Address [address] [place] [address] Drive [address] [place] [address] Phone Care Team Providers Care Dairy Bar Manager Name Role Phone Katlin Otreo MD Primary Care Provider [phone] Encounter Details Date Type Department Care Team (Late st Contact Info) Description 04/25/2025 Telephone [facility] at [address] [address] Angelique Mcneill LICSW [address] [place] [address] [email or web address] Social History Tobacco Use Types Packs/Day [...] Progress Notes * Angelique Mcneill LICSW - 04/25/2025 3:21 PM EDT Letha calls to inquire if she has a ride today. Informed Letha that her rides were set up for 2pm pick ups through 05/28 as noted on handout provided to her and mailed to her. Reiterated that she must call [employer] to confirm rides as this SW will not always be available when she calls. Encouraged calling [employer] with Letha's new schedule as she now has radiation beyond 05/28 due to recent hospitalization, to schedule rides. Noted any changes to her existing rides need go through [employer], including change in medicinal plant picker time for CT scan next week. Provided phone number again for [employer] [phone]. Acknowledged that it is frustrating to have to wait on hold but encouraged trying when she has no other plans and reviewing whole schedule with ridecoordinator to ensure all rides get scheduled including any changes, which she can likely do in onephone call. I asked if Yoan has become her SECURITY INCIDENT RESPONSE SPECIALIST as he was working on this (becoming paid caregiver), she states they are waiting for TB test results. I asked if he also does not drive-she states he does but has a monster truck that she cannot get in/out of. Inquired about switching vehicles with friend or neighbor or borrowing car so Yoan can periodically bring her to appointments. She states you haven't seen this truck and that a runner or other option to help her get into the truck is not possible. Encouraged her to have Yoan call [employer] for her if he is becoming her SECURITY INCIDENT RESPONSE SPECIALIST or at least with her,which might make it feel less overwhelming. Letha states she will call. Support and encouragement offered. documented in this encounter Plan of Treatment Upcoming Encounters Date Type Department Care Team (Late st Contact Info) Description 04/23/2025 Procedure Pass [facility], Ct Scan - [address] [address] 04/27/2025 3:00 PM EDT Treatment [facility] Rad Onc [address] [place] [address] Becky Lisa MD [address] [place] [address] [email or web address] 04/30/2025 3:00 PM EDT Treatment [facility] Rad Onc [address] [place] [address] Becky Lisa MD [address] [place] [address] [email or web address] 05/01/2025 3:00 PM EDT Treatment [facility] Rad Onc [address] [place] [address] Becky Lisa MD [address] [place] [address] 360[address] [email or web address] 05/02/2025 3:00 PM EDT Treatment [facility] Rad Onc [address] [place] [address] Becky Lisa MD [address] [place] [address] 114[address] [email or web address] 05/03/2025 3:00 PM EDT Treatment [facility] Rad Onc [address] [place] [address] Becky Lisa MD [address] [place] [address] [email or web address] 05/03/2025 3:20 PM EDT Procedure visit [facility] Rad Onc [address] [place] [address] Becky Lisa MD [address] [place] [address] 00179 [email or web address] 05/04/2025 3:00 PM EDT Treatment [facility] Rad Onc [address] [place] [address] Becky Lisa MD [address] [place] [address] [email or web address] 05/07/2025 3:00 PM EST Treatment [facility] Rad Onc [address] [place] [address] Becky Lisa MD [address] [place] [address] 24803 [email or web address] 05/07/2025 3:45 PM EST Appointment [facility], [address] [address] Becky Lisa MD [address] [place] [address] [email or web address] 05/08/2025 2:40 PM EST Treatment [facility] Rad Onc [address] [place] [address] Becky Lisa MD [address] [place] [address] [email or web address] 05/09/2025 2:40 PM EST Treatment [facility] Rad Onc [address] [place] [address] Becky Lisa MD [address] [place] [address] 33267 [email or web address] 05/10/2025 2:40 PM EST Treatment [facility] Rad Onc [address] [place] [address] 67[address] Becky Lisa MD [address] [place] [address] 18897 [email or web address] 05/10/2025 3:20 PM EST Procedure visit [facility] Rad Onc [address] [place] [address] 69773 Becky Lisa MD [address] [place] [address] 85977 [email or web address] 05/11/2025 2:40 PM EST Treatment [facility] Rad Onc [address] [place] [address] Becky Lisa MD [address] [place] [address] 83627 [email or web address] 05/14/2025 2:40 PM EST Treatment [facility] Rad Onc [address] [place] [address] Becky Lisa MD [address] [place] [address] 15863 [email or web address] 05/15/2025 2:40 PM EST Treatment [facility] Rad Onc [address] [place] [address] 40690 Becky Lisa MD [address] [place] [address] 85871 [email or web address] 05/16/2025 2:50 PM EST Treatment [facility] Rad Onc [address] [place] [address] 77463 Becky Lisa MD [address] [place] [address] 02801 [email or web address] 05/17/2025 2:40 PM EST Treatment [facility] Rad Onc [address] [place] [address]31 Becky Lisa MD [address] [place] [address] 99266 [email or web address] 05/17/2025 3:20 PM EST Procedure visit [facility] Rad Onc [address] [place] [address] 79150 Becky Lisa MD [address] [place] [address] 05788 [email or web address] 05/18/2025 2:40 PM EST Treatment [facility] Rad Onc [address] [place] [address] 6[address] Becky Lisa MD [address] [place] [address] 65338 [email or web address] 05/21/2025 2:40 PM EST Treatment [facility] Rad Onc [address] [place] [address] 34952 Becky Lisa MD [address] [place] [address] 14080 [email or web address] 05/22/2025 2:40 PM EST Treatment [facility] Rad Onc [address] [place] [address] Becky Lisa MD [address] [place] [address] 59334 [email or web address] 05/23/2025 2:40 PM EST Treatment [facility] Rad Onc [address] [place] [address] 34329 Becky Lisa MD [address] [place] [address] 64166 [email or web address] 05/24/2025 2:40 PM EST Treatment [facility] Rad Onc [address] [place] [address]6568 Becky Lisa MD [address] [place] [address] 59862 [email or web address] 05/24/2025 3:20 PM EST Procedure visit [facility] Rad Onc [address] [place] [address] Becky Lisa MD [address] [place] [address] 84510 [email or web address] 05/25/2025 2:40 PM EST Treatment [facility] Rad Onc [address] [place] [address] Becky Lisa MD [address] [place] [address] 94698 [email or web address] 05/28/2025 2:40 PM EST Treatment [facility] Rad Onc [address] [place] [address] 38[address] Becky Lisa MD [address] [place] [address] 68137 [email or web address] 05/29/2025 2:40 PM EST Treatment [facility] Rad Onc [address] [place] [address] Becky Lisa MD [address] [place] [address] 71543 [email or web address] 05/30/2025 2:40 PM EST Treatment [facility] Rad Onc [address] [place] [address] Becky Lisa MD [address] [place] [address] 08070 [email or web address] 06/04/2025 2:40 PM EST Treatment [facility] Rad Onc [address] [place] [address] 08160 Becky Lisa MD [address] [place] [address] [email or web address] documented as of this encounter Visit Diagnoses Not on filedocumented in this encounter Care Teams Dairy Bar Manager Relationship Specialty Start Date End Date Katlin Otero MD [address] [place] [phone] PCP - General Internal Medicine 02/13/25 documented as of this encounter Additional Source Comments The information contained in this document represents components of the legal health record. It is not the complete legal health record.[facility]
--- OUTSIDE RECORDS SUMMARY | 2025-04-27 11:07 | XMS_ITS | Clinical Summary ---
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, CMS/HCC V28) Discharge Disposition: Home or Self Care 02/06/2025 Telephone [facility] Hematology Oncology [address] [place] [address] Nikos Keane MD from Last [...] PM EDT Squamous cell carcinoma of anus ([facility] V24, [facility] V28) from Last 3 Months Results * [...] Signed Date: 02/12/2025 06:00 ET Workstation ID: [id number] Transcribed By: Self Edit Transcribed Date: 02/12/2025 [...] Signed Date: 02/12/2025 06:00 ET Workstation ID: [id number] Transcribed By: Self Edit Transcribed Date: 02/12/2025 05:26 ET Amalia Dodson MD IMG NM PROCEDURES Final Result from Last 3 Months Insurance [employer]
== END 2025-04-27 09:51 | disposition home or self-care (01) ==
LOC: HO.US 09:50
PROVIDERS: PCP Internal Medicine; Visit Provider Internal Medicine
DX: Z12.11 Encounter for screening for malignant neoplasm of colon (principal); I82.623 Acute embolism and thrombosis of deep veins of upper extremity, bilateral; R60.9 Edema, unspecified
CPT/HCPCS: 93970

== ENCOUNTER → 2025-04-27 09:52 | Outpatient (BNV) | payer MEDICARE, SELFPAY | PROVIDERS: PCP Internal Medicine; Visit Provider Radiology Diagnostic Radiology | DX: I80.8 Phlebitis and thrombophlebitis of other sites (principal) | CPT/HCPCS: 93970 ==